=== PATIENT | female | born 1985 | race Caucasian/White ===

== ENCOUNTER 2020-01-19 19:49 | Inpatient (IN) | payer BC ==
[2020-01-19] MEDS ORDERED: Enoxaparin Sodium 80 MG/0.8 ML SYRINGE ONE (20:43)
[2020-01-19] MEDS ORDERED: Nitroglycerin 0.4 MG TAB (25 Tab Bottle) SL PRN (21:15)
[2020-01-19] MEDS ORDERED: Dextrose 5% in Water 1,000 ML IV PRN (21:15)
[2020-01-19] MEDS ORDERED: Dextrose 50% Abboject 50 ML SYRINGE SLOW IVP PRN (21:15)
[2020-01-19] MEDS ORDERED: Calcium Carbonate 500 MG ChewTAB PO PRN (21:20)
[2020-01-19] MEDS ORDERED: HumaLOG 300 UNITS/3 ML VIAL SC PRN ×2 (21:20)
[2020-01-19] MEDS ORDERED: Senokot S 8.6-50 MG TAB PO PRN (21:20)
--- NOTE | 2020-01-19 21:29 | PDOC.FPRHP ---
- History of Present Illness Chief Complaint: SOB, CP History of Present Illness: Pt is a 34 yo F with PMH of Type 1 DM, Hypothyroid, depression who presents with chief complaint of SOB and CP with exertion for the last 2-3 weeks. She had an episode today where she was walking and she got very short of breath with chest pain like an elephant was sitting on the center of her chest. She had associated dizziness, MCCARTY and "clammy feeling". It resolved with rest. These episodes happen almost every time she has exerted herself over the last 2-3 weeks but have been getting worse. She went to her PCP about 2 weeks ago to get evaluated and was given Amoxicillin, whose course was finished today, for a diagnosis of bronchit is even though she never had a cough. She also has noticed swelling in her b/l LE that started today and over the last week or so she has had to sleep sitting up in bed. She denies any recent illnesses or changes in medications. Denies fever,chills, abdominal pain, paroxysmal nocturnal dyspnea. She does not see a defensive fire control systems operator or any other specialists. Has no past history of cardiac issues. ED Course: Lasix 40mg, ASA - Allergies/Adverse Reactions Allergies Allergy/AdvReac Type Severity Reaction Status Date / Time clarithromycin [From Biaxin] Allergy Verified 01/19/20 23:52 iodine Allergy Verified 01/19/20 23:52 meperidine [From Demerol] Allergy Verified 01/19/20 23:52 - Home Medications Medication Instructions Recorded Confirmed Type Insulin Glargine,Hum.Rec.Anlog 100 units SQ DAILY 01/20/20 01/20/20 History [Lantus] Insulin Lispro [Humalog Kwikpen 100 unit SC DAILY 01/20/20 01/20/20 History U-100] Propranolol HCl [Inderal Xl] 80 mg PO HS 01/20/20 01/20/20 History Thyroid,Pork [[place] Thyroid] 120 mg PO DAILY 01/20/20 01/20/20 History Venlafaxine HCl [Effexor] 37.5 mg PO DAILY 01/20/20 01/20/20 History - History PMHx: Type 1 DM, Hypothyroid, depression PSHx: c section, hand surgery FHx: mom - stroke dad- [facility] at age 50 s/p stents grandfather-pacemaker, PE at 30 years Social: former smoker, quit 2 years ago. Used to smoke 1/4 ppd, denies alcohol or drugs - Review of Systems General: denies: fever/chills Eyes: denies: vision changes Respiratory: reports: shortness of breath, exercise intolerance. denies: cough Cardiovascular: reports: chest pain, edema. denies: palpitation Gastrointestinal: denies: nausea, vomiting Skin: denies: rashes Neurological: denies: syncope, weakness Psychological: denies: anxiety - Vital signs BP: 114/80 HR: 95 RR: 20 Tmax: 98.6 Pox: 97% on RA Wt: 75kg - Physical Exam Constitutional: NAD, awake, alert and oriented HEENT: normocephalic and atraumatic, conjunctiva clear, no scleral icterus, grossly normal vision, grossly normal hearing Neck: supple Heart: pulses present -Heart: 1-2+ pitting edema in b/l LE S3 appreciated on exam Lungs: CTAB, no respiratory distress, good air movement Abdomen: soft, non-tender Neurological: no focal deficit, CN II-XII intact Skin: no rash/lesions Psychiatric: normal mood and affect, good judgment and insight FMR H&P: Results - Labs Result Diagrams: 01/20/20 02:25 01/20/20 02:25 - EKG Interpretation EKG: normal sinus rhythm right BBB prolonged QTc at 698 FMR H&P: A/P - Plan SOB 2/2 new onset HF -new onset LLE edema, SOB and CP with exertion, orthopnea -s/p 40mg Lasix in ED, will continue with 20mg BID -elevated BNP on admission at 1284 -EKG showed new RBBB -strict I/Os -echo pending -cardiology consult in AM chest pain r/o ACS -s/p ASA and Th Lovenox in ED -indeterminate trop at .179, continue to trend -risk stratification labs pending -will hold Th Lovenox in AM pending cardiology recs and consult in the AM anemia -Hgb 10.3 on admission -iron studies pending prolonged QTc -OTc 698 on admission -avoid use of medications that prolong QT interval -continuos cardiac monitoring Type 1 DM -aware, continue home Lantus 5u qAM and 10u QHS -SSI Hypothyroid -TSH elevated on lab work -according to patient, her medication was just increased less than 4 weeks ago for this reason -outpatient follow up and management elevated liver enzymes -aware, continue to monitor -consider RUQ u/s if does not resolve depression -aware, continue home meds tachycardia -aware, hold home propanolol in case she needs a stress test Dispo: admit to tele DVT ppx: Th Lovenox Fluids: KVO Diet: HH/ NPO@midnight PCP- [facility] call Code: FULL FMR H&P: Upper Level - Plan Date/Time: 01/19/202126 Chris Kohler PGY3, have evaluated this patient and agree with findings/plan as outlined by commissioner of internal revenue resident. Pertinent changes/additions are listed here. 34-year-old female with medical history of type 1 diabetes and hypothyroidism transferred from [place] emergency room for chest pain. Onset of symptoms was a couple of weeks ago, intermittent chest pain worse with exertion and with associated shortness of breath. She was tested Covid negative. Reports today it was worse than it ever has been felt like she might pass out but did not syncopized. In [place] she was given aspirin and has been given therapeutic Lovenox in our emergency department family history notable for father who had VA at age 50. No significant substance use other than former smoker. No history of cardiac problems personally other than tachycardia. Pt states she was diagnosed with tachycardia after being evaluated for migraine. Was placed on propranolol. Has not seen defensive fire control systems operator before On exam her vitals are normal and stable. Her heart has regular rate and rhythm with no murmurs but has an S3. No JVD, +1 pitting edema in bilateral lower extremities. Pain not reproducible. Lungs clear to auscultation bilaterally. Assessment and plan Chest pain secondary to new onset CHF exacerbation with or without ACS A- Pt hemodynamically stable and s/p ASA and 1 dose Th Lovenox given at 2100. EKG conscerning for RBBB, elevated QTc. Trop indetrminate at 1.79. BNP 1284. P- Will admit to [facility] for new onset CHF, anticipate more than 2 midnights -s/p 40meq lasix and pt not requireing O2, continue 20meq lasix daily -trend trops -ECHO -FLP, mg, phos -plan for cardiology consult in the AM -npo at midnight Elevated QTc A- qtc 698 on EKG in ED P- avoid qt prolonging meds -plan for repeat either before DC or outpt Tachycardia A- Pt states she was Dx with tachycardia after being evaluated for migraine. Was placed on propranolol. Has not seen defensive fire control systems operator before P- Will hold home propranolol for probability of stress test tomorrow Microcytic anemia A- hemoglob 10.3, possibly mixed etiology P- folate/b12/iron studies -will monitor dialy CBC with lower threshold for iron infusion considering new c ardiac problems hypothyroid A- meds (throid armour) were recently increased outpt, tsh 9 P- continue home med, f/u outpt for repeat Transaminitis A- slight bump in AST/ALT/Alk Phos. No GI complaints. Considering new onset CHF possibly 2/2 congestive hepatopathy P- f/u outpt, would consider RUQ US if persistent after cardiac improvement DM1 -home insulin, accuchecks, CC diet Depression -home meds CODE: Full dispo: inpt tele PCP: [facility] IVF: KVO DVT Ppx: pt s/p 1 dose Th lovenox @ 2100, meds to follow pending mgmt per cardiology and depending on trops Addendum - Attending - Attending Attestation Date/Time: 01/19/202141 I personally evaluated the patient and discussed the management with Dr. Juarez and Dr. Brewster I agree with the History, Examination, Assessment and Plan documented above with any addition or exceptions noted below. Admit. Evaluate and treat for new onset HF. Monitor for dysrrhymia. Rule out ACS due to reported angina. Treat and adjust insulin. Make sure TSH is between 1 and 3. Joycelyn
[2020-01-19 23:32] VITALS: BMI 33.3
[2020-01-19 23:56] LABS: Hemoglobin A1c 10.9 % (4.0-6.0)
[2020-01-20 00:06] LABS: Phosphorus 3.3 mg/dL (2.3-4.7)
[2020-01-20 00:09] LABS: Iron 21 ug/dL (50-170); Iron Binding Capacity, Total 389 mcg/dL (265-497)
[2020-01-20 00:14] LABS: Troponin I 0.157 ng/mL (< 0.028)
[2020-01-20 02:56] LABS: Band 6 % (5-11); Eosinophils 10 % (0-10); Hemoglobin 9.5 g/dL (12.0-16.0); Lymphocytes 44 % (21-51); MDiff Complete? YES; Mean Corpuscular HGB CONC 30.4 g/dL (32.0-36.0); Mean Corpuscular Hemoglobin 26.3 pg (27.0-31.0); Mean Corpuscular Volume 86.8 fL (78.0-98.0); Mean Platelet Volume 8.1 fL (7.4-10.4); Monocytes 5 % (0-10); Neutrophil 35 % (42-75); Platelet Count 361 thou/uL (130-400); Platelet Morphology Comment Appears Adequate; RBC Distribution Width 13.8 % (11.5-14.5); Red Blood Cell (RBC) Count 3.62 mill/uL (4.20-5.40); White Blood Cell (WBC) Count 10.4 thou/uL (4.8-10.8)
[2020-01-20 02:57] LABS: Troponin I 0.156 ng/mL (< 0.028)
[2020-01-20 03:02] LABS: ALT (SGPT) 47 U/L (8-55); AST (SGOT) 44 U/L (5-34); Albumin 2.9 g/dL (3.5-5.0); Alkaline Phosphatase 102 U/L (40-110); Anion Gap 14 mmol/L (10-20); BUN (Urea Nitrogen) 11 mg/dL (7.0-18.7); Bilirubin, Total 0.4 mg/dL (0.2-1.2); Calc. Creatinine Clearance 122 mL/min (70-130); Calcium 8.7 mg/dL (7.8-10.44); Carbon Dioxide 24 mmol/L (22-29); Cardiac Risk 4.1 (Less than 4.5); Chloride 101 mmol/L (98-107); Cholesterol 146 mg/dl (< 200 Desired); Globulin 2.9 g/dL (2.4-3.5); Glucose 189 mg/dL (70-105); HDL Cholesterol 36 mg/dL (>60 Neg Risk); LDL Cholesterol, Calculated 90 mg/dL; Protein, Total 5.8 g/dL (6.0-8.3); Sodium 135 mmol/L (136-145); Triglycerides 100 mg/dL (Less than 150)
[2020-01-20] MEDS ORDERED: Magnesium 2 GM/50 ML 2 GM in Premix Bag 1 BAG IVPB SCH (05:30)
[2020-01-20] MEDS: Furosemide 20 MG/2 ML VIAL SLOW IVP SCH ×2 (05:49→15:25)
[2020-01-20] MEDS ORDERED: Furosemide 40 MG/4 ML VIAL SLOW IVP SCH (06:00)
--- NOTE | 2020-01-20 06:49 | PDOC.FM ---
- Subjective Subjective: Ms. Vargas was resting comfortably in bed this morning. She slept with the head of her bed slightly raised so she would not feel uncomfortable or SOB. She says she is not SOB lying in bed but has not gotten up to walk around and that's when she normally feels that way. She denies CP this AM. - Objective Vital Signs & Weight: Vital Signs (12 hours) Temp Pulse Resp BP Pulse Ox 01/20/20 04:00 98.0 F 98 16 97/56 L 93 L 01/20/20 01:04 98 01/19/20 22:30 98.2 F 92 16 109/68 98 Weight Weight 82.1 kg Result Diagrams: 01/20/20 02:25 01/20/20 02:25 EKG Reviewed by me: Yes (tele: Richard HOOPER, SR 80-90s) Phys Exam - Physical Examination Constitutional: NAD HEENT: moist MMs, sclera anicteric Neck: full ROM Respiratory: no wheezing, clear to auscultation bilateral Cardiovascular: RRR S3 Gastrointestinal: soft, non-tender Musculoskeletal: pulses present, edema present Neurological: non-focal, moves all 4 limbs Psychiatric: normal affect, A&O x 3 Skin: no rash Dx/Plan - Plan Plan: SOB 2/2 new onset HF -new onset LLE edema, SOB and CP with exertion, orthopnea -s/p 40mg Lasix in ED, Continue with 20mg BID -elevated BNP on admission at 1284 -EKG showed new RBBB -strict I/Os, dialy weights -echo pending -Cardiology consult this AM -UDS pending Chest pain likely 2/2 demand ischemia -s/p ASA and Th Lovenox in ED -trop 0.179, 0.157, 0.156 -risk stratification labs pending -Hold lovenox, cards consult this AM Normocytic anemia -Hgb 10.3 on admission -iron low, % sat low, TIBC normal, ferritin, normal, B12 low, folate normal -likely has poor diet due to DMI prolonged QTc -OTc 698 on admission -avoid use of medications that prolong QT interval -continuos cardiac monitoring Type 1 DM -Continue home Lantus 5u qAM and 10u QHS -SSI Hypothyroid -TSH elevated on lab work -according to patient, her medication was just increased less than 4 weeks ago for this reason -outpatient follow up and management Elevated liver enzymes -aware, continue to monitor -consider RUQ u/s if does not resolve Depression -Continue home meds Tachycardia -aware, hold home propanolol in case she needs a stress test Dispo: admit to tele DVT ppx: Th Lovenox Fluids: KVO Diet: HH/ NPO@midnight [facility]- [facility] call Code: FULL Addendum - Attending - Attending Attestation Date/Time: 01/20/20 1059 I personally evaluated the patient and discussed the management with Dr. Pacheco. I agree with the History, Examination, Assessment and Plan documented above with any addition or exceptions noted below. Patient stable. Here for new onset CHF. Echo, Cardiology consult, UDS, diuresis.
[2020-01-20] MEDS ORDERED: Enoxaparin Sodium 80 MG/0.8 ML SYRINGE SC SCH (09:00)
[2020-01-20] MEDS: Venlafaxine HCl 37.5 MG TAB PO SCH (09:40)
[2020-01-20] MEDS: Thyroid 60 MG TAB PO SCH (09:41)
[2020-01-20] MEDS: Insulin Glargine 5 UNITS in Pre-Filled Syringe 1 EACH SC SCH (10:31)
--- NOTE | 2020-01-20 12:38 | CON ---
DATE OF CONSULTATION: 01/20/2020 HISTORY OF PRESENT ILLNESS: This is a 34-year-old female with a past medical history of type 1 diabetes, hypothyroidism, depression, and ventricular tachycardia that she is being treated for, who presents to the hospital through the ER with a chief complaint of shortness of breath, chest pain, and dizziness. She states that the symptoms began 2 to 3 weeks ago and has been progressively worsening. She states that the symptoms are worse with exertion and resolve with rest. She states that she would have a pain in her chest that felt like pressure whenever she was walking. She saw her primary care physician who treated her for bronchitis with antibiotics. After 3 days of azithromycin and worsening symptoms, the patient presented to the ER. At that time, she experienced a presyncopal episode as well as tunnel vision. She does report associated orthopnea, but denies any paroxysmal nocturnal dyspnea. The patient also reports that she was having swelling in her legs that started one day prior to admission. In regard to her tachycardia, approximately 5 years ago, she was having headaches and some dizziness and was found to have a heart rate in the 230s. At that time, she was started on propranolol 80 mg XR and says that since then she has been improved. PAST MEDICAL HISTORY: Type 1 diabetes, hypothyroidism, depression, potentially SVT? PAST SURGICAL HISTORY: x1, left wrist surgery. SOCIAL HISTORY: Two year pack history of smoking and quit many years ago. Denies drug use. Denies alcohol use. FAMILY HISTORY: Positive family history for coronary artery disease, her father had heart stents in his 50s and her mother had a stroke at age of 62. ALLERGIES: INCLUDE IODINE, MEPERIDINE, CLARITHROMYCIN. MEDICATION LIST: 1. Lantus. 2. Propranolol 80 mg extended release. 3. Brogan Thyroid 120 mcg daily. 4. Venlafaxine 37.5 mg p.o. daily. PHYSICAL EXAMINATION: VITAL SIGNS: Temperature 98.2, pulse 94, respirations 16, O2 saturation 96% on room air, blood pressure 101/57. GENERAL: Obese female, in no acute distress. NECK: No JVD appreciated, no bruits heard. LUNGS: Clear to auscultation bilaterally. HEART: Regular rate and rhythm. No murmurs or extra heart sounds heard. ABDOMEN: Soft, nontender, no hepatic jugular distention seen. EXTREMITIES: Trace edema, 2+ radial and posterior tibial pulses bilaterally. LABORATORY DATA: Hemoglobin 9.5, hematocrit 31.4, platelets 361. Sodium 135, potassium 4.0, chloride 101, bicarb 24, BUN 11, creatinine 0.83, glucose 189, magnesium 1.3. LDL 90, HDL 63, triglycerides 100, TSH 9.06, albumin 2.9. BNP was found to be 1284.5. A1c was 10.9. Initial troponin was 0.17, now 0.15. Chest x-ray shows pulmonary edema with trace pleural effusions. EKG shows right bundle branch block. Some ST depression in V5 and V6 as well as right bundle branch block. IMPRESSION: 1. Acute heart failure. 2. Fluid overload secondary to above. 3. Potentially supraventricular tachycardia. 4. Type 1 diabetes. 5. Hypothyroidism. 6. Depression. 7. QTc prolongation PLAN: Given lack of previous heart history, we will perform heart catheterization on this patient following the echo results. The patient will need to be put on Coreg 3.125 mg b.i.d., valsartan 40 mg p.o. daily with plans to transition to Entresto upon discharge, and Lipitor 80 mg p.o. at bedtime. Continue diuresis as she has had a favorable response until now. Given the patient's iodine allergy, she will likely need to undergo desensitization with Benadryl and steroids before a heart cath possibly on Thursday. Job ID: [id number] MTDD
[2020-01-20 16:22] LABS: Amphetamine Not Detected (NotDetected); Barbiturates Screen Not Detected (NotDetected); Benzodiazepine Screen Not Detected (NotDetected); Cocaine Metabolite Screen Not Detected (NotDetected); Medtox Reader # READER 4; Methadone Not Detected (NotDetected); Methamphetamine Not Detected (NotDetected); Opiate Screen Not Detected (NotDetected); Oxycodone Screen Not Detected (NotDetected); Phencyclidine (PCP) Not Detected (NotDetected); THC/Cannabinoid Screen Not Detected (NotDetected); Tricyclic Screen Not Detected (NotDetected)
[2020-01-20 16:23] LABS: Medtox Control Line Valid? VALID (VALID)
[2020-01-20] MEDS: Carvedilol 3.125 MG TAB PO SCH (17:45)
[2020-01-20] MEDS: Acetaminophen 325 MG TAB PO PRN (20:07)
[2020-01-20] MEDS: Atorvastatin Calcium 40 MG TAB PO SCH (20:07)
[2020-01-20] MEDS: Insulin Glargine 10 UNITS in Pre-Filled Syringe 1 EACH SC SCH (21:11)
[2020-01-21 05:12] LABS: ALT (SGPT) 44 U/L (8-55); AST (SGOT) 34 U/L (5-34); Albumin 3.1 g/dL (3.5-5.0); Alkaline Phosphatase 108 U/L (40-110); Anion Gap 14 mmol/L (10-20); BUN (Urea Nitrogen) 9 mg/dL (7.0-18.7); Bilirubin, Total 0.4 mg/dL (0.2-1.2); Calc. Creatinine Clearance 123 mL/min (70-130); Calcium 8.6 mg/dL (7.8-10.44); Carbon Dioxide 26 mmol/L (22-29); Chloride 95 mmol/L (98-107); Glucose 286 mg/dL (70-105); Potassium 4.3 mmol/L (3.5-5.1); Protein, Total 6.1 g/dL (6.0-8.3); Sodium 131 mmol/L (136-145)
[2020-01-21 05:15] LABS: Band 2 % (5-11); Eosinophils 1 % (0-10); Hemoglobin 10.4 g/dL (12.0-16.0); Hypochromia SLIGHT = 6-15 cells (100X) (0-5/hpf); Lymphocytes 31 % (21-51); MDiff Complete? YES; Mean Corpuscular HGB CONC 29.9 g/dL (32.0-36.0); Mean Corpuscular Volume 86.9 fL (78.0-98.0); Mean Platelet Volume 8.6 fL (7.4-10.4); Monocytes 6 % (0-10); Neutrophil 60 % (42-75); Platelet Count 372 thou/uL (130-400); Platelet Morphology Comment Appears Adequate; RBC Distribution Width 13.8 % (11.5-14.5); Red Blood Cell (RBC) Count 4.01 mill/uL (4.20-5.40); Target Cells SLIGHT = 2-5 cells (100X) (0-1/hpf); White Blood Cell (WBC) Count 7.2 thou/uL (4.8-10.8)
--- NOTE | 2020-01-21 06:24 | PDOC.FM ---
- Subjective Subjective: Patient reports improvement in her breathing today and says she has been urinating quite a bit. Spoke with patient regarding her new diagnosis of HF. She denied alcohol or drug use and said she was last 17 years ago. - Objective Vital Signs & Weight: Vital Signs (12 hours) Temp Pulse Resp BP Pulse Ox 01/21/20 04:00 98.4 F 95 15 90/54 L 95 01/21/20 02:42 97 01/21/20 00:00 97 94/50 L 01/20/20 19:53 99.4 F 100 15 95/52 L 96 Weight Weight 82.1 kg I&O: 01/19/20 01/20/20 01/21/20 06:59 06:59 06:59 Intake Total 550 Output Total 1300 Balance -750 Result Diagrams: 01/21/20 04:18 01/21/20 04:18 Additional Labs: UDS - negative EKG Reviewed by me: Yes (tele: SR, 1st degree AVB, BBB) Radiology Reviewed by me: Yes Radiology: ECHO: EF 35-40% Phys Exam - Physical Examination Constitutional: NAD HEENT: moist MMs, sclera anicteric Neck: no JVD, full ROM Respiratory: no wheezing, clear to auscultation bilateral Cardiovascular: RRR Gastrointestinal: soft, non-tender, no distention Musculoskeletal: pulses present, edema present LE edema improved from previous days Neurological: moves all 4 limbs Psychiatric: normal affect, A&O x 3 Skin: no rash Dx/Plan - Plan Plan: SOB 2/2 new onset HF -new onset LLE edema, SOB and CP with exertion, orthopnea -BNP 1284, 1004 -UDS neg -EKG showed new RBBB -strict I/Os, daily weights: 1300mL urine output on 11/20 -Echo: EF 35-40% -Cardiology consult (): start valsartan, atorvastatin, coreg. Cath on Thursday. Will eventually be on entresto. -Decreased lasix to 20mg PO daily Chest pain likely 2/2 demand ischemia -s/p ASA and Th Lovenox in ED -trop 0.179, 0.157, 0.156 -lipids, phos wnl Normocytic anemia -Hgb 10.3, 10.4 -iron low, % sat low, TIBC normal, ferritin, normal, B12 low, folate normal -likely has poor diet due to DMI Hypomagnesium -Mg 1.3, replaced Prolonged QTc -OTc 698 on admission -avoid use of medications that prolong QT interval -continuos cardiac monitoring Type 1 DM -Continue home Lantus 5u qAM and 10u QHS -Allow patient to administer with meal insulin based on carbs, SSI prn Hypothyroid -TSH elevated, [id number] -according to patient, her medication was just increased less than 4 weeks ago for this reason -outpatient follow up and management Elevated liver enzymes, resolved -AST/ALT: 52/58, 34/44 Depression -Continue home meds Tachycardia, resolved -Hold propanolol -Continue coreg prescribed by cards Dispo: Discharge pending completion of workup for new onset HFrEF. Dr. Wharton seems to be planning for a cath on Thursday. DVT ppx: Th Lovenox Fluids: KVO Diet: HH PCP- [facility] call Code: FULL Addendum - Attending - Attending Attestation Date/Time: 01/21/20 5201 I personally evaluated the patient and discussed the management with Dr. Pacheco. I agree with the History, Examination, Assessment and Plan documented above with any addition or exceptions noted below. Patient reports feeling improved. She continues on treatment for new onset sCHF. Cardiology on board, suspect heart cath on Thursday. Continue mild diuresis and med augmentation to optimize her cardiac function.
--- NOTE | 2020-01-21 06:41 | CON ---
DATE OF CONSULTATION: ADDENDUM: To the Cardiology consult note done by Dr. Donato Castañeda. INDICATION FOR CONSULTATION: This is a 34-year-old female with new onset congestive heart failure symptoms. I have reviewed this patient. I have evaluated the patient, reviewed the patient with the Dr. Castañeda. We have also examined the patient and we have also evaluated the echocardiogram. We discussed the plan. She is a very pleasant 34-year-old female with a long history of diabetes as well as some tachycardia and hypothyroidism, who had some increasing shortness of breath with chest pain and dizziness. Her symptoms have been ongoing for a couple of weeks and she thought she had COVID, but then apparently she has had a negative test. She was started on some antibiotics, but did not get any better and she presented to the emergency room. She did have a presyncopal episode, but otherwise has been doing relatively well. She did have an echocardiogram performed today, which shows ejection fraction of 35% to 40%, the left ventricle and left atrium both appeared to be dilated as well as the right ventricle appears to be somewhat dilated. Given her long history of symptoms and diabetes with her risk factors, she has not been on previous medications for her cholesterol, which is elevated, I would suggest that she undergo cardiac catheterization as was noted in the chart by Dr. Castañeda. Her EKG does show a right bundle branch block and given the history, would proceed with cardiac catheterization in this female as she does appear to have symptoms of what I would consider to be unstable type angina. She does have a history of iodine allergies, which she says she is uncertain about. She was told about this by her mother when she was a child, but given the fact that she has been relatively stable at this time, she has no chest pain, I would consider cardiac catheterization after she has been premedicated with steroids and Benadryl and the H1 blockers. We are more than happy to continue to follow the patient with you, but I would agree with the assessment and plan as outlined by Dr. Castañeda. Most likely, we will plan for a cardiac catheterization on Thursday unless the patient deteriorates over the weekend. Job ID: [id number] MTDD
[2020-01-21] MEDS: Furosemide 20 MG/2 ML VIAL SLOW IVP SCH (07:46)
[2020-01-21] MEDS: Aspirin 81 mg Enteric Coated Tablet PO SCH (08:36)
[2020-01-21] MEDS: Venlafaxine HCl 37.5 MG TAB PO SCH (08:36)
[2020-01-21] MEDS: Valsartan 80 MG TAB PO SCH (08:37)
[2020-01-21] MEDS: Thyroid 60 MG TAB PO SCH (08:39)
[2020-01-21] MEDS: Carvedilol 3.125 MG TAB PO SCH ×2 (08:39→16:43)
[2020-01-21] MEDS: Insulin Glargine 5 UNITS in Pre-Filled Syringe 1 EACH SC SCH (08:40)
[2020-01-21] MEDS: Acetaminophen 325 MG TAB PO PRN ×2 (08:41→16:43)
--- NOTE | 2020-01-21 12:12 | PDOC.CPN ---
- Subjective Date: 01/21/20 Time: 09:35 Interval history: No overnight events, she denies any chest pain or shortness of breath. She has already been up and walking in the hallway today with no cardiac complaints. - Review of Systems General: denies: fever/chills, weight/appetite/sleep changes, night sweats, fatigue Respiratory: denies: cough, congestion, shortness of breath, exercise intolerance Cardiovascular: denies: chest pain, palpitation, edema, paroxysmal nocturnal dyspnea, orthopnea Gastrointestinal: denies: nausea, vomiting, diarrhea, constipation, abd pain, GI bleeding Musculoskeletal: denies: pain, tenderness, stiffness, swelling, arthr itis/arthralgias Neurological: denies: numbness, syncope, seizure, weakness - Objective Allergies/Adverse Reactions: Allergies Allergy/AdvReac Type Severity Reaction Status Date / Time clarithromycin [From Biaxin] Allergy Verified 01/19/20 23:52 iodine Allergy Verified 01/19/20 23:52 meperidine [From Demerol] Allergy Verified 01/19/20 23:52 Visit Medications: Current Medications Acetaminophen (Acetaminophen 325 Mg Tab) 650 mg PO Q4H PRN PRN Reason: Headache/Fever/Mild Pain (1-3) Last Admin: 01/21/20 08:41 Dose: 650 mg Documented by: Aspirin (Aspirin 81 Mg Enteric Coated Tablet) 81 mg PO DAILY [facility] Last Admin: 01/21/20 08:36 Dose: 81 mg Documented by: Atorvastatin Calcium (Atorvastatin Calcium 40 Mg Tab) 80 mg PO [facility] Last Admin: 01/20/20 20:07 Dose: 80 mg Documented by: Calcium Carbonate (Calcium Carbonate 500 Mg Chewtab) 1,000 mg PO Q4H PRN PRN Reason: Heartburn or Indigestion Carvedilol (Carvedilol 3.125 Mg Tab) 3.125 mg PO BID-[facility] Last Admin: 01/21/20 08:39 Dose: 3.125 mg Documented by: Dextrose/Water (Dextrose 50% Abboject 50 Ml Syringe) 25 gm SLOW IVP PRN PRN PRN Reason: Hypoglycemia Furosemide (Furosemide 20 Mg Tab) 20 mg PO DAILY [facility] Glucagon (Glucagon 1 Mg/Ml Vial) 1 mg IM PRN PRN PRN Reason: Hypoglycemia Dextrose/Water (D5w) 1,000 mls @ 0 mls/hr IV .Q0M PRN PRN Reason: Hypoglycemia Insulin Glargine 5 units/ (Miscellaneous Medication) 0.05 mls @ 0 mls/hr SC QAM [facility] Last Admin: 01/21/20 08:40 Dose: 0.05 mls Documented by: Insulin Glargine 10 units/ (Miscellaneous Medication) 0.1 mls @ 0 mls/hr SC HS [facility] Last Admin: 01/20/20 21:11 Dose: 0.1 mls Documented by: Insulin Human Lispro (Humalog 300 Units/3 Ml Vial) 0 units SC .BEDTIME SLIDING SC PRN PRN Reason: Bedtime Correctional Scale Insulin Human Lispro (Humalog 300 Units/3 Ml Vial) 0 units SC .MODERATE SLIDING SC PRN PRN Reason: Moderate Correctional Scale Nitroglycerin (Nitroglycerin 0.4 Mg Tab (25 Tab Bottle)) 0.4 mg SL Q5MIN PRN PRN Reason: Chest Pain Senna/Docusate Sodium (Senokot S 8.6-50 Mg Tab) 2 tab PO BID PRN PRN Reason: Constipation Sodium Chloride (Flush - Normal Saline 10 Ml Syringe) 10 ml IVF PRN PRN PRN Reason: Saline Flush Thyroid (Thyroid 60 Mg Tab) 120 mg PO DAILY [facility] Last Admin: 01/21/20 08:39 Dose: 120 mg Documented by: Valsartan (Valsartan 80 Mg Tab) 40 mg PO DAILY [facility] Last Admin: 01/21/20 08:37 Dose: 40 mg Documented by: Venlafaxine HCl (Venlafaxine Hcl 37.5 Mg Tab) 37.5 mg PO DAILY [facility] Last Admin: 01/21/20 08:36 Dose: 37.5 mg Documented by: Vital Signs & Weight: Vital Signs Temp Pulse Resp BP Pulse Ox 01/21/20 08:20 98.6 F 106 H 16 106/64 96 01/21/20 04:00 98.4 F 95 15 90/54 L 95 01/21/20 02:42 97 Weight 183 lb 1.6 oz - Quality Measures Condition: Heart Failure CV meds: Beta Josue: Yes, MERCEDEZ/ARB: Yes, Statin: Yes, ASA: Yes - Physical Exam General: alert & oriented x3, appears well, no apparent distress HEENT: mucus membranes moist, normocephaly Neck: supple neck, midline trachea, no JVD/HJR, no masses, no bruit Cardiac: regular rate and rhythm, no murmur, S1/S2 Lungs: clear to auscultation, normal breath sounds, no wheeze, rales, rhonchi Neuro: grossly intact, motor function intact, sensory function intact Abdomen: active bowel sounds, soft, non-tender Extremities: 1+ LE edema Skin: clear Musculoskeletal: normal range of motion, no pain - Labs Result Diagrams: 01/21/20 04:18 01/21/20 04:18 Troponin/CKMB Troponin I 0.156 ng/mL (< 0.028) H 01/20/20 02:25 - EKG Interpretation EKG: sinus rhythm (SR with BBB heart rate in the 90's-100's) - Assessment/Plan Assessment/Plan: 1. New onset congestive heart failures symptoms. Her echocardiogram showed an EF 35-40%, mild-moderately dilated right atrium, mildly enlarged right atrium, trace mitral regurgitation, mild tricuspid regurgitation and pulmonic regurgitation. She denies any episodes of DOWLING or CP through the night, she st ates she feels good this morning. Because of her risk factors for coronary artery disease, cardiac catheterization is recommended. She had an iodine allergy as a child but she cannot recall details about it. She will need to be diuresed and treated for her iodine allergy with steroids, Benadryl and H1 blockers before having cardiac catheterization. Risks of LHC were discussed with patient and all questions and concerns about procedure were answered to patient liking. 2. diabetes mellitus type 1: to be treated by primary service 3. Hypothyroidism: treated by primary care service 4. Depression: continue current medications, treated by primary care services. I have seen and eval. the pt. I agree with the A/P by the CONCRETE SAW OPERATOR. Plan for Cardiac cath on Thursday to evaluate the coronary status. fifi
[2020-01-21] MEDS: Insulin Glargine 10 UNITS in Pre-Filled Syringe 1 EACH SC SCH (21:41)
[2020-01-21] MEDS: Atorvastatin Calcium 40 MG TAB PO SCH (21:41)
[2020-01-22 04:43] LABS: #Eosinphils 0.5 thou/uL (0.0-0.7); #Lymphocytes 2.2 thou/uL (1.20-3.40); #Monocytes 0.8 thou/uL (0.11-0.59); #Neutrophils 5.1 thou/uL (1.40-6.50); %Basophils 0.5 % (0.0-1.0); %Eosinophils 5.7 % (0.0-10.0); %Lymphocytes 25.7 % (21.0-51.0); %Neutrophils 59.1 % (42.0-75.0); Mean Corpuscular HGB CONC 30.7 g/dL (32.0-36.0); Mean Corpuscular Volume 88.1 fL (78.0-98.0); Mean Platelet Volume 8.4 fL (7.4-10.4); Platelet Count 378 thou/uL (130-400); RBC Distribution Width 13.8 % (11.5-14.5); Red Blood Cell (RBC) Count 4.07 mill/uL (4.20-5.40); White Blood Cell (WBC) Count 8.7 thou/uL (4.8-10.8)
[2020-01-22 04:52] LABS: ALT (SGPT) 37 U/L (8-55); AST (SGOT) 34 U/L (5-34); Albumin 3.1 g/dL (3.5-5.0); Alkaline Phosphatase 100 U/L (40-110); Anion Gap 16 mmol/L (10-20); BUN (Urea Nitrogen) 12 mg/dL (7.0-18.7); Bilirubin, Total 0.3 mg/dL (0.2-1.2); Calc. Creatinine Clearance 122 mL/min (70-130); Calcium 9.2 mg/dL (7.8-10.44); Carbon Dioxide 27 mmol/L (22-29); Chloride 98 mmol/L (98-107); Globulin 3.1 g/dL (2.4-3.5); Glucose 173 mg/dL (70-105); Protein, Total 6.2 g/dL (6.0-8.3); Sodium 136 mmol/L (136-145)
--- NOTE | 2020-01-22 06:30 | PDOC.FM ---
- Subjective Subjective: Ms. Vargas was resting comfortably in bed this morning with no complaints. She reports improvement in her breathing and denies any CP or SOB. - Objective Vital Signs & Weight: Vital Signs (12 hours) Temp Pulse Resp BP Pulse Ox 01/22/20 04:00 98.9 F 108 H 14 96/55 L 94 L 01/22/20 01:01 92 L 01/21/20 20:50 98.5 F 97 20 102/72 97 Weight Weight 81.647 kg I&O: 01/20/20 01/21/20 01/22/20 06:59 06:59 06:59 Intake Total 680 2072 Output Total 2700 4839 Balance -2019 Result Diagrams: 01/22/20 04:04 01/22/20 04:04 EKG Reviewed by me: Yes (tele: SR 100-110s) Phys Exam - Physical Examination Constitutional: NAD HEENT: moist MMs, sclera anicteric Neck: full ROM Respiratory: no wheezing, no rales, no rhonchi, clear to auscultation bilateral Cardiovascular: RRR, no significant murmur Gastrointestinal: soft, non-tender Musculoskeletal: pulses present trace LE edema Neurological: moves all 4 limbs Psychiatric: normal affect, A&O x 3 Skin: no rash Dx/Plan - Plan Plan: SOB 2/2 new onset HF -new onset LLE edema, SOB and CP with exertion, orthopnea -BNP 1284, 1004 -UDS neg -EKG showed new RBBB -strict I/Os, daily weights: 4839mL urine output on 11/21 -Echo: EF 35-40% -Cardiology consult (): start valsartan, atorvastatin, coreg. Cath on Thursday. Will eventually be on entresto. -Lasix 20mg PO daily -steroids, benadryl, H1 blockers for prophylaxis for possible iodine allergy today in preparation for cath tomorrow Chest pain likely 2/2 demand ischemia -s/p ASA and Th Lovenox in ED -trop 0.179, 0.157, 0.156 -lipids, phos wnl Normocytic anemia -Hgb 10.3, 10.4, 11 -iron low, % sat low, TIBC normal, ferritin, normal, B12 low, folate normal -likely has poor diet due to DMI Hypomagnesium, resolved -Mg 1.3, 1.7 Prolonged QTc -OTc 698 on admission -avoid use of medications that prolong QT interval -continuos cardiac monitoring Type 1 DM -Continue home Lantus 5u qAM and 10u QHS -Allow patient to administer with meal insulin based on carbs, SSI prn Hypothyroid -TSH elevated, [id number] -according to patient, her medication was just increased less than 4 weeks ago for this reason -outpatient follow up and management Elevated liver enzymes, resolved -AST/ALT: 52/58, 34/44 Depression -Continue home meds Tachycardia, resolved -Hold propanolol -Continue coreg prescribed by cards Dispo: Discharge pending completion of workup for new onset HFrEF. Cath on Thursday. DVT ppx: SCDs Fluids: KVO Diet: HH PCP- [facility] call Code: FULL Addendum - Attending - Attending Attestation Date/Time: 01/22/20 0169 I personally evaluated the patient and discussed the management with Dr. Pacheco. I agree with the History, Examination, Assessment and Plan documented above with any addition or exceptions noted below. Patient stable, feeling well. Continues to diurese well. Plan from Cardiology is for heart cath tomorrow to evaluate her cause of early onset sCHF. Continue current regimen for now, it appears she will tolerate Entresto whenever it is initiated by Cardiology.
[2020-01-22] MEDS: Valsartan 80 MG TAB PO SCH (09:39)
[2020-01-22] MEDS: Furosemide 20 MG TAB PO SCH (09:39)
[2020-01-22] MEDS: Aspirin 81 mg Enteric Coated Tablet PO SCH (09:39)
[2020-01-22] MEDS: Carvedilol 3.125 MG TAB PO SCH ×2 (09:39→16:42)
[2020-01-22] MEDS: Insulin Glargine 5 UNITS in Pre-Filled Syringe 1 EACH SC SCH (09:44)
[2020-01-22] MEDS: Venlafaxine HCl 37.5 MG TAB PO SCH (11:07)
[2020-01-22] MEDS ORDERED: diphenhydrAMINE 50 MG CAP PO SCH (11:15)
[2020-01-22] MEDS ORDERED: Famotidine/PF 20 mg/2ml Vial SLOW IVP SCH (11:15)
[2020-01-22] MEDS ORDERED: Communication Order-Pharmacy FS SCH (11:15)
[2020-01-22] MEDS: Thyroid 60 MG TAB PO SCH (12:04)
--- NOTE | 2020-01-22 15:46 | PDOC.CPN ---
- Subjective Date: 01/22/20 Time: 09:30 Interval history: No overnight events, patient remains in sinus rhythm but has had a few episodes of sinus tachycardia. She denies any chest pain or trouble breathing today, her edema to her BLE is resolved, she has been up and walking in the hallways with no cardiac complaints. - Review of Systems General: denies: fever/chills, weight/appetite/sleep changes, night sweats, fatigue Respiratory: denies: cough, congestion, shortness of breath, exercise intolerance Cardiovascular: denies: chest pain, palpitation, edema, paroxysmal nocturnal dyspnea, orthopnea Gastrointestinal: denies: nausea, vomiting, diarrhea, constipation, abd pain, GI bleeding Musculoskeletal: denies: pain, tenderness, stiffness, swelling, arthritis/arthralgias Neurological: denies: numbness, syncope, seizure, weakness - Objective Allergies/Adverse Reactions: Allergies Allergy/AdvReac Type Severity Reaction Status Date / Time clarithromycin [From Biaxin] Allergy Verified 01/19/20 23:52 iodine Allergy Verified 01/19/20 23:52 meperidine [From Demerol] Allergy Verified 01/19/20 23:52 Visit Medications: Current Medications Acetaminophen (Acetaminophen 325 Mg Tab) 650 mg PO Q4H PRN PRN Reason: Headache/Fever/Mild Pain (1-3) Last Admin: 01/21/20 16:43 Dose: 650 mg Documented by: Aspirin (Aspirin 81 Mg Enteric Coated Tablet) 81 mg PO DAILY [facility] Last Admin: 01/22/20 09:39 Dose: 81 mg Documented by: Atorvastatin Calcium (Atorvastatin Calcium 40 Mg Tab) 80 mg PO [facility] Last Admin: 01/21/20 21:41 Dose: 80 mg Documented by: Calcium Carbonate (Calcium Carbonate 500 Mg Chewtab) 1,000 mg PO Q4H PRN PRN Reason: Heartburn or Indigestion Carvedilol (Carvedilol 3.125 Mg Tab) 3.125 mg PO BID-[facility] Last Admin: 01/22/20 09:39 Dose: 3.125 mg Documented by: Dextrose/Water (Dextrose 50% Abboject 50 Ml Syringe) 25 gm SLOW IVP PRN PRN PRN Reason: Hypoglycemia Diphenhydramine HCl (Diphenhydramine 50 Mg Cap) 50 mg PO [facility] Stop: 01/23/20 23:59 Famotidine (Famotidine/Pf 20 Mg/2ml Vial) 20 mg SLOW IVP [facility] Stop: 01/23/20 23:59 Furosemide (Furosemide 20 Mg Tab) 20 mg PO DAILY [facility] Last Admin: 01/22/20 09:39 Dose: 20 mg Documented by: Glucagon (Glucagon 1 Mg/Ml Vial) 1 mg IM PRN PRN PRN Reason: Hypoglycemia Dextrose/Water (D5w) 1,000 mls @ 0 mls/hr IV .Q0M PRN PRN Reason: Hypoglycemia Insulin Glargine 5 units/ (Miscellaneous Medication) 0.05 mls @ 0 mls/hr SC QAM [facility] Last Admin: 01/22/20 09:44 Dose: 0.05 mls Documented by: Insulin Glargine 10 units/ (Miscellaneous Medication) 0.1 mls @ 0 mls/hr SC HS [facility] Last Admin: 01/21/20 21:41 Dose: 0.1 mls Documented by: Insulin Human Lispro (Humalog 300 Units/3 Ml Vial) 0 units SC .BEDTIME SLIDING SC PRN PRN Reason: Bedtime Correctional Scale Insulin Human Lispro (Humalog 300 Units/3 Ml Vial) 0 units SC .MODERATE SLIDING SC PRN PRN Reason: Moderate Correctional Scale Miscellaneous Information (Communication Order-Pharmacy ) 0 each FS ONE [facility] Stop: 01/23/20 23:59 Nitroglycerin (Nitroglycerin 0.4 Mg Tab (25 Tab Bottle)) 0.4 mg SL Q5MIN PRN PRN Reason: Chest Pain Prednisone (Prednisone 20 Mg Tab) 40 mg PO 2100 [facility] Stop: 01/22/20 23:59 Prednisone (Prednisone 20 Mg Tab) 20 mg PO 0600 [facility] Stop: 01/23/20 09:00 Senna/Docusate Sodium (Senokot S 8.6-50 Mg Tab) 2 tab PO BID PRN PRN Reason: Constipation Sodium Chloride (Flush - Normal Saline 10 Ml Syringe) 10 ml IVF PRN PRN PRN Reason: Saline Flush Last Admin: 01/22/20 09:45 Dose: 10 ml Documented by: Thyroid (Thyroid 60 Mg Tab) 120 mg PO DAILY [facility] Last Admin: 01/22/20 12:04 Dose: 120 mg Documented by: Valsartan (Valsartan 80 Mg Tab) 40 mg PO DAILY [facility] Last Admin: 01/22/20 09:39 Dose: 40 mg Documented by: Venlafaxine HCl (Venlafaxine Hcl 37.5 Mg Tab) 37.5 mg PO DAILY [facility] Last Admin: 01/22/20 11:07 Dose: 37.5 mg Documented by: Vital Signs & Weight: Vital Signs Temp Pulse Resp BP Pulse Ox 01/22/20 12:44 98.1 F 111 H 16 91/50 L 01/22/20 08:00 96.5 F L 104 H 18 112/55 L 104 H 01/22/20 04:00 98.9 F 108 H 14 96/55 L 94 L Weight 180 lb - Quality Measures Condition: Heart Failure CV meds: Beta Josue: Yes, MERCEDEZ/ARB: Yes, Statin: Yes, ASA: Yes - Physical Exam General: alert & oriented x3, appears well, no apparent distress HEENT: mucus membranes moist Neck: supple neck, no masses, no bruit Cardiac: regular rate and rhythm, no murmur, S1/S2 Lungs: clear to auscultation, normal breath sounds, normal exam, no wheeze, rales, rhonchi Neuro: grossly intact, motor function intact, sensory function intact Abdomen: active bowel sounds, soft, non-tender Extremities: no clubbing, no edema, 2+ Posterior Tibial, 2+ Dorsalis Pedus Skin: clear Musculoskeletal: normal range of motion, no pain, no fluid collection - Labs Result Diagrams: 01/22/20 04:04 01/22/20 04:04 Troponin/CKMB Troponin I 0.156 ng/mL (< 0.028) H 01/20/20 02:25 - EKG Interpretation EKG Method: Telemetry EKG: sinus rhythm - Assessment/Plan Assessment/Plan: 1. New onset congestive heart failures symptoms.She denies any chest pain or shortness of breath overnight, her BLE edema has resolved, she did diuresis a large amount yesterday, she states that she does feel better. She will have a heart catheterization tomorrow, she will be pre-medicated for iodine allergy before hand. She did have an episode of sinus tachycardia, we will not increase her betablocker at this time d/t SBP in the low 100's, we will continue to monitor. 2. diabetes mellitus type 1: to be treated by primary service 3. Hypothyroidism: treated by primary care service 4. Depression: continue current medications, treated by primary care services. Pt. seen and eval. by me. I agree with the A/P by the VOLUMETRIC WEIGHER. Discussed cardiac cath again. Questions answered. Plan for cath in AM . fifi
[2020-01-22] MEDS ORDERED: Loratadine 10 MG TAB PO SCH (17:00)
[2020-01-22] MEDS ORDERED: predniSONE 20 MG TAB PO SCH (21:00)
[2020-01-22] MEDS: Atorvastatin Calcium 40 MG TAB PO SCH (21:28)
[2020-01-22] MEDS: Insulin Glargine 10 UNITS in Pre-Filled Syringe 1 EACH SC SCH (21:28)
[2020-01-23 05:10] LABS: #Basophils 0.1 thou/uL (0.0-0.2); #Lymphocytes 1.5 thou/uL (1.20-3.40); #Monocytes 0.2 thou/uL (0.11-0.59); #Neutrophils 6.8 thou/uL (1.40-6.50); %Basophils 0.7 % (0.0-1.0); %Eosinophils 0.1 % (0.0-10.0); %Monocytes 2.2 % (0.0-10.0); Hemoglobin 11.2 g/dL (12.0-16.0); Mean Corpuscular HGB CONC 29.9 g/dL (32.0-36.0); Mean Corpuscular Hemoglobin 25.8 pg (27.0-31.0); Mean Corpuscular Volume 86.2 fL (78.0-98.0); Mean Platelet Volume 8.8 fL (7.4-10.4); Platelet Count 422 thou/uL (130-400); Red Blood Cell (RBC) Count 4.33 mill/uL (4.20-5.40); White Blood Cell (WBC) Count 8.5 thou/uL (4.8-10.8)
[2020-01-23 05:19] LABS: ALT (SGPT) 43 U/L (8-55); AST (SGOT) 54 U/L (5-34); Albumin 3.5 g/dL (3.5-5.0); Alkaline Phosphatase 107 U/L (40-110); Anion Gap 23 mmol/L (10-20); BUN (Urea Nitrogen) 17 mg/dL (7.0-18.7); Bilirubin, Total 0.4 mg/dL (0.2-1.2); Calc. Creatinine Clearance 104 mL/min (70-130); Calcium 8.9 mg/dL (7.8-10.44); Carbon Dioxide 19 mmol/L (22-29); Chloride 95 mmol/L (98-107); Globulin 3.4 g/dL (2.4-3.5); Glucose 371 mg/dL (70-105); Potassium 5.6 mmol/L (3.5-5.1); Protein, Total 6.9 g/dL (6.0-8.3); Sodium 131 mmol/L (136-145)
[2020-01-23] MEDS: Carvedilol 3.125 MG TAB PO SCH ×2 (05:52→17:23)
[2020-01-23] MEDS: Insulin Glargine 5 UNITS in Pre-Filled Syringe 1 EACH SC SCH ×2 (05:53→06:31)
[2020-01-23] MEDS: Thyroid 60 MG TAB PO SCH (05:53)
[2020-01-23] MEDS: Furosemide 20 MG TAB PO SCH ×2 (05:53→09:54)
[2020-01-23] MEDS: Aspirin 81 mg Enteric Coated Tablet PO SCH (05:53)
[2020-01-23] MEDS: Valsartan 80 MG TAB PO SCH (05:54)
[2020-01-23] MEDS: Venlafaxine HCl 37.5 MG TAB PO SCH (05:54)
[2020-01-23] MEDS ORDERED: predniSONE 20 MG TAB PO SCH (06:00)
--- NOTE | 2020-01-23 06:10 | PDOC.FM ---
- Subjective Subjective: Macie is feeling well this morning. She had just come back from her cath and stated Dr. Wharton was going to consult with her team before deciding which course of action to take next. 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 She is also aware her DM is a risk factor for heart disease, in addition to a strong family hx of heart disease and [place]. She does not have an windscreen fitter but would like to see one and get a pump. - Objective Vital Signs & Weight: Vital Signs (12 hours) Temp Pulse Resp BP Pulse Ox 01/23/20 04:00 98.0 F 108 H 18 102/61 95 01/23/20 00:00 111 H 103/58 L 01/22/20 20:00 97.3 F L 70 16 101/61 97 Weight Weight 81.647 kg I&O: 01/21/20 01/22/20 01/23/20 06:59 06:59 06:59 Intake Total 680 6472 970 Output Total 4834 9990 1999 Balance -8917 -1030 Result Diagrams: 01/23/20 04:27 01/23/20 04:27 Phys Exam - Physical Examination Constitutional: NAD Neck: supple, full ROM Neurological: non-focal, moves all 4 limbs Psychiatric: normal affect, A&O x 3 Skin: no rash Dx/Plan - Plan Plan: This is a 34yo F who presented for SOB on exertion, orthopnea, b/l LE edema, and central CP, found to have new-onset CHF. SOB 2/2 new onset HF -BNP 1284, 1004 -EKG showed new RBBB -Echo: EF 35-40% with global hypokinesia -strict I/Os, daily weights: -Cardiology consult (Akiko): start valsartan, atorvastatin, coreg * Plan is to ultimately be on entresto * Cath today. Premedication with steroids, benadryl, H1 blockers for prophylaxis for possible iodine allergy -Lasix 20mg PO daily Chest pain likely 2/2 demand ischemia -s/p ASA and Th Lovenox in ED -trop 0.179, 0.157, 0.156 -lipids, phos wnl Normocytic anemia -Hgb 10.3, 10.4, 11 -iron low, % sat low, TIBC normal, ferritin normal, B12 low, folate normal - concerning for Fe def anemia -likely has poor diet due to DMI -recommend outpt Fe supplementation and workup for cause Prolonged QTc -QTc 698 on admission -avoid use of medications that prolong QT interval -continuous cardiac monitoring Type 1 DM -Continue home Lantus 5u qAM and 10u QHS -A1c 10.9 -Allow patient to administer with meal insulin based on carbs, SSI prn -Recommend f/u with windscreen fitter -BGs elevated currently, suspected to be 2/2 prednisone pre-medication prior to heart cath. * Mod SSI and bedtime SSI ordered. * Monitor BGs after d/c of steroid. If continue to be elevated, will increase insulin regimen Hypothyroid -TSH elevated, 9.9 -according to patient, her medication was just increased less than 4 weeks ago for this reason -outpatient follow up and management Depression -Continue home meds Tachycardia, resolved -Hold propanolol -Continue coreg prescribed by cards Elevated liver enzymes, resolved Hypomagnesemia, resolved Dispo: Discharge pending cardiology recommendations following cath results. DVT ppx: SCDs Fluids: KVO Diet: HH PCP- [facility] call Code: FULL
[2020-01-23] MEDS ORDERED: Heparin 10,000 UNITS/ 10 ML VIAL ONE (07:14)
[2020-01-23] MEDS ORDERED: Nitroglycerin 100MG/250ML BOT 250 ML ONE (07:14)
[2020-01-23] MEDS ORDERED: Verapamil 5 MG/2 ML VIAL ONE (07:14)
[2020-01-23] MEDS ORDERED: Midazolam HCl 2 mg/2 ml Vial ONE (07:17)
[2020-01-23] MEDS ORDERED: Fentanyl 100 MCG/2 ML VIAL ONE (07:17)
[2020-01-23] MEDS ORDERED: Spironolactone 25 MG TAB PO SCH (08:45)
[2020-01-23] MEDS ORDERED: Nitroglycerin 0.4 MG TAB (25 Tab Bottle) SL PRN (09:00)
[2020-01-23] MEDS ORDERED: Sodium Chloride 0.9% 200 ML IV PRN (09:00)
[2020-01-23] MEDS ORDERED: Acetaminophen/Codeine 30-300mg Tablet PO PRN ×2 (09:00)
[2020-01-23] MEDS ORDERED: Loratadine 10 MG TAB PO SCH (09:00)
[2020-01-23] MEDS ORDERED: Iopamidol 370 76% 100 ML VIAL ONE (09:21)
[2020-01-23] MEDS ORDERED: Iopamidol 370 76% 50 ML VIAL FS ONE (09:21)
--- NOTE | 2020-01-23 14:04 | PRG ---
DATE OF SERVICE: 01/23/2020 Ms. Vargas is a pleasant 34-year-old lady, who has had type 1 diabetes since the age of 11, which was 23 years ago. She presented with new-onset heart failure. She had cardiac catheterization today, which showed an 80% occlusion of a major artery, but she does not know which one, and her report is not back yet. Cardiology will decide upon medical management versus bypass, but as stated, we do not have their cath report back yet. We also emphasized to Ms. Vargas the importance of better control of her type 1 diabetes as she does have an A1c in excess of 10. We have advised her to see an clothing room supervisor after hospitalization to consider a pump. She states that this was in the works before she became ill enough to be hospitalized and she will definitely follow up on this upon discharge. Job ID: [id number]
--- NOTE | 2020-01-23 17:10 | PDOC.CPN ---
- Subjective Date: 01/23/20 Time: 07:00 Interval history: no new issues. Feels good. No chest pain or dyspnea. - Review of Systems General: denies: fever/chills, weight/appetite/sleep changes, night sweats, fatigue Respiratory: denies: cough, congestion, shortness of breath, exercise intolerance Cardiovascular: denies: chest pain, palpitation, edema, paroxysmal nocturnal dyspnea, orthopnea Gastrointestinal: denies: nausea, vomiting, diarrhea, constipation, abd pain, GI bleeding Musculoskeletal: denies: pain, tenderness, stiffness, swelling, arthritis/ arthralgias Neurological: denies: numbness, syncope, seizure, weakness - Objective Allergies/Adverse Reactions: Allergies Allergy/AdvReac Type Severity Reaction Status Date / Time clarithromycin [From Biaxin] Allergy Verified 01/19/20 23:52 iodine Allergy Verified 01/19/20 23:52 meperidine [From Demerol] Allergy Verified 01/19/20 23:52 Visit Medications: Current Medications Acetaminophen (Acetaminophen 325 Mg Tab) 650 mg PO Q4H PRN PRN Reason: Headache/Fever/Mild Pain (1-3) Last Admin: 01/21/20 16:43 Dose: 650 mg Documented by: Acetaminophen/Codeine Phosphate (Acetaminophen/Codeine 30-300mg Tablet) 1 tab PO Q4H PRN PRN Reason: Mild Pain (1-3) Acetaminophen/Codeine Phosphate (Acetaminophen/Codeine 30-300mg Tablet) 2 tab PO Q4H PRN PRN Reason: Moderate Pain (4-6) Aspirin (Aspirin 81 Mg Enteric Coated Tablet) 81 mg PO DAILY COUNTS INCLUDE 234 BEDS AT THE [facility] Last Admin: 01/23/20 05:53 Dose: 81 mg Documented by: Atorvastatin Calcium (Atorvastatin Calcium 40 Mg Tab) 80 mg PO [facility] Last Admin: 01/22/20 21:28 Dose: 80 mg Documented by: Calcium Carbonate (Calcium Carbonate 500 Mg Chewtab) 1,000 mg PO Q4H PRN PRN Reason: Heartburn or Indigestion Carvedilol (Carvedilol 3.125 Mg Tab) 3.125 mg PO BID-[facility] Last Admin: 01/23/20 05:52 Dose: 3.125 mg Documented by: Dextrose/Water (Dextrose 50% Abboject 50 Ml Syringe) 25 gm SLOW IVP PRN PRN PRN Reason: Hypoglycemia Diphenhydramine HCl (Diphenhydramine 50 Mg Cap) 50 mg PO [place]CALL COUNTS INCLUDE 234 BEDS AT THE [facility] Stop: 01/23/20 23:59 Famotidine (Famotidine/Pf 20 Mg/2ml Vial) 20 mg SLOW IVP [place] COUNTS INCLUDE 234 BEDS AT THE [facility] Stop: 01/23/20 23:59 Ferrous Sulfate (Ferrous Sulfate 325 Mg Tab) 325 mg PO Q2DAYS COUNTS INCLUDE 234 BEDS AT THE [facility] Furosemide (Furosemide 20 Mg Tab) 20 mg PO DAILY COUNTS INCLUDE 234 BEDS AT THE [facility] Last Admin: 01/23/20 09:54 Dose: 20 mg Documented by: Glucagon (Glucagon 1 Mg/Ml Vial) 1 mg IM PRN PRN PRN Reason: Hypoglycemia Dextrose/Water (D5w) 1,000 mls @ 0 mls/hr IV .Q0M PRN PRN Reason: Hypoglycemia Insulin Glargine 5 units/ (Miscellaneous Medication) 0.05 mls @ 0 mls/hr SC QAM COUNTS INCLUDE 234 BEDS AT THE [facility] Last Admin: 01/23/20 06:31 Dose: 0.05 mls Documented by: Insulin Glargine 10 units/ (Miscellaneous Medication) 0.1 mls @ 0 mls/hr SC HS COUNTS INCLUDE 234 BEDS AT THE [facility] Last Admin: 01/22/20 21:28 Dose: 0.1 mls Documented by: Sodium Chloride (Normal Saline 0.9%) 200 mls @ 0 mls/hr IV ONE PRN PRN Reason: SBP < 90 Stop: 01/23/20 21:00 Insulin Human Lispro (Humalog 300 Units/3 Ml Vial) 0 units SC .BEDTIME SLIDING SC PRN PRN Reason: Bedtime Correctional Scale Insulin Human Lispro (Humalog 300 Units/3 Ml Vial) 0 units SC .MODERATE SLIDING SC PRN PRN Reason: Moderate Correctional Scale Miscellaneous Information (Communication Order-Pharmacy ) 0 each FS ONE COUNTS INCLUDE 234 BEDS AT THE [facility] Stop: 01/23/20 23:59 Nitroglycerin (Nitroglycerin 0.4 Mg Tab (25 Tab Bottle)) 0.4 mg SL Q5MIN PRN PRN Reason: Chest Pain Nitroglycerin (Nitroglycerin 0.4 Mg Tab (25 Tab Bottle)) 0.4 mg SL Q5MIN PRN PRN Reason: Chest Pain Senna/Docusate Sodium (Senokot S 8.6-50 Mg Tab) 2 tab PO BID PRN PRN Reason: Constipation Sodium Chloride (Flush - Normal Saline 10 Ml Syringe) 10 ml IVF PRN PRN PRN Reason: Saline Flush Last Admin: 01/22/20 09:45 Dose: 10 ml Documented by: Thyroid (Thyroid 60 Mg Tab) 120 mg PO DAILY COUNTS INCLUDE 234 BEDS AT THE [facility] Last Admin: 01/23/20 05:53 Dose: 120 mg Documented by: Valsartan (Valsartan 80 Mg Tab) 40 mg PO DAILY COUNTS INCLUDE 234 BEDS AT THE [facility] Last Admin: 01/23/20 05:54 Dose: 40 mg Documented by: Venlafaxine HCl (Venlafaxine Hcl 37.5 Mg Tab) 37.5 mg PO DAILY COUNTS INCLUDE 234 BEDS AT THE [facility] Last Admin: 01/23/20 05:54 Dose: 37.5 mg Documented by: Vital Signs & Weight: Vital Signs Temp Pulse Resp BP BP BP BP 01/23/20 12:35 106/55 L 101/50 L 01/23/20 12:00 97.5 F L 107 H 18 108/55 L 01/23/20 11:20 98.2 F 108 H 17 108/55 L 01/23/20 09:00 97.5 F L 104 H 18 102/63 01/23/20 08:50 97.5 F L 104 H 18 102/63 BP Pulse Ox 01/23/20 12:35 109/59 L 01/23/20 12:00 97 01/23/20 11:20 97 01/23/20 09:00 102/63 97 01/23/20 08:50 97 Weight 174 lb - Quality Measures Condition: Heart Failure CV meds: Beta Josue: Yes, MERCEDEZ/ARB: Yes, Statin: Yes, ASA: Yes - Physical Exam HEENT: mucus membranes moist Neck: supple neck, no bruit, no lymphadenopathy Cardiac: regular rate and rhythm Lungs: clear to auscultation Neuro: grossly intact Abdomen: unremarkable Extremities: no edema Musculoskeletal: normal range of motion - Labs Result Diagrams: 01/23/20 04:27 01/23/20 04:27 Troponin/CKMB Troponin I 0.156 ng/mL (< 0.028) H 01/20/20 02:25 - Assessment/Plan Assessment/Plan: 1. New onset congestive heart failures symptoms.She denies any chest pain or shortness of breath overnight, her BLE edema has resolved, she did diuresis a large amount yesterday, she states that she does feel better. She will have a heart catheterization tomorrow, she will be pre-medicated for iodine allergy before hand. She did have an episode of sinus tachycardia, we will not increase her betablocker at this time d/t SBP in the low 100's, we will continue to monitor. 2. diabetes mellitus type 1: to be treated by primary service 3. Hypothyroidism: treated by primary care service 4. Depression: continue current medications, treated by primary care services. Addendum: cath today indicates 3 vessel disease involving the mid LAD with 80-90%. Small vessels. will discuss with CV surgery for possible MEJIA to LAD. Continue aggressive medical management.
[2020-01-23] MEDS: Ferrous Sulfate 325 MG TAB PO SCH (17:23)
--- NOTE | 2020-01-23 18:33 | CON ---
DATE OF CONSULTATION: HISTORY OF PRESENT ILLNESS: This is 34-year-old female with about a 2-to 3-week history of symptoms consistent with congestive heart failure with dyspnea, PND, and lower extremity edema associated with some pressure on her chest. She had a cardiac echo showing an EF of 35% to 40% with dilated left ventricle. She had a BMP of greater than 1000 on admission. She has been borderline hypotensive and tachycardic over 100 while in the hospital. Her pertinent laboratory values include a hemoglobin A1c of 10.9, which is higher than her usual. She also had a cholesterol of 146 and triglyceride of 100. Normal creatinine and she was COVID tested negative in the [place] [facility]. Cardiac catheterization was done today by Dr. Wharton, showing triple-vessel coronary artery disease with decrease in left ventricular systolic function. In general, she had small coronary arteries consistent with her body habitus. Her right coronary artery had about a 50% to 60% stenosis in its proximal 3rd. The LAD had about 70% stenosis extending for about a centimeter or two just after a normal first diagonal. On some views, this area of narrowing almost look like a myocardial bridge, but on others, it was more suggestive of stenosis. She also had a significant distal stenosis after the last diagonal branch. LAD was small distally. Circumflex consisted of three branches. The first of which had about a 60% to 70% stenosis and then the second branch was divided into the 2nd and 3rd vessels at about a 60% to 70% narrowing. PAST MEDICAL HISTORY: Includes hypothyroidism and type 1 diabetes mellitus, for which she has had for about 20 years. SOCIAL HISTORY: She is nonsmoker. She works at the [employer] and [employer]. ALLERGIES: TO BIAXIN, IODINE, AND DEMEROL. HOME MEDICATIONS: Include 15 units long-acting insulin daily and then p.r.n. sliding-scale insulin. She is on 120 mg a day of [place] Thyroid and takes Effexor 37.5 mg for depression. She was taking Inderal in the past for tachycardia, but that was stopped. PAST SURGICAL HISTORY: Includes and hand surgery. SOCIAL HISTORY: As noted. She used to smoke small amount of cigarettes daily, but none in 2 years. REVIEW OF SYSTEMS: The patient states that she does have lower extremity edema and then extending as high as up into her abdomen in the past 2 to 3 days. She has had no history of TIA symptoms. PHYSICAL EXAMINATION: GENERAL: On examination, she is a pale female, in no distress with a recorded height of 5 feet and 2 inches, recorded weight of 174. VITAL SIGNS: Her blood pressure is about 100 systolic and her heart rate is about 110. NECK: No carotid bruits. LUNGS: Clear to auscultation anteriorly. CARDIAC: Tachycardia with no murmurs. ABDOMEN: Soft and nontender. EXTREMITIES: She has no edema with palpable femoral and dorsalis pedis pulses. DIAGNOSTIC DATA: Evaluation otherwise includes chest x-ray showing cardiomegaly and some increased interstitial markings. ASSESSMENT AND PLAN: 1. Congestive heart failure with cardiomegaly and decreased cardiac systolic function, previously untreated or at least treated inappropriately with antibiotics for bronchitis. 2. Three-vessel coronary artery disease, moderate to severe with small distal targets and probably distal disease at least documented in the left anterior descending on current angiography. 3. Type 1 diabetes mellitus, presently with elevated A1c. The patient does have small targets and probably a first option would be medical management at least controlling her congestive heart failure and resting tachycardia. I would not exclude her down the road for possible coronary artery bypass grafting depending on her course, but at this time would lean toward medical management given her small targets at young age and diffuse disease and ongoing failure symptoms. Job ID: [id number]
[2020-01-23] MEDS: Atorvastatin Calcium 40 MG TAB PO SCH (20:54)
[2020-01-23] MEDS: Insulin Glargine 10 UNITS in Pre-Filled Syringe 1 EACH SC SCH (20:55)
[2020-01-24 05:13] LABS: ALT (SGPT) 40 U/L (8-55); AST (SGOT) 38 U/L (5-34); Albumin 3.2 g/dL (3.5-5.0); Alkaline Phosphatase 95 U/L (40-110); Anion Gap 15 mmol/L (10-20); BUN (Urea Nitrogen) 25 mg/dL (7.0-18.7); Bilirubin, Total 0.4 mg/dL (0.2-1.2); Calc. Creatinine Clearance 109 mL/min (70-130); Calcium 8.8 mg/dL (7.8-10.44); Carbon Dioxide 25 mmol/L (22-29); Chloride 96 mmol/L (98-107); Globulin 3.2 g/dL (2.4-3.5); Glucose 264 mg/dL (70-105); Potassium 4.4 mmol/L (3.5-5.1); Protein, Total 6.4 g/dL (6.0-8.3); Sodium 132 mmol/L (136-145)
--- NOTE | 2020-01-24 05:32 | PDOC.FM ---
- Subjective Subjective: Ms. Vargas is doing well this morning. Dr. Hallman had already met with her and described the plan which she understood and was agreeable to. She has been administering mealtime insulin 3x daily based on carb counting. She states she typically uses 10-12u per meal but recognizes her BGs are not adequate. She denies CP, SOB this am. She had an episode of low BP last night with SBP in the upper 80s which she states she felt "weird" during. There was no change in her tele strip around that time. - Objective Vital Signs & Weight: Vital Signs (12 hours) Temp Pulse Resp BP BP Pulse Ox 01/24/20 04:54 98.5 F 110 H 14 96/54 L 94 L 01/24/20 03:34 100 01/23/20 23:16 97.9 F 114 H 14 88/54 L 100 Weight Weight 78.925 kg I&O: 01/22/20 01/23/20 01/24/20 06:59 06:59 06:59 Intake Total 3667 970 1975 Output Total [address] [facility] -6966 -8684 -2485 Result Diagrams: 01/24/20 04:08 01/24/20 04:08 Phys Exam - Physical Examination Constitutional: NAD Neck: supple, full ROM Respiratory: clear to auscultation bilateral Cardiovascular: RRR, no significant murmur Neurological: non-focal, moves all 4 limbs Psychiatric: normal affect, A&O x 3 Skin: no rash Dx/Plan - Plan Plan: This is a 34yo F who presented for SOB on exertion, orthopnea, b/l LE edema, and central CP, found to have new-onset CHF. SOB 2/2 new onset HF -BNP 1284, 1004 -EKG showed new RBBB -Echo: EF 35-40% with global hypokinesia -strict I/Os, daily weights -Lasix 20mg PO daily -Cardiology consult (): start valsartan, atorvastatin, coreg * Plan is to ultimately be on entresto * Cath today results: 3 vessel disease involving the mid LAD with 80-90%. Small vessels. -CV surgery (Lexx) consulted 01/22: aggressive medical management with possible CABG in the future Chest pain likely 2/2 demand ischemia -s/p ASA and Th Lovenox in ED -trop 0.179, 0.157, 0.156 -lipids, phos wnl Type 1 DM -A1c 10.9 -BGs elevated since admission. PT self-administers 10-12u per meal based on carb counting. -Increase am Lantus to 20u. Will continue to adjust insulin regimen as needed -Allow patient to administer with meal insulin based on carbs, SSI prn -Recommend f/u with manager business Normocytic anemia -Hgb 10.3, 10.4, 11 -iron low, % sat low, TIBC normal, ferritin normal, B12 low, folate normal - concerning for Fe def anemia -Started Fe supplementation. Recommend outpt workup for underlying cause Prolonged QTc -QTc 698 on admission -avoid use of medications that prolong QT interval -continuous cardiac monitoring Hypothyroid -TSH elevated, 9.9 -according to patient, her medication was just increased less than 4 weeks ago for this reason -outpatient follow up and management Depression -Continue home meds Tachycardia, resolved -Hold propanolol -Continue coreg prescribed by cards Elevated liver enzymes, resolved Hypomagnesemia, resolved Dispo: Discharge pending cardiology recommendations. DVT ppx: SCDs Fluids: KVO Diet: HH PCP- [facility] call Code: FULL
[2020-01-24 05:40] LABS: Band 19 % (5-11); Eosinophils 1 % (0-10); Hemoglobin 10.6 g/dL (12.0-16.0); Lymphocytes 24 % (21-51); MDiff Complete? YES; Mean Corpuscular HGB CONC 30.6 g/dL (32.0-36.0); Mean Corpuscular Hemoglobin 26.1 pg (27.0-31.0); Mean Corpuscular Volume 85.4 fL (78.0-98.0); Mean Platelet Volume 8.7 fL (7.4-10.4); Monocytes 6 % (0-10); Neutrophil 50 % (42-75); Platelet Count 377 thou/uL (130-400); Platelet Morphology Comment Appears Adequate; RBC Distribution Width 13.8 % (11.5-14.5); Red Blood Cell (RBC) Count 4.05 mill/uL (4.20-5.40); White Blood Cell (WBC) Count 12.2 thou/uL (4.8-10.8)
[2020-01-24] MEDS: HumaLOG 300 UNITS/3 ML VIAL SC PRN ×2 (06:11→21:18)
[2020-01-24] MEDS ORDERED: Insulin Glargine 20 UNITS in Pre-Filled Syringe 1 EACH SC SCH (09:00)
[2020-01-24] MEDS: Carvedilol 3.125 MG TAB PO SCH ×2 (09:23→16:23)
[2020-01-24] MEDS: Aspirin 81 mg Enteric Coated Tablet PO SCH (09:23)
[2020-01-24] MEDS: Thyroid 60 MG TAB PO SCH (09:24)
[2020-01-24] MEDS: Furosemide 20 MG TAB PO SCH (09:24)
[2020-01-24] MEDS: Venlafaxine HCl 37.5 MG TAB PO SCH (09:25)
[2020-01-24] MEDS: Valsartan 80 MG TAB PO SCH (09:25)
--- NOTE | 2020-01-24 13:45 | PRG ---
DATE OF SERVICE: 01/24/2020 I have discussed the case with Dr. Mayen, and agree with her assessment and plan. Ms. Vargas was found yesterday during cardiac catheterization to have triple-vessel disease with very small arteries. The cardiovascular surgeon feels that a trial of medical therapy is indicated. We are awaiting final input from the Cardiology Service, but is likely she will be attempted first on medical therapy before consideration possibly given a CABG. In the event, she is having no chest pain. She has lost 10 pounds in the last several days and is breathing much easier. We are maximizing her medical therapy to include beta blockers and MERCEDEZ/ARBs as well as aspirin and atorvastatin. Job ID: [id number]
--- NOTE | 2020-01-24 15:21 | PDOC.CPN ---
- Subjective Date: 01/24/20 Time: 12:15 Interval history: No over night events, she is doing well after her cardiac catheterization yesterday. Her BP remians low, she states she is feeling a little fatigued. She denies chest pain or shortness of breath or edema today. Her heart rate remains elevated 100's-120's. - Review of Systems General: reports: fatigue Respiratory: denies: cough, congestion, shortness of breath, exercise i ntolerance Cardiovascular: denies: chest pain, palpitation, edema, paroxysmal nocturnal dyspnea, orthopnea Gastrointestinal: denies: nausea, vomiting, diarrhea, constipation, abd pain, GI bleeding Musculoskeletal: denies: pain, tenderness, stiffness, swelling, arthritis/arthralgias Neurological: denies: numbness, syncope, seizure, weakness - Objective Allergies/Adverse Reactions: Allergies Allergy/AdvReac Type Severity Reaction Status Date / Time clarithromycin [From Biaxin] Allergy Verified 01/19/20 23:52 iodine Allergy Verified 01/19/20 23:52 meperidine [From Demerol] Allergy Verified 01/19/20 23:52 Visit Medications: Current Medications Acetaminophen (Acetaminophen 325 Mg Tab) 650 mg PO Q4H PRN PRN Reason: Headache/Fever/Mild Pain (1-3) Last Admin: 01/21/20 16:43 Dose: 650 mg Documented by: Acetaminophen/Codeine Phosphate (Acetaminophen/Codeine 30-300mg Tablet) 1 tab PO Q4H PRN PRN Reason: Mild Pain (1-3) Acetaminophen/Codeine Phosphate (Acetaminophen/Codeine 30-300mg Tablet) 2 tab PO Q4H PRN PRN Reason: Moderate Pain (4-6) Aspirin (Aspirin 81 Mg Enteric Coated Tablet) 81 mg PO DAILY [facility] Last Admin: 01/24/20 09:23 Dose: 81 mg Documented by: Atorvastatin Calcium (Atorvastatin Calcium 40 Mg Tab) 80 mg PO HS [facility] Last Admin: 01/23/20 20:54 Dose: 80 mg Documented by: Calcium Carbonate (Calcium Carbonate 500 Mg Chewtab) 1,000 mg PO Q4H PRN PRN Reason: Heartburn or Indigestion Carvedilol (Carvedilol 3.125 Mg Tab) 3.125 mg PO BID-[facility] Last Admin: 01/24/20 09:23 Dose: 3.125 mg Documented by: Dextrose/Water (Dextrose 50% Abboject 50 Ml Syringe) 25 gm SLOW IVP PRN PRN PRN Reason: Hypoglycemia Ferrous Sulfate (Ferrous Sulfate 325 Mg Tab) 325 mg PO Q2DAYS [facility] Last Admin: 01/23/20 17:23 Dose: 325 mg Documented by: Furosemide (Furosemide 20 Mg Tab) 20 mg PO DAILY [facility] Last Admin: 01/24/20 09:24 Dose: 20 mg Documented by: Glucagon (Glucagon 1 Mg/Ml Vial) 1 mg IM PRN PRN PRN Reason: Hypoglycemia Dextrose/Water (D5w) 1,000 mls @ 0 mls/hr IV .Q0M PRN PRN Reason: Hypoglycemia Insulin Glargine 20 units/ (Miscellaneous Medication) 0.2 mls @ 0 mls/hr SC QAM [facility] Last Admin: 01/24/20 09:24 Dose: 0.2 mls Documented by: Insulin Human Lispro (Humalog 300 Units/3 Ml Vial) 0 units SC .MODERATE SLIDING SC PRN PRN Reason: Moderate Correctional Scale Last Admin: 01/24/20 06:11 Dose: 10 unit Documented by: Ivabradine (Ivabradine 5 Mg Tab) 2.5 mg PO BID [facility] Nitroglycerin (Nitroglycerin 0.4 Mg Tab (25 Tab Bottle)) 0.4 mg SL Q5MIN PRN PRN Reason: Chest Pain Senna/Docusate Sodium (Senokot S 8.6-50 Mg Tab) 2 tab PO BID PRN PRN Reason: Constipation Sodium Chloride (Flush - Normal Saline 10 Ml Syringe) 10 ml IVF PRN PRN PRN Reason: Saline Flush Last Admin: 01/22/20 09:45 Dose: 10 ml Documented by: Thyroid (Thyroid 60 Mg Tab) 120 mg PO DAILY [facility] Last Admin: 01/24/20 09:24 Dose: 120 mg Documented by: Valsartan (Valsartan 80 Mg Tab) 40 mg PO DAILY [facility] Last Admin: 01/24/20 09:25 Dose: 40 mg Documented by: Venlafaxine HCl (Venlafaxine Hcl 37.5 Mg Tab) 37.5 mg PO DAILY [facility] Last Admin: 01/24/20 09:25 Dose: 37.5 mg Documented by: Vital Signs & Weight: Vital Signs Temp Pulse Resp BP BP Pulse Ox 01/24/20 11:11 98.2 F 117 H 18 96/66 98 01/24/20 07:45 98.6 F 112 H 18 92/64 98 01/24/20 04:54 98.5 F 110 H 14 96/54 L 94 L 01/24/20 03:34 100 Weight 178 lb - Quality Measures Condition: Heart Failure CV meds: Beta Josue: Yes, MERCEDEZ/ARB: Yes, Statin: Yes, ASA: Yes - Medication Contraindications No Anticoagulant reason: Treatment not indicated - Physical Exam General: alert & oriented x3, appears well, no apparent distress HEENT: mucus membranes moist Neck: supple neck, no JVD/HJR, no masses, no bruit Cardiac: no murmur, regular rate, tachycardia Lungs: clear to auscultation, normal breath sounds, normal exam, no wheeze, rales, rhonchi Neuro: grossly intact, motor function intact, sensory function intact Abdomen: active bowel sounds, soft, non-tender Extremities: no cyanosis, no clubbing, no edema, 2+ Posterior Tibial, 2+ Dorsalis Pedus Skin: clear Musculoskeletal: normal range of motion, no pain, no fluid collection - Labs Result Diagrams: 01/24/20 04:08 01/24/20 04:08 Troponin/CKMB Troponin I 0.156 ng/mL (< 0.028) H 01/20/20 02:25 - EKG Interpretation EKG Method: Telemetry EKG: sinus rhythm EKG shows: tachycardia - Assessment/Plan Assessment/Plan: 1. New onset congestive heart failure: She denies any chest pain or shortness of breath overnight, her BLE edema has resolved, she continues to diuresis large amounts of fluid. Her heart rate remains elevated in the 100's-120's per telemetry records. Will add low-dose Corlanor to try and decrease heart rate. 2. Coronary artery disease: [facility] yesterday indicated 3 vessel disease involving the mid LAD with 80-90% stenosis and small vessels. Dr. Hallman was consulted to see if further intervention was indicated. It was decided that will continue with aggressive medical management at this time, a CABG may be recommended in the future. Patient on Aspirin, Lipitor, Coreg, and Valsartan. Will add low-dose Spironolactone when BP more controlled. Discussed this plan in detail with patient. 3. Diabetes mellitus type 1: to be treated by primary service 4. Hypothyroidism: treated by primary care service 5. Depression: continue current medications, treated by primary care services. pt. seen and eval. by me. I agree with the a/P by the [employer]. Will stop valsartan and start Entresto. Add plavix. fifi
[2020-01-24] MEDS: Acetaminophen 325 MG TAB PO PRN (16:23)
[2020-01-24] MEDS: Ivabradine 5 MG TAB PO SCH (21:17)
[2020-01-24] MEDS: Atorvastatin Calcium 40 MG TAB PO SCH (21:17)
[2020-01-25 04:45] LABS: ALT (SGPT) 34 U/L (8-55); AST (SGOT) 27 U/L (5-34); Albumin 3.2 g/dL (3.5-5.0); Alkaline Phosphatase 93 U/L (40-110); Anion Gap 14 mmol/L (10-20); BUN (Urea Nitrogen) 20 mg/dL (7.0-18.7); Bilirubin, Total 0.3 mg/dL (0.2-1.2); Calc. Creatinine Clearance 102 mL/min (70-130); Calcium 8.6 mg/dL (7.8-10.44); Carbon Dioxide 25 mmol/L (22-29); Chloride 96 mmol/L (98-107); Globulin 3.2 g/dL (2.4-3.5); Glucose 355 mg/dL (70-105); Potassium 4.7 mmol/L (3.5-5.1); Protein, Total 6.4 g/dL (6.0-8.3); Sodium 130 mmol/L (136-145)
[2020-01-25 05:17] LABS: Eosinophils 3 % (0-10); Hypochromia SLIGHT = 6-15 cells (100X) (0-5/hpf); Lymphocytes 28 % (21-51); MDiff Complete? YES; Mean Corpuscular HGB CONC 31.4 g/dL (32.0-36.0); Mean Corpuscular Hemoglobin 26.9 pg (27.0-31.0); Mean Corpuscular Volume 85.7 fL (78.0-98.0); Mean Platelet Volume 8.5 fL (7.4-10.4); Monocytes 5 % (0-10); Neutrophil 64 % (42-75); Platelet Count 381 thou/uL (130-400); Platelet Morphology Comment Appears Adequate; RBC Distribution Width 13.8 % (11.5-14.5); Red Blood Cell (RBC) Count 4.07 mill/uL (4.20-5.40); White Blood Cell (WBC) Count 6.5 thou/uL (4.8-10.8)
--- NOTE | 2020-01-25 05:55 | PDOC.FM ---
- Subjective Subjective: Ms. Vargas is doing well today and has a good understanding of what Dr. Wharton' plan is. She is agreeable to changing her thyroid medication to Synthroid although she says she has been on it before but that it caused her blisters. It is possible this was a reaction to some component in the pill but not the hormone itself. She is willing to try again. She is agreeable to Fe supplementation with outpt f/u to find the underlying cause. She is agreeable to the gradual increase in insulin, to f/u with her PCP for this manner, and to f/u with an solid state tester. She has no complaints currently and is eager to go home. - Objective Vital Signs & Weight: Vital Signs (12 hours) Temp Pulse Resp BP Pulse Ox 01/25/20 03:33 98.4 F 99 16 97/53 L 93 L 01/24/20 20:00 98.6 F 114 H 16 92/62 99 Weight Weight 80.739 kg I&O: 01/23/20 01/24/20 01/25/20 06:59 06:59 06:59 Intake Total 970 1975 1040 Output Total 1999 9550 1950 Balance -1030 -2475 -910 Result Diagrams: 01/25/20 04:11 01/25/20 04:11 Phys Exam - Physical Examination Constitutional: NAD Neck: supple, full ROM Neurological: non-focal, moves all 4 limbs Psychiatric: normal affect, A&O x 3 Skin: no rash Dx/Plan - Plan Plan: This is a 34yo F who presented for SOB on exertion, orthopnea, b/l LE edema, and central CP, found to have new-onset CHF. SOB 2/2 new onset HF -EKG showed new RBBB -Echo: EF 35-40% with global hypokinesia -strict I/Os, daily weights -Lasix 20mg PO daily -Cath results: 3 vessel disease involving the mid LAD with 80-90%. Small vessels. -CV surgery (Lexx) consulted 01/22: aggressive medical management with possible CABG in the future -Cardiology consult (Akiko): atorvastatin, coreg, nitro prn, ivabradine, entresto, plavix; stop valsartan Chest pain likely 2/2 demand ischemia -s/p ASA and Th Lovenox in ED -trop 0.179, 0.157, 0.156 -lipids, phos wnl -nitro prn per cardiology Type 1 DM -A1c 10.9 -BGs elevated since admission. PT self-administers 10-12u per meal based on carb counting. -Increase am Lantus to 23u. Will continue to adjust insulin regimen as needed -Recommend f/u with solid state tester Tachycardia -Home propanolol initially held when tachycardia resolved. -Following cards recs for management: Continue coreg + start Ivabradine -Continue to monitor Normocytic anemia -Hgb 10.3, 10.4, 11 -iron low, % sat low, TIBC normal, ferritin normal, B12 low, folate normal - concerning for Fe def anemia -Started Fe supplementation. Recommend outpt workup for underlying cause Prolonged QTc -QTc 698 on admission -avoid use of medications that prolong QT interval -continuous cardiac monitoring Hypothyroid -TSH elevated, 9.9 -according to patient, her medication was just increased less than 4 weeks ago for this reason * switching from [place] Thyroid to Synthroid for better control -outpatient follow up and management Depression -Continue home meds Elevated liver enzymes, resolved Hypomagnesemia, resolved Dispo: Continue to work on stabilizing HR and BGs. Discharge pending cardiology recommendations. DVT ppx: SCDs Fluids: KVO Diet: HH PCP- [facility] call Code: FULL
[2020-01-25] MEDS ORDERED: Levothyroxine 175 MCG TAB PO SCH (06:00)
[2020-01-25] MEDS: HumaLOG 300 UNITS/3 ML VIAL SC PRN (06:21)
[2020-01-25] MEDS ORDERED: Clopidogrel Bisulfate 75 MG TAB PO SCH (09:00)
[2020-01-25] MEDS ORDERED: Insulin Glargine 23 UNITS in Pre-Filled Syringe 1 EACH SC SCH (09:00)
[2020-01-25] MEDS: Aspirin 81 mg Enteric Coated Tablet PO SCH (09:50)
[2020-01-25] MEDS: Venlafaxine HCl 37.5 MG TAB PO SCH (09:51)
[2020-01-25] MEDS: Furosemide 20 MG TAB PO SCH (09:51)
[2020-01-25] MEDS: Carvedilol 3.125 MG TAB PO SCH ×2 (09:51→18:25)
[2020-01-25] MEDS: Ivabradine 5 MG TAB PO SCH ×2 (09:52→18:26)
[2020-01-25 11:22] VITALS: TEMP 98
--- NOTE | 2020-01-25 12:41 | PDOC.CPN ---
- Subjective Date: 01/25/20 Time: 12:10 Interval history: No overnight events, HR did decrease into the 90's, but still in the low 100's this morning since starting Corlanor yesterday. She states she had a great night, she denies chest pain, dizziness, weakness, fatigue, or shortness of breath. - Review of Systems General: denies: fever/chills, weight/appetite/sleep changes, night sweats, fatigue Respiratory: denies: cough, congestion, shortness of breath, exercise intolerance Cardiovascular: denies: chest pain, palpitation, edema, paroxysmal nocturnal dyspnea, orthopnea Gastrointestinal: denies: nausea, vomiting, diarrhea, constipation, abd pain, GI bleeding Musculoskeletal: denies: pain, tenderness, stiffness, swelling, arthritis/arthralgias Neurological: denies: numbness, syncope, seizure, weakness - Objective Allergies/Adverse Reactions: Allergies Allergy/AdvReac Type Severity Reaction Status Date / Time clarithromycin [From Biaxin] Allergy Verified 01/19/20 23:52 iodine Allergy Verified 01/19/20 23:52 meperidine [From Demerol] Allergy Verified 01/19/20 23:52 Visit Medications: Current Medications Acetaminophen (Acetaminophen 325 Mg Tab) 650 mg PO Q4H PRN PRN Reason: Headache/Fever/Mild Pain (1-3) Last Admin: 01/24/20 16:23 Dose: 650 mg Documented by: Acetaminophen/Codeine Phosphate (Acetaminophen/Codeine 30-300mg Tablet) 1 tab PO Q4H PRN PRN Reason: Mild Pain (1-3) Acetaminophen/Codeine Phosphate (Acetaminophen/Codeine 30-300mg Tablet) 2 tab PO Q4H PRN PRN Reason: Moderate Pain (4-6) Aspirin (Aspirin 81 Mg Enteric Coated Tablet) 81 mg PO DAILY [facility] Last Admin: 01/25/20 09:50 Dose: 81 mg Documented by: Atorvastatin Calcium (Atorvastatin Calcium 40 Mg Tab) 80 mg PO [facility] Last Admin: 01/24/20 21:17 Dose: 80 mg Documented by: Calcium Carbonate (Calcium Carbonate 500 Mg Chewtab) 1,000 mg PO Q4H PRN PRN Reason: Heartburn or Indigestion Carvedilol (Carvedilol 3.125 Mg Tab) 3.125 mg PO BID-[facility] Last Admin: 01/25/20 09:51 Dose: 3.125 mg Documented by: Clopidogrel Bisulfate (Clopidogrel Bisulfate 75 Mg Tab) 75 mg PO DAILY [facility] Last Admin: 01/25/20 09:51 Dose: 75 mg Documented by: Dextrose/Water (Dextrose 50% Abboject 50 Ml Syringe) 25 gm SLOW IVP PRN PRN PRN Reason: Hypoglycemia Ferrous Sulfate (Ferrous Sulfate 325 Mg Tab) 325 mg PO Q2DAYS [facility] Last Admin: 01/23/20 17:23 Dose: 325 mg Documented by: Furosemide (Furosemide 20 Mg Tab) 20 mg PO DAILY [facility] Last Admin: 01/25/20 09:51 Dose: 20 mg Documented by: Glucagon (Glucagon 1 Mg/Ml Vial) 1 mg IM PRN PRN PRN Reason: Hypoglycemia Dextrose/Water (D5w) 1,000 mls @ 0 mls/hr IV .Q0M PRN PRN Reason: Hypoglycemia Insulin Glargine 23 units/ (Miscellaneous Medication) 0.23 mls @ 0 mls/hr SC QAM [facility] Last Admin: 01/25/20 09:51 Dose: 0.23 mls Documented by: Insulin Human Lispro (Humalog 300 Units/3 Ml Vial) 0 units SC .MODERATE SLIDING SC PRN PRN Reason: Moderate Correctional Scale Last Admin: 01/25/20 06:21 Dose: 10 unit Documented by: Ivabradine (Ivabradine 5 Mg Tab) 2.5 mg PO BID [facility] Last Admin: 01/25/20 09:52 Dose: 2.5 mg Documented by: Levothyroxine Sodium (Levothyroxine Sodium 75 Mcg Tab) 75 mcg PO 0600 [facility] Nitroglycerin (Nitroglycerin 0.4 Mg Tab (25 Tab Bottle)) 0.4 mg SL Q5MIN PRN PRN Reason: Chest Pain Sacubitril/Valsartan (Sacubitril 24mg/Valsartan 26mg Tab) 1 tab PO BID [facility] Last Admin: 01/25/20 09:51 Dose: 1 tab Documented by: Senna/Docusate Sodium (Senokot S 8.6-50 Mg Tab) 2 tab PO BID PRN PRN Reason: Constipation Sodium Chloride (Flush - Normal Saline 10 Ml Syringe) 10 ml IVF PRN PRN PRN Reason: Saline Flush Last Admin: 01/22/20 09:45 Dose: 10 ml Documented by: Venlafaxine HCl (Venlafaxine Hcl 37.5 Mg Tab) 37.5 mg PO DAILY [facility] Last Admin: 01/25/20 09:51 Dose: 37.5 mg Documented by: Vital Signs & Weight: Vital Signs Temp Pulse Resp BP BP BP Pulse Ox 01/25/20 11:21 98.0 F 102 H 16 102/68 97 01/25/20 09:49 102/64 01/25/20 07:33 97.9 F 109 H 18 96/58 L 97 01/25/20 03:33 98.4 F 99 16 97/53 L 93 L Weight 176 lb 3.2 oz - Quality Measures Condition: Heart Failure CV meds: Beta Josue: Yes, MERCEDEZ/ARB: Yes, Statin: Yes, ASA: Yes, Ant vix/Effient/Brilinta: Yes - Medication Contraindications No Anticoagulant reason: Treatment not indicated - Physical Exam General: alert & oriented x3, appears well, no apparent distress HEENT: mucus membranes moist Neck: supple neck, no JVD/HJR, no masses, no bruit Cardiac: no murmur, regular rate, tachycardia Lungs: clear to auscultation, normal breath sounds, normal exam, no wheeze, rales, rhonchi Neuro: grossly intact, motor function intact, sensory function intact Abdomen: soft, non-tender, no masses Extremities: no cyanosis, no clubbing, no edema, 2+ Posterior Tibial, 2+ Dorsalis Pedus Skin: clear, other (tegaderm with gauze to right groin from [facility] incision site, healing well, no erythema, edema, oozing, hematoma noted. No tenderness to palpation) Musculoskeletal: normal range of motion, no pain, no fluid collection - Labs Result Diagrams: 01/25/20 04:11 01/25/20 04:11 Troponin/CKMB Troponin I 0.156 ng/mL (< 0.028) H 01/20/20 02:25 - EKG Interpretation EKG Method: Telemetry EKG: sinus rhythm EKG shows: tachycardia - Assessment/Plan Assessment/Plan: 1. New onset congestive heart failure: She denies any chest pain or shortness of breath overnight, her BLE edema has resolved, she continues to diurese large amounts of fluid. Her heart rate remains elevated in the 90-100's per telemetry records. Added low-dose Corlanor to try and decrease heart rate, we can increase this as an outpatient if HR remains elevated. 2. Coronary artery disease: [facility] indicated 3 vessel disease involving the mid LAD with 80-90% stenosis and small vessels. Dr. Hallman was consulted to see if further intervention was indicated. It was decided that will continue with aggressive medical management at this time, a CABG may be recommended in the future. Patient on Aspirin, Lipitor, Coreg, Entresto & Plavix. Will continue to hold off on starting Spironolactone d/t elevated potassium, blood glucose and hypotension. Will re-evaluate this at her hospital follow-up appointment in office with cardiology. Discussed this plan in detail with patient. Will need repeat ECHO in three months as outpatient to evaluate ejection fraction. 3. Diabetes mellitus type 1: to be treated by primary service 4. Hypothyroidism: treated by primary care service 5. Depression: continue current medications, treated by primary care services. Patient stable for discharge from Cardiology standpoint. Follow-up with Dr. Lindy lowe in 2 weeks in office. Pt. seen and eval.by me.I agree with the A/P by the PADDED PRODUCTS INSPECTOR TRIMMER. Chest clear. RRR.No edema.Home today.F/U in 2weeks. fifi
--- NOTE | 2020-01-25 13:24 | PRG ---
DATE OF SERVICE: 01/25/2020 Ms. Vargas is awake, alert, in no distress. She is nearing time for discharge. Our cardiology has added ivabradine for rate control. They have also recently transitioned her to Entresto. These medications will be continued to be titrated as an outpatient as well as her Synthroid. She was given careful instructions this morning regarding followup for medication dosage adjustments. This also included new instructions for her use of insulin including Lantus and Humalog, along with our recommendation that she see an fertilizing machine operator to have a consideration for a pump. Job ID: [id number]
[2020-01-25 16:14] VITALS: BP 102/56
[2020-01-25] MEDS: Ferrous Sulfate 325 MG TAB PO SCH (18:25)
[2020-01-25] MEDS: Atorvastatin Calcium 40 MG TAB PO SCH (18:26)
[2020-01-26] MEDS ORDERED: Levothyroxine Sodium 75 MCG TAB PO SCH (06:00)
--- NOTE | 2020-01-27 13:47 | PQF ---
CLINICAL DOCUMENTATION CLARIFICATION FORM: Dear : Ricardo Arias MD Date / Time: 01/27/2020 Please exercise your independent, professional judgment in responding to the clarification form. Clinical indicators are provided on the bottom of this form for your review Please check appropriate box(es): HEART FAILURE: A. ACUITY [ ] Acute [ ] Acute on Chronic [ ] Chronic B. TYPE: [ ] Systolic / HFrEF [ ] Diastolic / HFpEF [ ] Combined Systolic / Diastolic [ ] Hypertensive Heart and Kidney disease [ ] Hypertensive Heart Disease [ ] Hypertensive Kidney Disease [ ] Other diagnosis (Please specify if any) [ ] Unable to determine In addition, please specify: Present on Admission (POA): [ ] Yes [ ] No [ ] Unable to determine Physician Signature: Date/Time: For continuity of documentation, please document condition throughout progress notes and discharge summary. Thank You. To be completed by CDI/Coding staff for physician review: Present Clinical Indicators - Signs / Symptoms / Labs Results and Location in Medical Record [ x ] Ejection Fraction = 35*40 % Cardiology PN on 01/20 [ x ] Decreased cardiac systolic function Consult on 01/22 [ x ] Peripheral edema H&P on 01/18 [ x ] Elevated BNP 1004.9 Laboratory on 01/19 [ ] JVD [ x ] SOB 2/2 new onset HF H&P on 01/18 [ ] Pleural effusion / pulmonary edema [ ] CXR results [ x ] Episode of sinus tachycardia Cardiology PN on 01/22 Present Risk Factors Results and Location in Medical Record [ x ] History of CAD/ischemic heart disease Cardiology PN on 01/23 [ ] CKD Hypertension [ ] History of PR Present Treatments Results and Location in Medical Record [ ] Administration of MERCEDEZ / ARB / BB [ ] Cardiac monitoring / telemetry/ECHO [ x ] Lasix 40mg IV Medication on 01/19 [ x ] Lasix 20mg IV Medication on 01/19,01/30 [ ] AICD [ ] Cardiology Consult CDS/External Relations Director Signature: AAS Phone #: Date/Time: 01/27/2020 This is a permanent part of the Medical Record [facility]
--- NOTE | 2020-01-27 14:03 | PQF ---
CLINICAL DOCUMENTATION CLARIFICATION FORM: Dear : Ricardo Arias MD Date / Time: 01/27/2020 Please exercise your independent, professional judgment in responding to the clarification form. Clinical indicators are provided on the bottom of this form for your review Please check appropriate box(es): AMI TYPE: [ ] Type 1 NE (STEMI) (please also specify site and artery see below) SITE: [ ] Anterior [ ] Apical [ ] Lateral [ ] Inferior [ ] Posterior [ ] Q Wave [ ] Septal [ ] Unable to Determine SPECIFIC ARTERY (Based on site) [ ] Left Main Coronary [ ] Diagonal [ ] Left Anterior Descending [ ] Oblique Marginal [ ] Right Coronary Artery [ ] Left Circumflex [ ] Unable to Determine [ ] Type 1 NE (NSTEMI) [ ] Type 2 NE (T2MI) secondary to: [ ] hypertension [ ] arrhythmia [ ] Infection [ ] severe anemia [ ] ischemic stroke [ ] renal failure [ ] heart failure [ ] other [ ] Type 3 NE (sudden without cardiac biomarker and/or with evidence of NE by autopsy) [ ] Type 4-5 NE (NE with PCI/PCI stent thrombosis, PCI re-stenosis or CABG related NE) [ ] Myocardial Infarction with no obstructive coronary atherosclerosis (MINOCA) (MINOCA is a classification independent from the UDMI and includes patients with Type I & Type 2 NE) [ ] Other: [ ] Takotsubo syndrome [ ] Other diagnosis (Please specify if any) [ ] Unable to determine In addition, please specify: Present on Admission (POA): [ ] Yes [ ] No [ ] Unable to determine Physician Signature: Date/Time: For continuity of documentation, please document condition throughout progress notes and discharge summary. Thank You To be completed by CDI/Coding staff for physician review: Present Clinical Indicators - Signs / Symptoms / Labs Results and Location in Medical Record [x] Elevated biomarkers (CK-MB, Troponin T or I) Troponin 0.159 Laboratory on 01/18 [x] EKG changes (ST Elevation, Non ST Elevation, Q waves, new LBB) New RBBB, prolonged QTC H&P on 01/18 [x] Abnormal Echocardiogram Echo on 01/19 [x] Diagnosis: primary - NSTEMI ED provider report on 01/18 [ x ] Chest pain liikely 2/2 demand ischemia Family medicine PN on 01/19 Present Risk Factors Results and Location in Medical Record [ ] Hypertension [x] Coronary Artery Disease Cardiology PN on 01/23 [ ] High Cholesterol/Lipids [x] History of Diabetes H&P on 01/18 [ ] History of NE Present Treatments Results and Location in Medical Record [ x] Heart cath laborer cheesemaking on 01/18 [ x] Heparin 1,000 units Medication on 01/22 [ x] Nitroglycerin 100mg/250 ml Medication on 01/22 [ ] Oxygen [ ] Vasodilators [ ] Continuous cardiac monitoring [ x] Cardiac consult Consult on 01/22 CDS/Fitness Management Director Signature: AAS Phone #: Date/Time: 01/27/2020 This is a permanent part of the Medical Record [facility]
--- NOTE | 2020-01-28 04:13 | DIS ---
DATE OF ADMISSION: 01/19/2020 DATE OF DISCHARGE: 01/25/2020 RESIDENT: Deborah Mayen MD ADMITTING ATTENDING: Dr. Macie Flynn. DISCHARGE ATTENDING: Ricardo Soler MD CONSULTS: 1. Cardiology, Dr. Wharton, 01/19. 2. Cardiovascular Surgery, Dr. Hallman, 01/22. 3. Cardiac Rehab, 01/22. PROCEDURES: 1. Echocardiogram (01/19). 2. Heart catheterization (01/22). PRIMARY DIAGNOSES: New onset heart failure, coronary artery disease. SECONDARY DIAGNOSES: Elevated liver enzymes, anemia, prolonged QTc, hypomagnesemia, type 1 diabetes, hypothyroidism, tachycardia, and depression. DISCHARGE MEDICATIONS: 1. Ferrous sulfate 325 mg p.o. every other day. 2. Atorvastatin 80 mg p.o. daily. 3. Carvedilol 3.125 mg p.o. b.i.d. 4. Aspirin 81 mg p.o. daily. 5. Lasix 20 mg p.o. daily. 6. Ivabradine 2.5 mg p.o. b.i.d. 7. Entresto 24-26, one tab p.o. b.i.d. 8. Lantus SoloStar 23 units subcu q.a.m. 9. Plavix 75 mg p.o. daily. 10. Synthroid 75 mcg p.o. q.a.m. 11. Effexor 37.5 mg p.o. daily. DISCONTINUED MEDICATIONS: 1. Propranolol 80 mg p.o. at bedtime. 2. [place] Thyroid 120 mg p.o. daily. HISTORY OF PRESENT ILLNESS/HOSPITAL COURSE: This is a 34-year-old female, who presented with shortness of breath and chest pain on exertion for the past 2-3 weeks. She describes the pain as an elephant sitting on the center of her chest and had associated dizziness, headache, a clammy feeling. This episode resolved with rest and were happening nearly every time she had exerted herself over the past 2-3 weeks, but were getting worse. She also developed bilateral lower extremity edema and orthopnea. On admission, she was found to have a BNP of 1284, as well as an EKG showing a new right bundle branch block. She was also found to have a hemoglobin of 10.3 with iron studies suggestive of iron deficiency anemia, so she was started on iron supplementation. Her TSH was elevated despite a recent increase in her thyroid medication, so she was switched from [place] Thyroid for Synthroid in order to get better thyroid level control. An echocardiogram obtained the next morning showed an EF of 35% to 40%, a mild to moderately dilated right atrium, a mildly enlarged right atrium, trace mitral regurg, mild tricuspid and pulmonic regurg. Cardiology was consulted and elected to perform a heart catheterization. It showed triple- vessel CAD with a decrease in left ventricular systolic function. The right coronary artery had a 50% to 60% stenosis, the LAD had a 70% stenosis, and circumflex artery had stenosis of all three branches ranging from 60% to 70%. The vessels were small, she has diffuse disease, she is young, and she has ongoing heart failure symptoms, so Dr. Hallman and Dr. Wharton agreed medical management would be appropriate with possibility for a CABG in the future. DISPOSITION: Stable. DISCHARGE INSTRUCTIONS: Location: Home. Diet: Diabetic diet. Activity: As tolerated. Followup: The patient is encouraged to follow up with her PCP in [place] in 7-10 days for continued management of her insulin regimen and thyroid level. TSH should be rechecked in 4 to 6 weeks after discharge given initiation of Synthroid. The patient is encouraged to follow up with Dr. Wharton within 14 days of discharge for followup of her heart failure symptoms and treatment. Job ID: [id number] MTDD
== END 2020-01-25 18:55 | disposition home or self-care (01) | DRG 287 ==
LOC: ERS 19:49 → 2NO 20:50
PROVIDERS: ADMIT Student in an Organized Health Care Education/Training Program; ATTEND Student in an Organized Health Care Education/Training Program
PROC: B2111ZZ Fluoroscopy of Multiple Coronary Arteries using Low Osmolar Contrast (ICD-10-PCS; principal; 2020-01-23)
PROC: B2151ZZ Fluoroscopy of Left Heart using Low Osmolar Contrast (ICD-10-PCS; 2020-01-23)
PROC: 4A023N7 Measurement of Cardiac Sampling and Pressure, Left Heart, Percutaneous Approach (ICD-10-PCS; 2020-01-23)
DX: I50.9 Heart failure, unspecified (principal); I47.1 Supraventricular tachycardia; I24.8 Other forms of acute ischemic heart disease; E03.9 Hypothyroidism, unspecified; F32.9 Major depressive disorder, single episode, unspecified; E10.9 Type 1 diabetes mellitus without complications; D64.9 Anemia, unspecified; R94.31 Abnormal electrocardiogram [ECG] [EKG]; E83.42 Hypomagnesemia; R79.89 Other specified abnormal findings of blood chemistry; I25.10 Atherosclerotic heart disease of native coronary artery without angina pectoris; Z20.828 Contact with and (suspected) exposure to other viral communicable diseases; Z88.1 Allergy status to other antibiotic agents; Z88.8 Allergy status to other drugs, medicaments and biological substances; Z79.899 Other long term (current) drug therapy; Z79.4 Long term (current) use of insulin; Z79.890 Hormone replacement therapy; Z87.891 Personal history of nicotine dependence
CPT/HCPCS: 36415; 36416; 80053; 80061; 80306; 82607; 82728; 82746; 83036; 83540; 83550; 83735; 83880; 84100; 84484; 85025; 93005; 93306; 93458; 94760; 96372; 97139; 99152; 99153; J1644; J1650; J1815; J1940; J2250; J3010; J3475; J7512; Q9967

== ENCOUNTER 2020-03-10 23:54 | Inpatient (IN) | payer BC ==
--- NOTE | 2020-03-11 01:01 | PDOC.HHP ---
Hospitalist bryan LOZA History of Present Illness: This is a 35-year-old female patient with a history of diabetes mellitus, victor m leonard diagnosed ischemic cardiomyopathy with multivessel disease who presents with worsening bilateral swelling of her feet and shortness of breath for the past couple of weeks. Of note she was diagnosed with new onset heart failure a little over a month ago with Echocardiogram showed an EF of 35 to 40% with global hypokinesis on 01/20/2020. Cardiac catheterization on 01/19/2020 noting three-vessel disease. Initial plan was to start with medical management for consideration of CABG sometime in the future. The EF at the time was 35 to 40% with global hypokinesia. After discharge she did follow-up with her care management coordinator Dr. Wharton who is [place] increased her Lasix however for the past couple of weeks she has been having worsening increased weight, shortness of breath, orthopnea and easy fatigabili ty. She also notes no chest pain however has been having intermittent cough which is mostly dry. She presented to medicine for she was noted on presentation to have BP of 111/64, respiratory rate 20, tachycardic at 111, temperature 98.0 and saturating 99% on room air. Labs showed anemia of 8.1 from a baseline of 11.0 a little of a month ago. WBC was 8.1 and platelets 346. Chemistry showed sodium of 129, potassium 5.4, bicarb 19 creatinine 1.14, A1c 10.9, BNP 8418 from thousand and 444 weeks ago. Troponin was elevated at 0.15 around baseline. Urine toxicology was negative and urinalysis showed no suggestion of UTI. Chest x-ray showed increased interstitial lung markings with stable cardiomegaly. She received doxycycline and Rocephin to cover for possible sepsis on account of elevated lactate. Also received 20 mg IV push Lasix and 3 to 4 mg aspirin prior to transfer to here for further placement. On presentation no further intervention was done. Hospitalist team was consulted for admission. Allergies/Adverse Reactions: Allergy/AdvReac Type Severity Reaction Status Date / Time clarithromycin [From Biaxin] Allergy Verified 03/11/20 02:31 iodine Allergy Verified 03/11/20 02:31 meperidine [From Demerol] Allergy Verified 03/11/20 02:31 Home Medications: Medication Instructions Recorded Confirmed Type Venlafaxine HCl [Effexor] 37.5 mg PO DAILY 01/20/20 03/11/20 History Aspirin [Ecotrin Low Strength] 81 mg PO DAILY #30 tab 01/24/20 03/11/20 Rx Atorvastatin Calcium 80 mg PO DAILY #30 tablet 01/24/20 03/11/20 Rx Carvedilol [Coreg] 3.125 mg PO BID-WM #60 tab 01/24/20 03/11/20 Rx Ferrous Sulfate [Feosol] 325 mg PO Q2DAYS #15 tab 01/24/20 03/11/20 Rx Clopidogrel Bisulfate [Plavix] 75 mg PO DAILY #30 tab 01/25/20 03/11/20 Rx Insulin Glargine,Hum.Rec.Anlog 23 unit SC QAM #5 pen 01/25/20 03/11/20 Rx [Lantus Solostar] Ivabradine [Corlanor] 2.5 mg PO BID #30 tab 01/25/20 03/11/20 Rx Levothyroxine Sodium [Synthroid] 75 mcg PO 0600 #45 tab 01/25/20 03/11/20 Rx Sacubitril/Valsartan [Entresto 24 1 tab PO BID #60 tab 01/25/20 03/11/20 Rx mg-26 mg Tablet] Furosemide [Lasix] 20 mg PO BID 03/11/20 03/11/20 History Past History: PMHx: PSHx: FHx: Social: Hospitalist HPI ROS Constitutional: reports: weakness. denies: fever, chills, sweats Respiratory: reports: cough, dry, shortness of breath, SOB with excertion. denies: hemoptysis Cardiovascular: denies: chest pain, palpitations, orthopnea, paroxysmal noc. dyspnea Gastrointestinal: denies: nausea, vomiting, abdominal pain Musculoskeletal: denies: neck pain, shoulder pain, arm pain Neurological: denies: weakness, incoordination All other systems reviewed; all pertinent +/- noted in HPI/Subj Hospitalist Exam General Appearance: awake alert ENT: normocephalic atraumatic Neck: supple, symmetric, no JVD Heart: RRR, no murmur, no gallops, no rubs Respiratory: no wheezes, no rales Gastrointestinal: soft, non-tender, non-distended, normal bowel sounds Extremities: no cyanosis, no clubbing, 1+ LE edema Neurological: cranial nerve grossly intact, normal sensation to touch Musculoskeletal: normal tone, normal strength Psychiatric: normal affect, normal behavior, A&O x 3 Hospitalist H&P A/P Plan: 35-year-old female recently diagnosed if ischemic cardiomyopathy presenting with acute CHF exacerbation. CHF exacerbation She was diuresed gently milligrams IV Lasix prior to transfer We will continue diuresis on 40 mg Lasix twice daily given she takes 20 mg Lasix twice daily at home. Continue heart failure medications Cardiology consult in a.m. Hyperkalemia This is mild Likely to resolve with Lasix Repeat BMP in a.m. Anemia Mild worsening from previous value from 10-8.6. Possibly due to volume overload as well We will repeat BMP in a.m. Elevated troponin This appears to be at baseline We will monitor VT prophylaxisLovenox
[2020-03-11 01:31] LABS: Troponin I 0.151 ng/mL (< 0.028)
[2020-03-11 05:51] LABS: SARS-CoV-2 PCR by NAA Not Detected (NotDetected)
[2020-03-11] MEDS: Furosemide 40 MG/4 ML VIAL SLOW IVP SCH ×2 (05:56→13:59)
[2020-03-11 06:13] LABS: Hemoglobin 8.9 g/dL (12.0-16.0); Mean Corpuscular HGB CONC 30.6 g/dL (32.0-36.0); Mean Corpuscular Volume 81.6 fL (78.0-98.0); Mean Platelet Volume 9.1 fL (7.4-10.4); Platelet Count 347 thou/uL (130-400); Red Blood Cell (RBC) Count 3.55 mill/uL (4.20-5.40); White Blood Cell (WBC) Count 7.7 thou/uL (4.8-10.8)
[2020-03-11 06:19] LABS: Anion Gap 12 mmol/L (10-20); BUN (Urea Nitrogen) 20 mg/dL (7.0-18.7); Calc. Creatinine Clearance 105 mL/min (70-130); Calcium 8.4 mg/dL (7.8-10.44); Carbon Dioxide 24 mmol/L (22-29); Chloride 100 mmol/L (98-107); Glucose 263 mg/dL (70-105); Potassium 4.6 mmol/L (3.5-5.1); Sodium 131 mmol/L (136-145)
[2020-03-11 06:24] LABS: Troponin I 0.145 ng/mL (< 0.028)
[2020-03-11 06:48] LABS: Band 4 % (5-11); Elliptocytes SLIGHT = 2-5 cells (100X) (0-1/hpf); Eosinophils 12 % (0-10); Hypochromia SLIGHT = 6-15 cells (100X) (0-5/hpf); Lymphocytes 25 % (21-51); MDiff Complete? YES; Monocytes 10 % (0-10); Neutrophil 49 % (42-75)
[2020-03-11] MEDS ORDERED: FLU VACC QS2020-21(6MOS UP)/PF 60 MCG/0.5 ML SYRINGE IM ONE (09:00)
[2020-03-11] MEDS: Aspirin 81 mg Enteric Coated Tablet PO SCH (09:18)
[2020-03-11] MEDS: Clopidogrel Bisulfate 75 MG TAB PO SCH (09:18)
[2020-03-11] MEDS: Enoxaparin Sodium 40 MG/0.4 ML SYRINGE SC SCH (09:18)
[2020-03-11] MEDS: Atorvastatin Calcium 40 MG TAB PO SCH (09:18)
[2020-03-11] MEDS: Carvedilol 3.125 MG TAB PO SCH ×2 (09:18→17:31)
[2020-03-11] MEDS ORDERED: Heparin 1,000 UNITS/ML VIAL ONE (10:02)
--- NOTE | 2020-03-11 12:03 | CON ---
DATE OF CONSULTATION: 03/11/2020 REASON FOR CONSULTATION: Heart failure. PRIMARY GLOBAL CMO: Dr. Mervat Wharton. HISTORY OF PRESENT ILLNESS: Ms. Vargas is a very pleasant 35-year-old white female, who comes to the hospital for worsening shortness of breath. She was diagnosed with an ischemic cardiomyopathy about a month ago. She came to the hospital, had a heart catheterization, was found to have multivessel disease and decision was made to treat medically for now and possibly do bypass in the future. At that time, her EF was about 35% to 40%. She saw Dr. Wharton just about a week or two ago and she had her Lasix increased to 40 twice a day and she states that she has been diuresing a little bit better, but slowly reaccumulated fluid and felt more short of breath and had to come in. She already feels better. She was given IV Lasix yesterday and some this morning. She is already diuresing much better and feeling better. PAST MEDICAL HISTORY: 1. Ischemic cardiomyopathy, last EF a month ago at 35% to 40%. 2. Type 1 diabetes. 3. Hypothyroidism. 4. Depression. PAST SURGICAL HISTORY: 1. x1. 2. Left wrist surgery. 3. Heart catheterization as above. SOCIAL HISTORY: Former smoker of two packs a year, but quit many years back. No drugs. No alcohol. FAMILY HISTORY: Positive for coronary artery disease in father in his 50s and mother with stroke in her 60s. OUTPATIENT MEDICATIONS: 1. Lantus insulin 23 units subcu daily. 2. Lasix 20 mg b.i.d. 3. Ferrous sulfate 325 mg every other day. 4. Effexor. 5. Synthroid 75 mcg a day. 6. Corlanor 2.5 mg b.i.d. 7. Entresto 24/26 b.i.d. 8. Plavix 75 mg a day. 9. Coreg 3.125 b.i.d. 10. Atorvastatin 80 mg a day. 11. Aspirin 81 a day. ALLERGIES: 1. IODINE. 2. MEPERIDINE. 3. CLARITHROMYCIN. REVIEW OF SYSTEMS: A 12-point review of systems was done and was found to be negative other than stated in the history of present illness. PHYSICAL EXAMINATION: VITAL SIGNS: Temperature 98.6, pulse 100, respiratory rate 18, sat 95% on room air, blood pressure 101/57. GENERAL: Awake, alert, oriented x3. No distress. HEENT: Normocephalic, atraumatic. NECK: Supple. LUNGS: Have crackles at the bases. CARDIOVASCULAR: S1 and S2. No S3 or S4. There is a grade 2/6 systolic murmur at the right upper sternal border. ABDOMEN: Soft. Positive bowel sounds. EXTREMITIES: 1+ edema. SKIN: Warm and dry. LABORATORY DATA: Laboratory work was reviewed. White count of 7; hemoglobin of 8.9, her baseline is 11; hematocrit of 28; platelet count of 247. Chemistries were reviewed. BUN of 20, creatinine 1.02, GFR of 61. Troponin is indeterminate range of 0.15 and 0.14. COVID-19 PCR was not detected. Sodium is low at 131. ASSESSMENT/PLAN: 1. Acute on chronic systolic heart failure. 2. Ischemic cardiomyopathy, last EF at 35% to 40%. 3. Multivessel coronary artery disease. 4. Type 1 diabetes. 5. Anemia most likely of chronic disease, however, worsened since a month ago. Baseline at 11 and currently at 8.9. PLAN: 1. Continue IV diuresis. 2. Her worsening anemia may be related to either dilutional state and would get better with diuresis versus some microscopic bleeding now that she is on Plavix. Would continue diuresis first and see if this changes in any way. She is still slightly volume overload. Thank you for letting us participate in the care of your patient. Dr. Wharton, her primary creosoting engineer will follow up in the morning. Job ID: [id number]
--- NOTE | 2020-03-11 13:32 | PDOC.HOSPP ---
- Subjective Encounter Date: 03/11/20 Encounter Time: 11:00 Subjective: Feeling better, shortness of breath improved, anxious to remove n.p.o. status - Objective Vital Signs & Weight: Vital Signs (12 hours) Temp Pulse Pulse Pulse Resp BP BP 03/11/20 13:13 98.7 F 97 16 03/11/20 09:16 103 H 107 H 101/57 L 108/61 03/11/20 08:05 99.4 F 113 H 15 03/11/20 03:39 98.6 F 100 18 03/11/20 01:50 98.4 F 99 18 BP Pulse Ox Pulse Ox Pulse Ox 03/11/20 13:13 92/51 L 95 03/11/20 09:16 95 96 03/11/20 08:05 102/60 95 03/11/20 03:39 93/53 L 95 03/11/20 01:50 93/53 L 97 Weight Weight 194 lb 3.2 oz I&O: 03/10/20 03/11/20 03/12/20 06:59 06:59 06:59 Intake Total 240 Output Total 600 Balance -360 Result Diagrams: 03/11/20 05:51 03/11/20 05:51 Hospitalist ROS - Review of Systems Constitutional: denies: fever, chills, sweats, weakness, malaise, other Eyes: denies: pain, vision change, conjunctivae inflammation, eyelid inflammation, redness, other ENT: denies: ear pain, ear discharge, nose pain, nose discharge, nose congestion, mouth pain, mouth swelling, throat pain, throat swelling, other Respiratory: denies: cough, dry, shortness of breath, hemoptysis, SOB with excertion, pleuritic pain, sputum, wheezing, other Cardiovascular: denies: chest pain, palpitations, orthopnea, paroxysmal noc. dyspnea, edema, light headedness, other Gastrointestinal: denies: nausea, vomiting, abdominal pain, diarrhea, constipation, melena, hematochezia, other Musculoskeletal: denies: neck pain, shoulder pain, arm pain, back pain, hand pain, leg pain, foot pain, other Skin: denies: rash, lesions, daxa, bruising, other Neurological: denies: weakness, numbness, incoordination, change in speech, confusion, seizures, other - Medication Medications: Active Medications Generic Name Dose Route Start Last Admin Trade Name Lui PRN Reason Stop Dose Admin Aspirin 81 mg 03/11/20 09:00 03/11/20 09:18 Aspirin 81 Mg Enteric Coated Tablet PO 81 mg DAILY EDMOND Administration Atorvastatin Calcium 80 mg 03/11/20 09:00 03/11/20 09:18 Atorvastatin Calcium 40 Mg Tab PO 80 mg DAILY EDMOND Administration Carvedilol 3.125 mg 03/11/20 08:00 03/11/20 09:18 Carvedilol 3.125 Mg Tab PO 3.125 mg BID- EDMOND Administration Clopidogrel Bisulfate 75 mg 03/11/20 09:00 03/11/20 09:18 Clopidogrel Bisulfate 75 Mg Tab PO 75 mg DAILY EDMOND Administration Enoxaparin Sodium 40 mg 03/11/20 09:00 03/11/20 09:18 Enoxaparin Sodium 40 Mg/0.4 Ml Syringe SC 40 mg 0900 EDMOND Administration Furosemide 40 mg 03/11/20 06:00 03/11/20 05:56 Furosemide 40 Mg/4 Ml Vial SLOW IVP 40 mg 0600,1400 EDMOND Administration Sacubitril/Valsartan 1 tab 03/11/20 09:00 03/11/20 09:18 Sacubitril 24mg/Valsartan 26mg Tab PO 1 tab BID EDMOND Administration Hospitalist Exam Vitals: Vital Signs (12 hours) Temp Pulse Pulse Pulse Resp BP BP 03/11/20 13:13 98.7 F 97 16 03/11/20 09:16 103 H 107 H 101/57 L 108/61 03/11/20 08:05 99.4 F 113 H 15 03/11/20 03:39 98.6 F 100 18 03/11/20 01:50 98.4 F 99 18 BP Pulse Ox Pulse Ox Pulse Ox 03/11/20 13:13 92/51 L 95 03/11/20 09:16 95 96 03/11/20 08:05 102/60 95 03/11/20 03:39 93/53 L 95 03/11/20 01:50 93/53 L 97 Weight Weight 194 lb 3.2 oz General Appearance: NAD, awake alert Eye: PERRL, anicteric sclera ENT: normocephalic atraumatic, no oropharyngeal lesions Neck: supple, symmetric, no JVD Heart: RRR Respiratory: CTAB Gastrointestinal: soft, non-tender Extremities: no cyanosis, no clubbing, 2+ LE edema Neurological: no focal deficits Musculoskeletal: normal tone, normal strength Psychiatric: normal affect, normal behavior, A&O x 3 Hosp A/P - Plan 1. Acute systolic CHF exacerbation -Most recent 2D echo showed an LVEF of 40% -On IV Lasix -Continue Coreg and Entresto at home dose 2. History of three-vessel ischemic heart disease -Seen on recent cardiac catheterization. - Being managed medically -Continue Coreg, aspirin Plavix and statin 3. History of hypothyroidism -Continue levothyroxine at home dose -Check TSH 4. DVT prophylaxis -Subcu Lovenox
[2020-03-11 15:31] LABS: Anisocytosis SLIGHT = 6-15 cells (100X) (0-5/hpf); Band 21 % (5-11); Elliptocytes SLIGHT = 2-5 cells (100X) (0-1/hpf); Eosinophils 13 % (0-10); Helmet Cells SLIGHT = 2-5 cells (100X) (0-1/hpf); Hemoglobin 9.3 g/dL (12.0-16.0); Hypochromia SLIGHT = 6-15 cells (100X) (0-5/hpf); Lymphocytes 23 % (21-51); MDiff Complete? YES; Mean Corpuscular HGB CONC 32.1 g/dL (32.0-36.0); Mean Corpuscular Hemoglobin 26.6 pg (27.0-31.0); Mean Corpuscular Volume 82.8 fL (78.0-98.0); Mean Platelet Volume 9.3 fL (7.4-10.4); Monocytes 8 % (0-10); Neutrophil 30 % (42-75); Ovalocytes SLIGHT = 2-5 cells (100X) (0-1/hpf); Platelet Count 320 thou/uL (130-400); Platelet Morphology Comment Appears Adequate; RBC Distribution Width 16.2 % (11.5-14.5); Reactive Lymphocytes 5 % (0-10); Schistocytes SLIGHT = 2-5 cells (100X) (0-1/hpf); Target Cells SLIGHT = 2-5 cells (100X) (0-1/hpf); Tear Drops SLIGHT = 2-5 cells (100X) (0-1/hpf); White Blood Cell (WBC) Count 8.4 thou/uL (4.8-10.8)
[2020-03-11] MEDS: Calcium Carbonate 500 MG ChewTAB PO PRN (21:27)
[2020-03-11] MEDS: Ivabradine 5 MG TAB PO SCH (21:54)
[2020-03-12 05:29] LABS: Anion Gap 14 mmol/L (10-20); BUN (Urea Nitrogen) 20 mg/dL (7.0-18.7); Calc. Creatinine Clearance 101 mL/min (70-130); Carbon Dioxide 27 mmol/L (22-29); Chloride 96 mmol/L (98-107); Glucose 204 mg/dL (70-105); Potassium 5.3 mmol/L (3.5-5.1); Sodium 132 mmol/L (136-145)
[2020-03-12] MEDS: Furosemide 40 MG/4 ML VIAL SLOW IVP SCH ×2 (05:54→14:45)
[2020-03-12] MEDS ORDERED: Levothyroxine Sodium 75 MCG TAB PO SCH (06:00)
[2020-03-12] MEDS: Calcium Carbonate 500 MG ChewTAB PO PRN (08:10)
[2020-03-12 08:28] LABS: Free T4 (Free Thyroxine) 0.77 ng/dL (0.70-1.48)
[2020-03-12] MEDS: Atorvastatin Calcium 40 MG TAB PO SCH (09:21)
[2020-03-12] MEDS: Enoxaparin Sodium 40 MG/0.4 ML SYRINGE SC SCH (09:22)
[2020-03-12] MEDS: Clopidogrel Bisulfate 75 MG TAB PO SCH (09:23)
[2020-03-12] MEDS: Aspirin 81 mg Enteric Coated Tablet PO SCH (09:24)
[2020-03-12] MEDS: Carvedilol 3.125 MG TAB PO SCH (09:24)
[2020-03-12] MEDS: Venlafaxine HCl 37.5 MG TAB PO SCH (09:25)
[2020-03-12] MEDS: Ivabradine 5 MG TAB PO SCH ×2 (09:25→22:39)
[2020-03-12] MEDS ORDERED: Cosyntropin 250 MCG VIAL SLOW IVP SCH (13:00)
[2020-03-12] MEDS ORDERED: Dextrose 50% Abboject 50 ML SYRINGE SLOW IVP PRN (13:41)
[2020-03-12] MEDS ORDERED: Dextrose 5% in Water 1,000 ML IV PRN (13:41)
[2020-03-12] MEDS ORDERED: Sucralfate 1 GM/10 ML UDCUP PO PRN (13:42)
[2020-03-12 13:46] LABS: ALT (SGPT) 61 U/L (8-55); AST (SGOT) 73 U/L (5-34); Albumin 3.2 g/dL (3.5-5.0); Alkaline Phosphatase 105 U/L (40-110); Anion Gap 19 mmol/L (10-20); BUN (Urea Nitrogen) 23 mg/dL (7.0-18.7); Bilirubin, Total 0.5 mg/dL (0.2-1.2); Calc. Creatinine Clearance 95 mL/min (70-130); Calcium 9.2 mg/dL (7.8-10.44); Carbon Dioxide 22 mmol/L (22-29); Chloride 94 mmol/L (98-107); Globulin 3.2 g/dL (2.4-3.5); Glucose 235 mg/dL (70-105); Iron 23 ug/dL (50-170); Iron Binding Capacity, Total 373 mcg/dL (265-497); Magnesium 1.3 mg/dL (1.6-2.6); Potassium 4.7 mmol/L (3.5-5.1); Protein, Total 6.4 g/dL (6.0-8.3); Sodium 130 mmol/L (136-145)
[2020-03-12 13:57] LABS: Anisocytosis SLIGHT = 6-15 cells (100X) (0-5/hpf); Band 17 % (5-11); Elliptocytes SLIGHT = 2-5 cells (100X) (0-1/hpf); Eosinophils 8 % (0-10); Helmet Cells SLIGHT = 2-5 cells (100X) (0-1/hpf); Hemoglobin 8.7 g/dL (12.0-16.0); Hypochromia SLIGHT = 6-15 cells (100X) (0-5/hpf); Lymphocytes 17 % (21-51); MDiff Complete? YES; Mean Corpuscular HGB CONC 30.2 g/dL (32.0-36.0); Mean Corpuscular Hemoglobin 24.7 pg (27.0-31.0); Mean Corpuscular Volume 81.6 fL (78.0-98.0); Mean Platelet Volume 9.8 fL (7.4-10.4); Monocytes 7 % (0-10); Neutrophil 45 % (42-75); Platelet Count 331 thou/uL (130-400); Platelet Morphology Comment Appears Adequate; Polychromasia SLIGHT = 2-3 cells (100X) (0-2/hpf); RBC Distribution Width 16.2 % (11.5-14.5); Reactive Lymphocytes 6 % (0-10); Red Blood Cell (RBC) Count 3.52 mill/uL (4.20-5.40); Schistocytes MODERATE= 6-15 cells (100X) (0-1/hpf); Target Cells SLIGHT = 2-5 cells (100X) (0-1/hpf); Tear Drops SLIGHT = 2-5 cells (100X) (0-1/hpf); White Blood Cell (WBC) Count 8.4 thou/uL (4.8-10.8)
[2020-03-12] MEDS ORDERED: Magnesium 2 GM/50 ML 2 GM in Premix Bag 1 BAG IVPB SCH (14:45)
--- NOTE | 2020-03-12 15:43 | PDOC.HOSPP ---
- Subjective Encounter Date: 03/12/20 Encounter Time: 15:37 Subjective: Ms. Vargas was seen today in follow-up of CHF exacerbation. She says she feels better. She is breathing better, and denies any chest pain. - Objective Vital Signs & Weight: Vital Signs (12 hours) Temp Pulse Pulse Pulse Resp BP BP 03/12/20 12:54 99 F 105 H 16 03/12/20 11:39 107 H 103 H 84/56 L 97/56 L 03/12/20 07:50 99.5 F 108 H 14 03/12/20 04:10 105 H 14 BP Pulse Ox 03/12/20 12:54 97/56 L 95 03/12/20 11:39 03/12/20 07:50 94/52 L 98 03/12/20 04:10 98/60 92 L Weight Weight 187 lb 9.6 oz I&O: 03/11/20 03/12/20 03/13/20 06:59 06:59 06:59 Intake Total 720 240 Output Total 1800 Balance -1080 240 Result Diagrams: 03/12/20 13:02 03/12/20 13:02 Hospitalist ROS - Medication Medications: Active Medications Generic Name Dose Route Start Last Admin Trade Name Freq PRN Reason Stop Dose Admin Aspirin 81 mg 03/11/20 09:00 03/12/20 09:24 Aspirin 81 Mg Enteric Coated Tablet PO 81 mg DAILY EDMOND Administration Atorvastatin Calcium 80 mg 03/11/20 09:00 03/12/20 09:21 Atorvastatin Calcium 40 Mg Tab PO 80 mg DAILY EDMOND Administration Calcium Carbonate 1,000 mg 03/11/20 19:36 03/12/20 08:10 Calcium Carbonate 500 Mg Chewtab PO 1,000 mg Q4H PRN Administration Heartburn or Indigestion Clopidogrel Bisulfate 75 mg 03/11/20 09:00 03/12/20 09:23 Clopidogrel Bisulfate 75 Mg Tab PO 75 mg DAILY EDMOND Administration Cosyntropin 250 mcg 03/12/20 13:00 03/12/20 13:16 Cosyntropin 250 Mcg Vial SLOW IVP 250 mcg WILLCALL EDMOND Administration Enoxaparin Sodium 40 mg 03/11/20 09:00 03/12/20 09:22 Enoxaparin Sodium 40 Mg/0.4 Ml Syringe SC 40 mg 09 EDMOND Administration Furosemide 40 mg 03/11/20 06:00 03/12/20 14:45 Furosemide 40 Mg/4 Ml Vial SLOW IVP 40 mg 0600,1400 EDMOND Administration Magnesium Sulfate 2 gm/ Device 50 mls @ 50 mls/hr 03/12/20 14:45 03/12/20 15:34 IVPB 03/12/20 16:45 50 mls NOW EDMOND Administration Ivabradine 2.5 mg 03/11/20 21:00 03/12/20 09:25 Ivabradine 5 Mg Tab PO Not Given BID EDMOND Sucralfate 1 gm 03/12/20 13:42 03/12/20 14:44 Sucralfate 1 Gm/10 Ml Udcup PO 1 gm Q6H PRN Administration Dyspepsia Venlafaxine HCl 37.5 mg 03/12/20 09:00 03/12/20 09:25 Venlafaxine Hcl 37.5 Mg Tab PO Not Given DAILY [facility] Hospitalist Exam Vitals: Vital Signs (12 hours) Temp Pulse Pulse Pulse Resp BP BP 03/12/20 12:54 99 F 105 H 16 03/12/20 11:39 107 H 103 H 84/56 L 97/56 L 03/12/20 07:50 99.5 F 108 H 14 03/12/20 04:10 105 H 14 BP Pulse Ox 03/12/20 12:54 97/56 L 95 03/12/20 11:39 03/12/20 07:50 94/52 L 98 03/12/20 04:10 98/60 92 L Weight Weight 187 lb 9.6 oz General Appearance: NAD, awake alert Heart: RRR, murmur present, II/IV (+ S3 and S4 gallop) Respiratory: CTAB, no wheezes, no rales, no ronchi, normal chest expansion, no tachypnea, normal percussion Gastrointestinal: soft, non-tender, non-distended, normal bowel sounds, no palpable masses, no hepatomegaly Extremities: no cyanosis, 1+ LE edema Hosp A/P (1) Acute on chronic combined systolic (congestive) and diastolic (congestive) heart failure Code(s): I50.43 - ACUTE ON CHRONIC COMBINED SYSTOLIC AND DIASTOLIC HRT FAIL Status: Acute (2) CAD (coronary artery disease) Code(s): I25.10 - ATHSCL HEART DISEASE OF [place] CORONARY ARTERY W/O ANG PCTRS Status: Acute (3) Diabetes mellitus type 1 Status: Acute (4) Hypothyroidism Code(s): E03.9 - HYPOTHYROIDISM, UNSPECIFIED Status: Chronic (5) Hyponatremia Code(s): E87.1 - HYPO-OSMOLALITY AND HYPONATREMIA Status: Acute (6) Hypomagnesemia Code(s): E83.42 - HYPOMAGNESEMIA Status: Acute - Plan * Acute on chronic systolic and diastolic heart failure- discussed with Dr. Painting. This this may notbe entirely due Ischemic heart disease * DM- will re-start her home insulin, and give a low dose of Lantus now * Hypothyroidism- she does not appear to be adequately replaced. Her TSH should be mildly supressed with treatment, and her free T3 is low. Agree with increase in Synthroid dose, and will add Cytomel * Hyponatremia- this may be due to Adrenal Insufficiency- Cotrosyn Stem test is pending * Hypotension- possible due to low cortisol level- work-up in progress * CAD- as above- she may need evaluation for re-vascularization * Due to her young age and uncertainty of whether revascularization will improve her symptoms-Transfer to [facility] has been recommended
[2020-03-12] MEDS ORDERED: Fludrocortisone Acetate 0.1 MG TAB PO SCH (17:15)
[2020-03-12] MEDS: HumaLOG 300 UNITS/3 ML VIAL SC PRN ×3 (17:46→23:05)
--- NOTE | 2020-03-12 17:57 | EKG ---
Test Reason : Blood Pressure : / mmHG Vent. Rate : 098 BPM Atrial Rate : 098 BPM P-R Int : 192 ms QRS Dur : 148 ms QT Int : 408 ms P-R-T Axes : 047 129 062 degrees QTc Int : 520 ms Normal sinus rhythm Right bundle branch block Left axis deviation Lateral infarct , age undetermined Abnormal ECG Lateral infarct is now Present QT has shortened Confirmed by DR. Travon CASANOVA ([id number]) on 03/12/2020 5:56:59 PM Referred By: MARGARET Confirmed By:DR. Travon CASANOVA
[2020-03-12] MEDS ORDERED: Insulin Glargine 10 UNITS in Pre-Filled Syringe 1 EACH SC SCH (18:30)
[2020-03-12] MEDS ORDERED: Milrinone Lactate/D5W 20 MG in Premix Bag 1 BAG IVPB SCH (21:00)
[2020-03-12] MEDS: Hydrocortisone 10 mg Tablet PO SCH (22:38)
[2020-03-13] MEDS: Levothyroxine Sodium 100 MCG TAB PO SCH (05:24)
[2020-03-13] MEDS: HumaLOG 300 UNITS/3 ML VIAL SC PRN ×2 (05:30→12:04)
--- NOTE | 2020-03-13 07:11 | CON ---
DATE OF CONSULTATION: 03/12/2020 REASON FOR CONSULT: Management of acute on chronic heart failure. HISTORY OF PRESENT ILLNESS: Ms. Macie Vargas, 35-year-old lady with a known heart failure with reduced ejection fraction, was admitted for heart failure exacerbation. Ms. Vargas had tachycardia for several years. She said that one time her heart rate went up as high as 200s and it was giving her headache. She was treated with propranolol. She did well for a while. Then about January last year, she became very short of breath. She also became very fatigued. At one point, she can barely walk from her car to her office at work. At that point, she came in for help. She was found to have a low ejection fraction around 35% and also triple-vessel coronary artery disease. At that time, due to her young age, diffuse nature of coronary artery disease and small targets, it was decided that to treat this medically. She was discharged on good oral regimen of carvedilol, Entresto, and furosemide. She also received aspirin, Plavix, and atorvastatin. Ms. Vargas said that she did not improve upon returning home. She felt chronically fatigue. In fact, the fatigue worsened. The shortness of breath did not [place]. Shortness of breath worsened. Now she only can walk about 100 feet. She no longer can sleep in bed. She sleeps in a recliner with head elevated about 45 degrees. She cannot lay down. She also noticed that she has increasing edema about her abdomen and her legs. She was taking furosemide 20 mg twice a day. Furosemide was increased to 40 mg twice a day. Even at increased dose of furosemide 40 mg twice a day, she was not getting enough relief. She became more and more short of breath and feeling more and more edematous. She says that she weighs herself at home. Since discharge, she has gained 20 pounds in water weight. Thus, she came in for help. She was first seen at [facility]. She was transferred to [facility]. PAST MEDICAL HISTORY: 1. Heart failure with reduced ejection fraction with a right ventricular dysfunction, EF at about 35% as of January 2020. 2. Coronary artery disease with catheterization done in January 2020. This consisted about 80% stenosis at left anterior descending, however, there is a 2nd stenosis and the distal vessel is small. She also has about 60% stenosis in proximal left circumflex. She also has a long stenosis in the proximal right coronary roughly about 60%. 3. Hypothyroidism since age 11. 4. Type 1 diabetes since age 11. 5. Likely hyperlipidemia. 6. She said that she had been diagnosed with duodenal ulcer. She had nausea, abdominal pain, and then this was treated with sucralfate. She did not ever receive antibiotics for duodenal ulcer. SOCIAL HISTORY: 1. She only smoked for 5 years on a social basis. She stopped smoking altogether in 2018. 2. She does not use alcohol. 3. She denies any illicit drug use. 4. She currently lives at her house. Her mother who had a stroke with weakness on the left side lives with her. She also has a 17-year-old daughter at home. However, she says she has very supportive family members. If needed, somebody can stay with her every day for 6 weeks. She also said that she can move in with her father in [place]. FAMILY HISTORY: 1. Her father is still alive at age 64. He had myocardial infarction in late 50s with received stents twice. 2. Her mother is still alive, she is the one with a stroke at age 63. Her siblings are healthy. REVIEW OF SYSTEMS: GENERAL: There is no fever, chills, or productive cough. However, she has chronic fatigue that is progressive. HEENT: There is no change in vision, hearing, or swallowing. PULMONARY: Please see HPI. CARDIAC: Please see HPI. However, she denies chest pains or syncope. GI: She claimed to have been diagnosed with duodenal ulcer. She does have abdominal pain and nausea, which is relieved by sucralfate. : She can urinate at home without any problem. MUSCULOSKELETAL: There are no complaints of muscle joint pains. INTEGUMENT: There is no new skin breakdown. NEUROLOGIC: There are no new focal deficits or weaknesses. PSYCHIATRIC: She is not depressed but is concerned about her status. ALLERGIES: CLARITHROMYCIN, IODINE, AND ALSO MEPERIDINE. CURRENT MEDICATIONS: 1. Aspirin 81 mg daily. 2. Atorvastatin 80 mg at bedtime. 3. Clopidogrel 75 mg daily. 4. Enoxaparin 40 mg at nighttime. 5. Furosemide 40 mg IV twice a day. 6. Ivabradine 2.5 mg b.i.d. 7. Carvedilol 3.125 mg b.i.d. 8. Entresto 24/26 combination twice a day. 9. Venlafaxine/Effexor 37.5 mg daily. PHYSICAL EXAMINATION: VITAL SIGNS: Heart rate 105, blood pressure 97/56. This is her better one. She has systolic blood pressure ranging from 90-97. Her O2 saturation is about 95%. GENERAL: She is alert and conversational, pleasant. However, she is mildly short of breath. HEENT: Show EOMI. Oropharynx is benign with moist mucosa. NECK: Her JVP is elevated about 13 cm with positive hepatojugular reflux. PULMONARY: There is good air movement bilaterally. There are no crackles bilaterally. CARDIAC: Tachycardic, normal S1, S2. However, there is an S3 gallop present. There is also 2/6 holosystolic murmur at the left upper sternal border corresponding to tricuspid regurgitation. ABDOMEN: Soft, nontender, mildly distended. She said that she feels bloated. EXTREMITIES: She has about 0.5 cm pitting edema from her feet to 2/[address] way toward her knee. LABORATORY VALUES: Sodium 132, potassium 5.3, chloride 96, BUN 20, bicarb 27, creatinine 1.02, and glucose of 204. Her TSH is elevated at 12.0867. PROCEDURE: Echocardiogram was done at bedside, I reviewed at bedside. 1. Her left ventricular inner diameter is 5.7 cm. Says she has dilated cardiomyopathy. 2. Her LVEF IS 20%. 3. There is septal bounce motion to suggest dyssynchrony 4. There is mild mitral regurgitation. 5. She also has grade 3 diastolic dysfunction with restrictive filling pattern. Her e' prime is 0.07 m/sec. Her E to e' prime ratio well over 20. Thus she has severe diastolic dysfunction. 5. Her right ventricle is moderately dilated with reduced function. There is also D shaped septum. 6. She has externally dilated right atrium. It appears to be larger chamber in her heart. he has moderate tricuspid regurgitation with tricuspid pressure gradient about 38, that is from an echocardiogram, 7. She also has dilated left atrium. 8, Thus, she has dilated cardiomyopathy with biventricular dysfunction. ASSESSMENT: 35-year-old lady has worsening heart failure with reduced ejection fraction. Her ejection fraction decreased from 35% down to 20% despite correct heart failure medications. She also has a right ventricular dysfunction, likely was RV failure given the large size of right atrium. Thus she has biventricular failure. She does have significant coronary artery disease. However, this amount of cardiomyopathy is out of proportion to her coronary artery disease. She has hypothyroidism that is insufficiently treated. This can contribute to her cardiomyopathy. Her low sodium, high potassium, low blood pressure would suggest that she have adrenal insufficiency. This also needs to be examined. Her complaints of abdominal pain and nausea with a low hemoglobin between 8.9 and 9.3; this suggests that she may have active duodenal ulcer; this also needs to be checked. Please see the following for my recommendations. RECOMMENDATIONS: 1. Please do Cortrosyn stimulation test with measurement of cortisol at baseline and then follow with Cortrosyn 250 mcg followed by measurements of cortisol at 30 minutes and 60 minutes later. 2. Increase Synthroid to 100 mcg daily. 3. Discontinue carvedilol. 4. Start Toprol-XL 12.5 mg p.o. q.12 hours. This is to control her heart rate but yet with less blood pressure effect. 5. Discontinue Entresto for now. This may be too much of vasodilation for her given her low blood pressure. 6. Please do ECG now. She might have a left bundle branch block with wide QRS that would qualify her for biventricular pacing. 7. Please do CBC, iron studies, TIBC and ferritin to check for iron-deficiency anemia as a sign of duodenal ulcer bleed. 8. Please transfuse to keep her hemoglobin above 9 because that would help her heart condition and her blood pressure. 9. Please provide a proton pump inhibitor. 10. Please consider transfer her to [facility]. She will need a center that can fully evaluate her to decide between the high risk coronary artery bypass versus heart transplant. With amount of her cardiac dysfunction, a bypass at this point, may not reverse her heart condition. Rather bypass, at this point in time, may worsen her overall being and make her unavailable for more advanced therapy. Thus a center that is capable of both will need to evaluate her for bypass versus heart transplant. Left ventricular assistive device is also possible option that would give her a longer span of life. However, she does have a right ventricular dysfunction already. So this will be also high-risk. Thus, it is best to transfer to a center that can evaluate for all of these possibilities. It has been a pleasure taking care of Ms. Vargas. If any questions, please give me a call. Total visitation time is 90 minutes. Job ID: [id number] [id number]
[2020-03-13] MEDS: Furosemide 40 MG/4 ML VIAL SLOW IVP SCH ×2 (07:19→15:14)
--- NOTE | 2020-03-13 08:15 | PDOC.HOSPP ---
- Subjective Encounter Date: 03/13/20 Encounter Time: 08:15 Subjective: Ms. Vargas is being followed for CHF exacerbation. She said that her main complaint at this point was nauseau and bubbly regurgitation after eating this morning. She said that she ate in concurrance with her insulin that was given at 6am. She stated that her heart was racing last night and this morning and that she had difficulty breathing. She attributed the difficulty of breathing to her Lasics being stopped. She stated that she also had difficulty sleeping. - Objective Vital Signs & Weight: Vital Signs (12 hours) Temp Pulse Resp BP Pulse Ox 03/13/20 03:40 98.2 F 96 14 90/74 94 L Weight Weight 84.8 kg Her BP was checked twice: 88/53 and 90/53. HR 101. I&O: 03/12/20 03/13/20 03/14/20 06:59 06:59 06:59 Intake Total 720 1800 Output Total 1800 1050 Balance -1080 750 Result Diagrams: 03/12/20 13:02 03/12/20 13:02 Additional Labs: Accuchecks 03/13/20 03/12/20 03/12/20 05:27 21:03 17:09 POC Glucose 378 H 452 H 358 H Hospitalist ROS - Review of Systems Respiratory: reports: shortness of breath Cardiovascular: reports: palpitations Gastrointestinal: reports: nausea, abdominal pain. denies: vomiting Other: Difficulty sleeping. All other systems reviewed; all pertinent +/- noted in HPI/Subj - Medication Medications: Active Medications Generic Name Dose Route Start Last Admin Trade Name Freq PRN Reason Stop Dose Admin Aspirin 81 mg 03/11/20 09:00 03/12/20 09:24 Aspirin 81 Mg Enteric Coated Tablet PO 81 mg DAILY EDMOND Administration Atorvastatin Calcium 80 mg 03/11/20 09:00 03/12/20 09:21 Atorvastatin Calcium 40 Mg Tab PO 80 mg DAILY EDMOND Administration Calcium Carbonate 1,000 mg 03/11/20 19:36 03/12/20 08:10 Calcium Carbonate 500 Mg Chewtab PO 1,000 mg Q4H PRN Administration Heartburn or Indigestion Clopidogrel Bisulfate 75 mg 03/11/20 09:00 03/12/20 09:23 Clopidogrel Bisulfate 75 Mg Tab PO 75 mg DAILY EDMOND Administration Cosyntropin 250 mcg 03/12/20 13:00 03/12/20 13:16 Cosyntropin 250 Mcg Vial SLOW IVP 250 mcg WILLCALL EDMOND Administration Enoxaparin Sodium 40 mg 03/11/20 09:00 03/12/20 09:22 Enoxaparin Sodium 40 Mg/0.4 Ml Syringe SC 40 mg 0900 EDMOND Administration Furosemide 40 mg 03/11/20 06:00 03/13/20 07:19 Furosemide 40 Mg/4 Ml Vial SLOW IVP Not Given 0600,1400 [facility] Hydrocortisone 5 mg 03/12/20 21:00 03/12/20 22:38 Hydrocortisone 10 Mg Tablet PO 5 mg QPM EDMOND Administration Milrinone Lactate/Dextrose 20 100 mls @ 3.191 mls/hr 03/12/20 21:00 03/12/20 22:42 mg/ Device IVPB 100 mls INF EDMOND Administration 0.125 MCG/KG/MIN Insulin Human Lispro 0 units 03/12/20 13:41 03/13/20 05:30 Humalog 300 Units/3 Ml Vial SC 10 unit .MODERATE SLIDING SC PRN Administration Moderate Correctional Scale Insulin Human Lispro 0 units 03/12/20 13:41 03/12/20 23:05 Humalog 300 Units/3 Ml Vial SC 5 unit .BEDTIME SLIDING SC PRN Administration Bedtime Correctional Scale Ivabradine 2.5 mg 03/11/20 21:00 03/12/20 22:39 Ivabradine 5 Mg Tab PO Not Given BID EDMOND Levothyroxine Sodium 100 mcg 03/13/20 06:00 03/13/20 05:24 Levothyroxine Sodium 100 Mcg Tab PO 100 mcg 0600 EDMOND Administration Metoprolol Succinate 12.5 mg 03/12/20 21:00 03/12/20 22:40 Metoprolol Succinate Xl 25 Mg Tab PO 12.5 mg Q12HR EDMOND Administration Sodium Chloride 10 ml 03/12/20 21:00 03/12/20 22:41 Flush - Normal Saline 10 Ml Syringe IVF 10 ml Q12HR EDMOND Administration Sucralfate 1 gm 03/12/20 13:42 03/12/20 14:44 Sucralfate 1 Gm/10 Ml Udcup PO 1 gm Q6H PRN Administration Dyspepsia Venlafaxine HCl 37.5 mg 03/12/20 09:00 03/12/20 09:25 Venlafaxine Hcl 37.5 Mg Tab PO Not Given DAILY EDMOND Hospitalist Exam Vitals: Vital Signs (12 hours) Temp Pulse Resp BP Pulse Ox 03/13/20 03:40 98.2 F 96 14 90/74 94 L Weight Weight 84.8 kg Hosp A/P (1) Acute on chronic combined systolic (congestive) and diastolic (congestive) heart failure Code(s): I50.43 - ACUTE ON CHRONIC COMBINED SYSTOLIC AND DIASTOLIC HRT FAIL Status: Acute (2) Hyponatremia Code(s): E87.1 - HYPO-OSMOLALITY AND HYPONATREMIA Status: Acute A/P - Problem (1) Acute on chronic combined systolic (congestive) and diastolic (congestive) heart failure Current Visit: Yes Code(s): I50.43 - ACUTE ON CHRONIC COMBINED SYSTOLIC AND DIASTOLIC HRT FAIL Status: Acute (2) Hyponatremia Current Visit: Yes Code(s): E87.1 - HYPO-OSMOLALITY AND HYPONATREMIA Status: Acute - Plan Plan: Heart Failure: Her Entresto was switched to Milrinone. This was lowering her BP too much. Dr. Painting is now switing her to Dobutamine. She will need to be monitored for increased HR on dobutamine. Dr. Painting discussed potential of PICC line placement with Alicia. Hyponatremia: Stop hydrocortisone and change to flucortisone. FMR OB H&P: Physical Exam - Physical Exam HEENT: normocephalic and atraumatic, grossly normal vision Neck: supple, other ( Dr. Painting stated that JVP was 13 cm (seen near the angle of the mandible)) Heart: other (S3 gallop was hepatojugular reflex was noted. 0.5 cm pitting edema was noted from ankle to knee.)
[2020-03-13] MEDS ORDERED: Insulin Glargine 23 UNITS in Pre-Filled Syringe 1 EACH SC SCH (09:00)
[2020-03-13] MEDS ORDERED: Non-Formulary Item 1 EACH (Insulin Glargine,Hum.Rec.Anlog [Lantus Solostar] 100 UNIT/ML P SC SCH (09:00)
[2020-03-13] MEDS: Aspirin 81 mg Enteric Coated Tablet PO SCH (09:11)
[2020-03-13] MEDS: Hydrocortisone 10 mg Tablet PO SCH ×2 (09:11→21:31)
[2020-03-13] MEDS: Atorvastatin Calcium 40 MG TAB PO SCH (09:11)
[2020-03-13] MEDS: Liothyronine Sodium 5 MCG TAB PO SCH (09:11)
[2020-03-13] MEDS: Clopidogrel Bisulfate 75 MG TAB PO SCH (09:11)
[2020-03-13] MEDS: Fludrocortisone Acetate 0.1 MG TAB PO SCH (09:11)
[2020-03-13] MEDS: Enoxaparin Sodium 40 MG/0.4 ML SYRINGE SC SCH (09:11)
[2020-03-13] MEDS: Ivabradine 5 MG TAB PO SCH ×2 (09:11→21:30)
[2020-03-13] MEDS: Venlafaxine HCl 37.5 MG TAB PO SCH (09:12)
[2020-03-13] MEDS ORDERED: DOBUTamine 500 mg/250 ml 250 ML IVPB SCH (09:15)
[2020-03-13 09:32] LABS: Anion Gap 14 mmol/L (10-20); BUN (Urea Nitrogen) 25 mg/dL (7.0-18.7); Calc. Creatinine Clearance 95 mL/min (70-130); Calcium 9.1 mg/dL (7.8-10.44); Carbon Dioxide 29 mmol/L (22-29); Chloride 91 mmol/L (98-107); Glucose 341 mg/dL (70-105); Hemoglobin 8.5 g/dL (12.0-16.0); Magnesium 1.7 mg/dL (1.6-2.6); Mean Corpuscular HGB CONC 30.6 g/dL (32.0-36.0); Mean Corpuscular Hemoglobin 24.8 pg (27.0-31.0); Mean Corpuscular Volume 80.8 fL (78.0-98.0); Mean Platelet Volume 9.6 fL (7.4-10.4); Platelet Count 328 thou/uL (130-400); Potassium 4.1 mmol/L (3.5-5.1); RBC Distribution Width 16.2 % (11.5-14.5); Red Blood Cell (RBC) Count 3.43 mill/uL (4.20-5.40); Sodium 130 mmol/L (136-145); White Blood Cell (WBC) Count 10.2 thou/uL (4.8-10.8)
[2020-03-13 11:05] LABS: Band 12 % (5-11); Eosinophils 6 % (0-10); Lymphocytes 26 % (21-51); MDiff Complete? YES; Monocytes 6 % (0-10); Neutrophil 50 % (42-75); Nucleated RBC 1 % (0); Platelet Morphology Comment Appears Adequate; Polychromasia SLIGHT = 2-3 cells (100X) (0-2/hpf); Schistocytes SLIGHT = 2-5 cells (100X) (0-1/hpf)
[2020-03-13] MEDS ORDERED: Insulin Glargine 15 UNITS in Pre-Filled Syringe 1 EACH SC SCH (11:36)
--- NOTE | 2020-03-13 12:00 | PDOC.HOSPP ---
- Subjective Encounter Date: 03/13/20 Encounter Time: 11:58 Subjective: Ms. Vargas was seen today in follow-up of CHF exacerbation. She says she still get a bit tired with her breathing when she talks. She also notes some continued abdominal pain and cramping off and on. - Objective Vital Signs & Weight: Vital Signs (12 hours) Temp Pulse Pulse Pulse Resp BP BP 03/13/20 08:41 102 H 103 H 110/56 L 95/57 L 03/13/20 08:00 03/13/20 07:00 98.2 F 112 H 16 03/13/20 03:40 98.2 F 96 14 BP Pulse Ox Pulse Ox Pulse Ox 03/13/20 08:41 100 100 03/13/20 08:00 96 03/13/20 07:00 93/59 L 96 03/13/20 03:40 90/74 94 L Weight Weight 186 lb 15.232 oz I&O: 03/12/20 03/13/20 03/14/20 06:59 06:59 06:59 Intake Total 720 1800 Output Total 1800 1050 Balance -1080 750 Result Diagrams: 03/13/20 08:43 03/13/20 08:43 Additional Labs: Accuchecks 03/13/20 03/13/20 03/12/20 10:50 05:27 21:03 POC Glucose 369 H 378 H 452 H 03/12/20 17:09 POC Glucose 358 H Hospitalist ROS - Medication Medications: Active Medications Generic Name Dose Route Start Last Admin Trade Name Freq PRN Reason Stop Dose Admin Aspirin 81 mg 03/11/20 09:00 03/13/20 09:11 Aspirin 81 Mg Enteric Coated Tablet PO 81 mg DAILY EDMOND Administration Atorvastatin Calcium 80 mg 03/11/20 09:00 03/13/20 09:11 Atorvastatin Calcium 40 Mg Tab PO 80 mg DAILY EDMOND Administration Calcium Carbonate 1,000 mg 03/11/20 19:36 03/12/20 08:10 Calcium Carbonate 500 Mg Chewtab PO 1,000 mg Q4H PRN Administration Heartburn or Indigestion Clopidogrel Bisulfate 75 mg 03/11/20 09:00 03/13/20 09:11 Clopidogrel Bisulfate 75 Mg Tab PO 75 mg DAILY EDMOND Administration Cosyntropin 250 mcg 03/12/20 13:00 03/12/20 13:16 Cosyntropin 250 Mcg Vial SLOW IVP 250 mcg WILLCALL EDMOND Administration Enoxaparin Sodium 40 mg 03/11/20 09:00 03/13/20 09:11 Enoxaparin Sodium 40 Mg/0.4 Ml Syringe SC 40 mg 0900 EDMOND Administration Fludrocortisone Acetate 0.1 mg 03/13/20 09:00 03/13/20 09:11 Fludrocortisone Acetate 0.1 Mg Tab PO 0.1 mg DAILY EDMOND Administration Furosemide 40 mg 03/11/20 06:00 03/13/20 07:19 Furosemide 40 Mg/4 Ml Vial SLOW IVP Not Given 0600,1400 [facility] Hydrocortisone 10 mg 03/13/20 09:00 03/13/20 09:11 Hydrocortisone 10 Mg Tablet PO 10 mg QAM EDMOND Administration Hydrocortisone 5 mg 03/12/20 21:00 03/12/20 22:38 Hydrocortisone 10 Mg Tablet PO 5 mg QPM EDMOND Administration Dobutamine HCl/Dextrose 250 mls @ 12.72 mls/hr 03/13/20 09:15 03/13/20 10:56 Dobutamine 500 Mg/250 Ml IVPB 250 mls INF EDMOND Administration 5 MCG/KG/MIN Insulin Human Lispro 0 units 03/12/20 13:41 03/13/20 05:30 Humalog 300 Units/3 Ml Vial SC 10 unit .MODERATE SLIDING SC PRN Administration Moderate Correctional Scale Insulin Human Lispro 0 units 03/12/20 13:41 03/12/20 23:05 Humalog 300 Units/3 Ml Vial SC 5 unit .BEDTIME SLIDING SC PRN Administration Bedtime Correctional Scale Ivabradine 2.5 mg 03/11/20 21:00 03/13/20 09:11 Ivabradine 5 Mg Tab PO Not Given BID [facility] Levothyroxine Sodium 100 mcg 03/13/20 06:00 03/13/20 05:24 Levothyroxine Sodium 100 Mcg Tab PO 100 mcg 0600 EDMOND Administration Liothyronine Sodium 5 mcg 03/13/20 09:00 03/13/20 09:11 Liothyronine Sodium 5 Mcg Tab PO 5 mcg DAILY EDMOND Administration Metoprolol Succinate 12.5 mg 03/12/20 21:00 03/13/20 09:32 Metoprolol Succinate Xl 25 Mg Tab PO Not Given Q12HR [facility] Pantoprazole Sodium 40 mg 03/13/20 09:00 03/13/20 09:12 Pantoprazole 40 Mg Tab PO 40 mg DAILY EDMOND Administration Sodium Chloride 10 ml 03/12/20 21:00 03/13/20 09:12 Flush - Normal Saline 10 Ml Syringe IVF 10 ml Q12HR EDMOND Administration Sucralfate 1 gm 03/12/20 13:42 03/12/20 14:44 Sucralfate 1 Gm/10 Ml Udcup PO 1 gm Q6H PRN Administration Dyspepsia Venlafaxine HCl 37.5 mg 03/12/20 09:00 03/13/20 09:12 Venlafaxine Hcl 37.5 Mg Tab PO 37.5 mg DAILY EDMOND Administration Hospitalist Exam Vitals: Vital Signs (12 hours) Temp Pulse Pulse Pulse Resp BP BP 03/13/20 08:41 102 H 103 H 110/56 L 95/57 L 03/13/20 08:00 03/13/20 07:00 98.2 F 112 H 16 03/13/20 03:40 98.2 F 96 14 BP Pulse Ox Pulse Ox Pulse Ox 03/13/20 08:41 100 100 03/13/20 08:00 96 03/13/20 07:00 93/59 L 96 03/13/20 03:40 90/74 94 L Weight Weight 186 lb 15.232 oz General Appearance: NAD, awake alert Eye: PERRL, anicteric sclera Heart: RRR Respiratory: no wheezes, no ronchi, rales (at the bases) Gastrointestinal: soft, non-tender, non-distended, normal bowel sounds, no palpable masses, no hepatomegaly Extremities: no cyanosis, 1+ LE edema Hosp A/P (1) Acute on chronic combined systolic (congestive) and diastolic (congestive) heart failure Code(s): I50.43 - ACUTE ON CHRONIC COMBINED SYSTOLIC AND DIASTOLIC HRT FAIL Status: Acute (2) CAD (coronary artery disease) Code(s): I25.10 - ATHSCL HEART DISEASE OF [place] CORONARY ARTERY W/O ANG PCTRS Status: Acute (3) Diabetes mellitus type 1 Status: Acute (4) Hypothyroidism Code(s): E03.9 - HYPOTHYROIDISM, UNSPECIFIED Status: Chronic (5) Hyponatremia Code(s): E87.1 - HYPO-OSMOLALITY AND HYPONATREMIA Status: Acute (6) Hypomagnesemia Code(s): E83.42 - HYPOMAGNESEMIA Status: Acute - Plan * Acute on chronic systolic and diastolic heart failure- discussed with Dr. Painting. - She is currently on Milrinone, and may be transitioned to Dobutamine due to her blood pressure * DM- blood glucose has been elevated. Will adjust her insulin, and continue the SSI * Hypothyroidism-Continue Levothyroxine and Cytomel * Hyponatremia- continue to current hypothyroidism, and she has been placed on Florinef * Hypotension- continue Florinef * CAD- as above- she may need evaluation for re-vascularization * Abdominal pain and anemia- Discussed with Dr. Lambert- GI has been consulted
--- NOTE | 2020-03-13 12:50 | PRG ---
DATE OF SERVICE: 03/13/2020 HISTORY OF PRESENT ILLNESS: Ms. Vargas had a variable day today. She was found to be adrenally insufficient. Her cortisol stim test did not cause sufficient increase in cortisol level, so hydrocortisone and fludrocortisone were started last night. She also received T3 supplementation along with increased Synthroid for her hypothyroidism, that was insufficiently treated. It was hoped that these combination would help to raise her blood pressure by restoring vascular tone. However, the blood pressure remained low last night by automated cuff in the high 80s, by manual between 90 and 93. The Milrinone was started at 0.125 mcg/kg/minute to increase contractility without causing too much of vasodilation at 0.125 mcg/kg/minute. This is a low dose at this point. However, it only decreased her blood pressure. In addition, she had nausea and epigastric pain. She blames it on her ongoing ulcer and so this will need to be looked after. REVIEW OF SYSTEMS: GENERAL: There is no fever, chills, productive cough. HEENT: There is no change in vision, hearing, or swallowing. PULMONARY: She is breathing easy, but she thinks a little bit more labored this morning, it is most likely she did not get her diuretic due to the low blood pressure, so that probably increased her congestion. CARDIAC: She has her baseline palpitation heart rate about 100. GI: Please see HPI. : She is able to urinate on her own. MUSCULOSKELETAL: There is no complaint of joint pains or muscular pains. INTEGUMENT: There is no skin breakdown. NEUROLOGIC: There are no focal deficits or weaknesses. CURRENT MEDICATIONS: Include; 1. Aspirin 81 mg daily. 2. Atorvastatin 80 mg daily. 3. Plavix 75 mg daily. 4. Enoxaparin 40 mg subcutaneous once per day. 5. Fludrocortisone 0.1 mg daily. 6. Furosemide 40 mg IV b.i.d., but was not given. 7. Hydrocortisone at 10 mg in the morning and 5 mg in the afternoon. She has not received the morning dose yet. 8. She has a sliding scale insulin. 9. Her ivabradine, Corlanor was not given last night or this morning. That would also explain the slight tachycardia. 10. Synthroid 100 mcg and liothyronine 5 mcg, so this would have been equivalent of 125 mcg of Synthroid. 11. Metoprolol succinate/Toprol-XL 12.5 mg q.12 hours that was given. 12. Milrinone at 0.125 mcg/kg/minute. 13. Sucralfate 1 g p.o. q.6 hours p.r.n. 14. Effexor 37.5 mg p.o. daily. PHYSICAL EXAMINATION: Telemetry was reviewed. She is in sinus rhythm, sinus tachycardia. Average rate close to about 100. Her systolic blood pressure between 90 and 102. When we see her in her room, systolic blood pressure was 88, 2nd measurement systolic pressure of 90. Her diastolic pressure between 52 and 74. GENERAL: She is alert, conversational, reclining comfortably in bed. She does seem a little bit anxious. HEENT: Show EOMI. Oropharynx is benign with moist mucosa. NECK: Her JVP is more elevated at 13 cm today. PULMONARY: There is good air movement bilaterally. There are no crackles bilaterally. CARDIAC: Tachycardia. There is S1, S2, there is also S3 and S4. Thus, she has summation gallop that is best heard at left upper sternal border. She also has a 2/6 holosystolic murmur at the left upper sternal border, so this corresponded to tricuspid regurgitation. ABDOMEN: Soft, nontender. Positive bowel sounds. EXTREMITIES: Lower extremity has about 0.5 cm pitting edema from feet to just below the knee. LABORATORY STUDIES: There is no new labs this morning. The labs have been ordered. ASSESSMENT: 35-year-old lady has multitude of problems. She likely reside in [place] Heart Association stage D, [place] Heart Association class 3B or 4 heart failure with reduced ejection fraction. Her ejection fraction is only 20%. She also has a right ventricular failure. It is a combination of systolic and severe diastolic dysfunction. This is a cardiomyopathy that is out of proportion with the coronary artery disease. She does have three-vessel coronary artery disease. She also has insufficiently treated hypothyroidism and also adrenal insufficiency. All of these are being addressed. Right now she also has GI pains. This need to be looked at. She also has low iron, this suggests that she has likely a slow bleeding ulcer also, so this also needs to be examined. Due to her situation, a center will need to make assessment between high risk revascularization versus advanced heart failure therapy. Please see the following for my recommendations. RECOMMENDATIONS: 1. Stop Milrinone. 2. Start dobutamine at 2.5 mcg/kg/minute. 3. Place PICC. 4. Please consider to consult GI for her possible duodenal ulcer. 5. Start Protonix 40 mg p.o. daily. 6. Supplement electrolytes to make sure magnesium is above 2 and potassium is above 4. It has been a pleasure taking care of Ms. Macie Vargas. If any questions, please give me a call. The total visitation time today is 40 minutes. Job ID: [id number] MTDD
--- NOTE | 2020-03-13 15:13 | SPC ---
Exam: Leftupper extremity ultrasound guided PICC line HISTORY: TPN, IV antibiotics Exposure:1.2 minutes, 9019 mGy per centimeter square FINDINGS: Lumen: Duallumen Trim length: 46 cm Distal tip:Right atrium Catheter flushes and aspirates without difficulty TECHNIQUE: Consent obtained to perform a left upper extremity PICC line with ultrasound guidance. Le ftarm was prepped and draped in a sterile fashion. 1% lidocaine, buffered with sodium bicarbonate was used for local anesthesia. Under ultrasound guidance, micropuncture needle was used to cannulate thebasilicvein. A 0.018 guidewire was advanced through the needle to level of the superior vena cava. Under fluoroscopy, the wire was further advanced into the inferior vena cava to document venous access. Wire was subsequently pulled back to theright atrium. Dual lumen flushes and aspirates without difficulty. Patient tolerated the procedure well. No immediate or postprocedure complications IMPRESSION: Successfulleftupper surgery PICC line placement with ultrasound guidance
[2020-03-13] MEDS ORDERED: HumaLOG 300 UNITS/3 ML VIAL SC SCH (17:00)
[2020-03-13] MEDS ORDERED: HUMULIN R 100 UNITS in Sodium Chloride 0.9% 100 ML IVPB SCH (17:15)
--- NOTE | 2020-03-13 19:10 | CON ---
DATE OF CONSULTATION: 03/13/2020 CHIEF COMPLAINT: Abdominal pain. HISTORY OF PRESENT ILLNESS: Ms. Vargas is a 35-year-old woman who was admitted with decompensated congestive heart failure. She has a history of ischemic cardiomyopathy with multivessel disease. She reports a sharp epigastric pain that radiates around to her bilateral upper quadrants and also a burning epigastric pain that radiates up into her chest over the last couple months. The pain worsens after eating and she feels a liquid burning come all the way up to her throat sometimes. This gives her persistent nausea and decrease in her appetite. She saw her primary care physician regarding these symptoms and was started on sucralfate and reportedly had a serology checked for Helicobacter pylori. She has not been on a proton pump inhibitor. She has felt like the sucralfate helped more than proton pump inhibitor. Here in the hospital, she has been receiving times as needed and with that she has developed some constipation. She came in the hospital due to a 20-pound weight gain with fluid retention related to her cardiomyopathy. In light of the pain over the last couple of weeks, GI was consulted to assess this further. PAST MEDICAL HISTORY: 1. Hypothyroidism. 2. Diabetes mellitus, type 1. 3. Ischemic cardiomyopathy. PAST SURGICAL HISTORY: . FAMILY HISTORY: Negative for GI malignancy. SOCIAL HISTORY: She quit smoking 3 years ago. She has smoked a pack and half per week prior to that. She has had rare alcohol use. No drug use. ALLERGIES: DEMEROL, IV CONTRAST, AND BIAXIN. MEDICATIONS: 1. Aspirin. 2. Atorvastatin. 3. Clopidogrel. 4. Enoxaparin. 5. Furosemide. 6. Carvedilol. 7. Entresto. 8. Venlafaxine. 9. Ivabradine. REVIEW OF SYSTEMS: Negative x10 systems reviewed except as stated in history of present illness. PHYSICAL EXAMINATION: VITAL SIGNS: Temperature 98.2, pulse 96, blood pressure 102/55. GENERAL: She is in no acute distress. She is pale, alert, oriented x3. HEENT: Eyes have no scleral icterus. Oropharynx is clear without lesions. No cervical or supraclavicular lymphadenopathy. LUNGS: Clear to auscultation bilaterally. HEART: Regular rate and rhythm without murmur. ABDOMEN: Soft, tender in the upper most epigastric region without guarding. Bowel sounds are present. EXTREMITIES: Trace lower extremity edema. LABORATORY DATA: White blood cell count 10.2, hemoglobin 8.5, and platelets 328. Creatinine 1.08. Iron 23, TIBC 373, and ferritin 56. Bilirubin 0.5, AST 73, ALT 61, and alkaline phosphatase 105. IMPRESSION: 1. Epigastric burning pain that radiates up into her chest, very typical of peptic type symptoms. She could have a peptic ulcer. She is not having signs of overt bleeding at this point. She denies having been on a proton pump inhibitor prior to admission, but was just taking sucralfate. She felt like the sucralfate was working better. 2. Severe ischemic cardiomyopathy with 3-vessel disease. 3. Diabetes mellitus, type 1. RECOMMENDATIONS: 1. We will give her chance for the proton pump inhibitor to work. I would give this twice daily. If her symptoms resolve with the proton pump inhibitor, then endoscopy should not be necessary. 2. Stool H pylori antigen. 3. Monitor for signs of overt bleeding. Job ID: [id number]
[2020-03-13] MEDS ORDERED: Amiodarone 450 MG, Admixture Fee 1 EACH in Dextrose 5% in Water 250 ML IVPB SCH (19:30)
[2020-03-13] MEDS ORDERED: Amiodarone 150 MG, Admixture Fee 1 EACH in Dextrose 5% in Water 100 ML IVPB SCH (19:30)
[2020-03-13 21:11] LABS: Anion Gap 16 mmol/L (10-20); BUN (Urea Nitrogen) 24 mg/dL (7.0-18.7); Calc. Creatinine Clearance 83 mL/min (70-130); Calcium 8.8 mg/dL (7.8-10.44); Carbon Dioxide 26 mmol/L (22-29); Chloride 91 mmol/L (98-107); Glucose 389 mg/dL (70-105); Potassium 3.9 mmol/L (3.5-5.1); Sodium 129 mmol/L (136-145)
[2020-03-13] MEDS ORDERED: Sodium Chloride 0.9% 250 ML IVPB SCH (22:30)
[2020-03-13] MEDS ORDERED: Acetaminophen 325 MG TAB PO PRN (23:29)
[2020-03-13] MEDS: Calcium Carbonate 500 MG ChewTAB PO PRN (23:58)
[2020-03-14 07:21] LABS: Anion Gap 17 mmol/L (10-20); BUN (Urea Nitrogen) 24 mg/dL (7.0-18.7); Calc. Creatinine Clearance 92 mL/min (70-130); Calcium 8.5 mg/dL (7.8-10.44); Carbon Dioxide 23 mmol/L (22-29); Chloride 90 mmol/L (98-107); Glucose 324 mg/dL (70-105); Potassium 3.5 mmol/L (3.5-5.1); Sodium 126 mmol/L (136-145)
[2020-03-14 07:22] LABS: Anion Gap 16 mmol/L (10-20); BUN (Urea Nitrogen) 25 mg/dL (7.0-18.7); Calc. Creatinine Clearance 98 mL/min (70-130); Calcium 8.8 mg/dL (7.8-10.44); Carbon Dioxide 25 mmol/L (22-29); Chloride 94 mmol/L (98-107); Glucose 104 mg/dL (70-105); Potassium 3.7 mmol/L (3.5-5.1); Sodium 131 mmol/L (136-145)
[2020-03-14] MEDS ORDERED: HumaLOG 300 UNITS/3 ML VIAL SC PRN (07:28)
[2020-03-14] MEDS ORDERED: Dextrose 5% in Water 1,000 ML IV PRN (07:28)
[2020-03-14] MEDS ORDERED: Dextrose 50% Abboject 50 ML SYRINGE SLOW IVP PRN (07:28)
[2020-03-14 07:34] LABS: Mean Corpuscular HGB CONC 30.8 g/dL (32.0-36.0); Mean Corpuscular Hemoglobin 24.8 pg (27.0-31.0); Mean Corpuscular Volume 80.7 fL (78.0-98.0); Mean Platelet Volume 9.8 fL (7.4-10.4); Platelet Count 303 thou/uL (130-400); RBC Distribution Width 16.5 % (11.5-14.5); Red Blood Cell (RBC) Count 3.21 mill/uL (4.20-5.40); White Blood Cell (WBC) Count 9.8 thou/uL (4.8-10.8)
[2020-03-14] MEDS: Furosemide 40 MG/4 ML VIAL SLOW IVP SCH ×3 (08:00→14:05)
[2020-03-14] MEDS: Atorvastatin Calcium 40 MG TAB PO SCH (08:33)
[2020-03-14] MEDS: Liothyronine Sodium 5 MCG TAB PO SCH (08:33)
[2020-03-14] MEDS: Aspirin 81 mg Enteric Coated Tablet PO SCH (08:33)
[2020-03-14] MEDS: Clopidogrel Bisulfate 75 MG TAB PO SCH (08:33)
[2020-03-14] MEDS: Levothyroxine Sodium 100 MCG TAB PO SCH (08:34)
[2020-03-14] MEDS: Ivabradine 5 MG TAB PO SCH ×2 (08:40→21:35)
[2020-03-14] MEDS: Venlafaxine HCl 37.5 MG TAB PO SCH (08:40)
[2020-03-14] MEDS: Fludrocortisone Acetate 0.1 MG TAB PO SCH (08:41)
[2020-03-14] MEDS: Hydrocortisone 10 mg Tablet PO SCH ×2 (08:41→20:35)
[2020-03-14] MEDS: Enoxaparin Sodium 40 MG/0.4 ML SYRINGE SC SCH (08:45)
[2020-03-14] MEDS ORDERED: Potassium Chloride 20 MEQ TAB PO SCH (09:00)
[2020-03-14] MEDS ORDERED: Magnesium Sulfate 2 GM in Sodium Chloride 0.9% 100 ML IVPB SCH (09:00)
[2020-03-14] MEDS ORDERED: Insulin Glargine 30 UNITS in Pre-Filled Syringe 1 EACH SC SCH (09:00)
[2020-03-14] MEDS ORDERED: Magnesium 2 GM/50 ML 2 GM in Premix Bag 1 BAG IVPB SCH (09:15)
[2020-03-14] MEDS ORDERED: Furosemide 40 MG/4 ML VIAL SLOW IVP SCH (09:15)
--- NOTE | 2020-03-14 09:17 | PDOC.HOSPP ---
- Subjective Encounter Date: 03/14/20 Encounter Time: 09:15 Subjective: Ms. Vargas was seen today in follow-up of CHF exacerbation. She says she now notes a pain on her left side which radiates to her back. She describes it as sharp, and worse with movement. She also notes some increase in dyspnea. - Objective Vital Signs & Weight: Vital Signs (12 hours) Temp Pulse Ox 03/14/20 08:03 91 L 03/14/20 07:53 95 03/13/20 22:20 88 L 03/13/20 22:15 99.4 F Weight Admit Weight 187 lb 9.814 oz Weight 186 lb 15.232 oz Most Recent Monitor Data Heart Rate from ECG 83 NIBP 102/60 NIBP BP-Mean 74 Respiration from ECG 22 SpO2 98 I&O: 03/13/20 03/14/20 03/15/20 06:59 06:59 06:59 Intake Total 1800 100 0 Output Total 1050 0 0 Balance 750 100 0 Result Diagrams: 03/14/20 03:30 03/14/20 16:33 Additional Labs: Accuchecks 03/14/20 03/14/20 03/14/20 08:23 01:54 00:45 POC Glucose 133 H 122 H 171 H 03/13/20 03/13/20 03/13/20 23:55 23:01 22:12 POC Glucose 238 H 327 H 365 H 03/13/20 03/13/20 03/13/20 21:37 19:55 16:31 POC Glucose 363 H 356 H 422 H 03/13/20 10:50 POC Glucose 369 H Hospitalist ROS - Medication Medications: Active Medications Generic Name Dose Route Start Last Admin Trade Name Freq PRN Reason Stop Dose Admin Acetaminophen 650 mg 03/13/20 23:29 03/13/20 23:58 Acetaminophen 325 Mg Tab PO 650 mg Q6H PRN Administration Headache/Fever or Pain Aspirin 81 mg 03/11/20 09:00 03/14/20 08:33 Aspirin 81 Mg Enteric Coated Tablet PO 81 mg DAILY EDMOND Administration Atorvastatin Calcium 80 mg 03/11/20 09:00 03/14/20 08:33 Atorvastatin Calcium 40 Mg Tab PO 80 mg DAILY EDMOND Administration Calcium Carbonate 1,000 mg 03/11/20 19:36 03/13/20 23:58 Calcium Carbonate 500 Mg Chewtab PO 1,000 mg Q4H PRN Administration Heartburn or Indigestion Clopidogrel Bisulfate 75 mg 03/11/20 09:00 03/14/20 08:33 Clopidogrel Bisulfate 75 Mg Tab PO 75 mg DAILY EDMOND Administration Cosyntropin 250 mcg 03/12/20 13:00 03/12/20 13:16 Cosyntropin 250 Mcg Vial SLOW IVP 250 mcg WILLCALL [facility] Administration Enoxaparin Sodium 40 mg 03/11/20 09:00 03/14/20 08:45 Enoxaparin Sodium 40 Mg/0.4 Ml Syringe SC 40 mg 0900 EDMOND Administration Fludrocortisone Acetate 0.1 mg 03/13/20 09:00 03/14/20 08:41 Fludrocortisone Acetate 0.1 Mg Tab PO 0.1 mg DAILY EDMOND Administration Furosemide 40 mg 03/11/20 06:00 03/13/20 15:14 Furosemide 40 Mg/4 Ml Vial SLOW IVP Not Given 0600,1400 ED[facility] Hydrocortisone 10 mg 03/13/20 09:00 03/14/20 08:41 Hydrocortisone 10 Mg Tablet PO 10 mg QAM EDMOND Administration Hydrocortisone 5 mg 03/12/20 21:00 03/13/20 21:31 Hydrocortisone 10 Mg Tablet PO 5 mg QPM EDMOND Administration Dobutamine HCl/Dextrose 250 mls @ 12.72 mls/hr 03/13/20 09:15 03/13/20 10:56 Dobutamine 500 Mg/250 Ml IVPB 250 mls INF EDMOND Administration 5 MCG/KG/MIN Amiodarone HCl 450 mg/ 259 mls @ 0 mls/hr 03/13/20 19:30 03/13/20 21:46 Miscellaneous Medication 1 IVPB 03/14/20 19:31 259 mls each/ Dextrose/Water INF EDMOND Administration Protocol As Directed Magnesium Sulfate 2 gm/ Device 50 mls @ 50 mls/hr 03/14/20 09:15 03/14/20 09:14 IVPB 03/14/20 12:00 50 mls NOW EDMOND Administration Ivabradine 2.5 mg 03/11/20 21:00 03/14/20 08:40 Ivabradine 5 Mg Tab PO 2.5 mg BID EDMOND Administration Levothyroxine Sodium 100 mcg 03/13/20 06:00 03/14/20 08:34 Levothyroxine Sodium 100 Mcg Tab PO 100 mcg 0600 EDMOND Administration Liothyronine Sodium 5 mcg 03/13/20 09:00 03/14/20 08:33 Liothyronine Sodium 5 Mcg Tab PO 5 mcg DAILY EDMOND Administration Metoprolol Succinate 12.5 mg 03/12/20 21:00 03/14/20 08:52 Metoprolol Succinate Xl 25 Mg Tab PO Not Given Q12HR EDMOND Pantoprazole Sodium 40 mg 03/13/20 09:00 03/14/20 08:33 Pantoprazole 40 Mg Tab PO 40 mg DAILY EDMOND Administration Sodium Chloride 10 ml 03/12/20 21:00 03/14/20 08:52 Flush - Normal Saline 10 Ml Syringe IVF 10 ml Q12HR EDMOND Administration Sucralfate 1 gm 03/12/20 13:42 03/12/20 14:44 Sucralfate 1 Gm/10 Ml Udcup PO 1 gm Q6H PRN Administration Dyspepsia Venlafaxine HCl 37.5 mg 03/12/20 09:00 03/14/20 08:40 Venlafaxine Hcl 37.5 Mg Tab PO 37.5 mg DAILY EDMOND Administration Hospitalist Exam Vitals: Vital Signs (12 hours) Temp Pulse Ox 03/14/20 08:03 91 L 03/14/20 07:53 95 03/13/20 22:20 88 L 03/13/20 22:15 99.4 F Weight Admit Weight 187 lb 9.814 oz Weight 186 lb 15.232 oz Most Recent Monitor Data Heart Rate from ECG 83 NIBP 102/60 NIBP BP-Mean 74 Respiration from ECG 22 SpO2 98 General Appearance: NAD, awake alert Eye: PERRL, anicteric sclera Heart: RRR, no murmur, no gallops, no rubs, normal peripheral pulses Respiratory: no wheezes, no ronchi, rales (faint rales at the bases) Gastrointestinal: soft, non-tender, non-distended, normal bowel sounds, no palpable masses, no hepatomegaly Extremities: no cyanosis, 1+ LE edema Hosp A/P (1) Acute on chronic combined systolic (congestive) and diastolic (congestive) heart failure Code(s): I50.43 - ACUTE ON CHRONIC COMBINED SYSTOLIC AND DIASTOLIC HRT FAIL Status: Acute (2) CAD (coronary artery disease) Code(s): I25.10 - ATHSCL HEART DISEASE OF [place] CORONARY ARTERY W/O ANG PCTRS Status: Acute (3) Diabetes mellitus type 1 Status: Acute (4) Hypothyroidism Code(s): E03.9 - HYPOTHYROIDISM, UNSPECIFIED Status: Chronic (5) Hyponatremia Code(s): E87.1 - HYPO-OSMOLALITY AND HYPONATREMIA Status: Acute (6) Hypomagnesemia Code(s): E83.42 - HYPOMAGNESEMIA Status: Acute - Plan * Acute on chronic systolic and diastolic heart failure- She is stable on the Dobuatime drip * Metoprolol has been added, but her blood pressure remains too low to add other heart failure medications * Amiodarone will be changed to p.o. * DM- blood glucose has improved- will discontinue the insulin drip * Hypothyroidism-Continue Levothyroxine and Cytomel * Hyponatremia- improved * Hypotension- continue Florinef * CAD- as above- she may need evaluation for re-vascularization * Chest pain- the description is musculoskeletal, with some reproducibility in the mid back. It may also be a radiculopathy from long-standing diabetes mellitus as well. However she is at risk for PE and will check a D-Dimer- if elevated will obtain a CTA * Abdominal pain and anemia- Discussed with Dr. Lambert, will continue PPI, and check stool for H. Pylori Ag
[2020-03-14] MEDS: HumaLOG 300 UNITS/3 ML VIAL SC SCH ×3 (09:20→17:27)
[2020-03-14] MEDS: Albumin 25% 25 GM/100 ML BOT IVPB SCH ×2 (09:25→20:35)
[2020-03-14 09:42] LABS: Band 21 % (5-11); Burr Cells SLIGHT = 2-5 cells (100X) (0-1/hpf); Eosinophils 5 % (0-10); Hypochromia MODERATE=16-30 cells (100X) (0-5/hpf); Lymphocytes 28 % (21-51); MDiff Complete? YES; Monocytes 13 % (0-10); Neutrophil 31 % (42-75); Platelet Morphology Comment Appears Adequate; Polychromasia SLIGHT = 2-3 cells (100X) (0-2/hpf); Reactive Lymphocytes 1 % (0-10); Schistocytes SLIGHT = 2-5 cells (100X) (0-1/hpf)
[2020-03-14] MEDS ORDERED: Insulin Glargine 20 UNITS in Pre-Filled Syringe 1 EACH SC SCH (09:45)
--- NOTE | 2020-03-14 10:01 | PRG ---
DATE OF SERVICE: 03/14/2020 SUBJECTIVE: Ms. Vargas had a variable day. Dobutamine 2.5 mcg/kg was started. It was not enough to sustain systolic blood pressure above 90. Dobutamine was titrated to 5 mcg/kg per minute. With dobutamine at 5 mcg/kg/min, her systolic blood pressure was in high 90s and low 100s. She had difficult to control glucose. Her glucose is 300 to 400. Increasing doses of glargine and regular insulin was not able to bring it back down to control. She felt nauseated and has a bad taste in her mouth. These symptoms suggests that she may be starting to heading toward lactic acidosis. She is a type 1 diabetic and this could be a very real possibility. Later on, then she had one run 10-beat of ventricular tachycardia. Consequently, insulin drip was initiated to get her blood sugar under control and amiodarone IV was used to prevent further ventricular tachycardia. She was moved from telemetry floor to [facility]. She had a low blood pressure overnight. She received one bolus of 250 mL of fluid. This morning, her blood pressure is in the high 90s and low 100s again. Her heart rate has dropped from 100s down to the mid 80s. However, she developed new symptoms of left- sided pleuritic chest pain. It came on suddenly and then it hurts like a stabbing sensation with inspiration. However, gradual movement would make her feel better. She also feels edematous. She feels like there is fluid buildup around her abdomen and fluid buildup on her legs. This is how she experienced with her heart failure exacerbation. She believes this is coming again. REVIEW OF SYSTEMS: GENERAL: There is no fever, chills, or productive cough. HEENT: There is no change in vision, hearing, or swallowing. PULMONARY: Please see HPI. CARDIAC: Please see HPI. GI: Please see HPI. : She is still able to urinate on her own. MUSCULOSKELETAL: There is no muscle or joint pain. INTEGUMENT: There is no new skin breakdown. NEUROLOGIC: There are no focal deficits or weaknesses. ALLERGIES: CLARITHROMYCIN, IODINE, AND MEPERIDINE. MEDICATIONS: Her active medications include; 1. Amiodarone drip, currently at 0.5 mg/minute. 2. Aspirin 81 mg daily. 3. Atorvastatin 80 mg at bedtime. 4. Plavix 75 mg daily. 5. Dobutamine currently at 5 mcg/kg per minute. 6. Enoxaparin at 40 mg subcutaneously daily. 7. Fludrocortisone 0.1 mg daily. 8. Hydrocortisone 10 mg q.a.m. and 5 mg q.p.m. 9. Insulin glargine 30 units daily. 10. Lispro insulin 5 units t.i.d. a.c. with sliding scale. 11. Ivabradine 2.5 mg b.i.d., I do not think that has been given. 12. Levothyroxine 100 mcg daily. 13. Liothyronine at 5 mcg daily. 14. Toprol-XL 12.5 p.o. q.12 hours, I do not think that was given. 15. Protonix 40 mg daily. 16. Sucralfate 1 g q.6 hours. 17. Effexor 37.5 mg daily. PHYSICAL EXAMINATION: Telemetry was reviewed. She is currently in sinus rhythm. Since been in the [facility], there was no more arrhythmia. VITAL SIGNS: Heart rate 84, blood pressure 99/66. GENERAL: She is alert and conversational, reclining and relaxed in bed. She said that since her glucose was brought under 200, she felt much much better. HEENT: Showed EOMI. Oropharynx is benign with moist mucosa. NECK: JVP is more elevated today at about 14 cm. PULMONARY: There is good air movement bilaterally. However, there is slight crackle on the left base. CARDIAC. There is regular rate and rhythm, rate about 80. Besides S1/Se, there are S3 and S4 near the apex; therefore, she exhibited summation gallop. There is also 2/6 holosystolic murmur. She has severe cardiomyopathy and mitral regurgitation. ABDOMEN: Soft, nontender, more distended. EXTREMITIES: Lower extremity has about 1 cm pitting edema from feet toward her knee. This pitting edema has increased since yesterday. LABORATORY DATA: Her sodium is 131, potassium 3.7, chloride 94, BUN 25, creatinine 1.05, glucose 133. Her CBC shows white cell count 9.8, hemoglobin 8, platelets 303. ASSESSMENT: A 35-year-old lady, has multitude of problems. She has heart failure with reduced ejection fraction with both systolic and diastolic dysfunctions. She is requiring at least dobutamine at 5 mcg/kg to augment her heart to support her physiology. She also has paroxysmal ventricular tachycardia, now we are using amiodarone to prevent recurrence. She also has a right ventricular failure/cor pulmonale, the dobutamine is helping this. Her tachycardia has gone away with initiation of amiodarone, so this would suggest there are cardiomyopathy components to it. She had hyperglycemia due to type 1 diabetes. With initiation of the insulin drip, this has been corrected, so we need to aim to keep the blood glucose below 200. We also need to keep her electrolytes under control. Her pleuritic chest pains could be just her more fluid overload. However, there is a slight chance that could be a pulmonary embolus. However, she is already on enoxaparin for deep venous thrombosis prophylaxis, so there is less chance of this happening, but we need to carefully check this out. RECOMMENDATIONS: 1. Please give her Lasix 40 mg IV one dose now. 2. Please provide potassium 20 mEq p.o. daily, first dose now. 3. Please give magnesium sulfate 2 g IV one dose now. 4. Please do chest x-ray to look for pulmonary edema. 5. Please do D-dimer, type and screen and transfuse to keep hemoglobin above 9. This will help with the blood pressure and cardiac condition. 6. Please increase dobutamine to 6 mcg/kg per minute. 7. It is okay to transfer her from ICU to a telemetry bed today. She does not require insulin drip anymore and that her systolic blood pressure has returned to normal range. This is to make bed available for the patient who is intubated in the ER. 8. We will continue to work on successful transfer to [facility]. It has been a pleasure taking care of Ms. Macie Vargas. If you have any questions, please give me a call. The total ICU time today is 45 minutes. Job ID: [id number] MTDD
[2020-03-14 10:14] LABS: Magnesium 1.6 mg/dL (1.6-2.6)
[2020-03-14] MEDS ORDERED: Ondansetron PF 4 MG/2 ML Vial ONE (10:44)
--- NOTE | 2020-03-14 11:29 | PRG ---
DATE OF SERVICE: 03/14/2020 SUBJECTIVE: The patient is sitting up at the bedside comfortably. She reports her upper abdominal pain has improved with pantoprazole. She still has some regurgitation and other dyspeptic symptoms. No nausea, but one episode of emesis this morning. PHYSICAL EXAMINATION: VITAL SIGNS: Temperature is 99.4, blood pressure 123/95, pulse 104. GENERAL: She is alert without distress. HEENT: Shows anicteric sclerae. CV: Shows normal S1, S2. Regular rate and rhythm. CHEST: Shows her breath sounds clear to auscultation. ABDOMEN: Protuberant, but soft. No distention. No tympany. There is no tenderness to deep palpation. EXTREMITIES: Show no edema. LABORATORY DATA: Hemoglobin 8.0, white blood count 9.8, platelet count of 303. Electrolytes stable. Creatinine 1.05. ASSESSMENT: 1. Epigastric burning pain with reflux-type dyspepsia, subjectively improved with pantoprazole. The patient could have a component of gastric dysmotility given her long history of type 1 diabetes. Polypharmacy is also likely contributing factor. 2. Severe ischemic cardiomyopathy with 3-vessel disease. RECOMMENDATIONS: 1. Continue with pantoprazole. We will increase from daily to b.i.d. 2. We will obtain abdominal ultrasound. 3. We will follow conservative therapy. We will continue observation. No indication for endoscopy at the present time. Job ID: [id number]
--- NOTE | 2020-03-14 12:33 | PDOC.HOSPP ---
- Subjective Encounter Date: 03/14/20 Encounter Time: 08:15 Subjective: Ms. Vargas is a 35 y old female with combine systolic and diastolic heart with a past medical history of coronary artery disease, type I diabetes mellitus, and hypothyroidism. Her condition is stable and we are waiting for her transfer to [facility] for advanced cardiac care. - Objective Vital Signs & Weight: Vital Signs (12 hours) Pulse Ox 03/14/20 08:03 91 L 03/14/20 07:53 95 Weight Admit Weight 85.1 kg Weight 84.8 kg Most Recent Monitor Data Heart Rate from ECG 82 NIBP 123/95 NIBP BP-Mean 104 Respiration from ECG 21 SpO2 99 I&O: 03/13/20 03/14/20 03/15/20 06:59 06:59 06:59 Intake Total 1800 100 0 Output Total 1050 0 850 Balance 750 100 -850 Result Diagrams: 03/15/20 04:40 03/15/20 04:40 Additional Labs: Accuchecks 03/14/20 03/14/20 03/14/20 10:31 08:23 01:54 POC Glucose 155 H 133 H 122 H 03/14/20 03/13/20 03/13/20 00:45 23:55 23:01 POC Glucose 171 H 238 H 327 H 03/13/20 03/13/20 03/13/20 22:12 21:37 19:55 POC Glucose 365 H 363 H 356 H 03/13/20 16:31 POC Glucose 422 H Hospitalist ROS - Review of Systems Constitutional: denies: fever, chills, sweats Eyes: denies: vision change Respiratory: reports: shortness of breath, pleuritic pain. denies: cough Cardiovascular: reports: chest pain, palpitations Gastrointestinal: denies: nausea, vomiting, abdominal pain, diarrhea - Medication Medications: Active Medications Generic Name Dose Route Start Last Admin Trade Name Freq PRN Reason Stop Dose Admin Acetaminophen 650 mg 03/13/20 23:29 03/13/20 23:58 Acetaminophen 325 Mg Tab PO 650 mg Q6H PRN Administration Headache/Fever or Pain Albumin Human 25 gm 03/14/20 09:00 03/14/20 09:25 Albumin 25% 25 Gm/100 Ml Bot IVPB 03/15/20 09:01 25 gm Q12HR EDMOND Administration Aspirin 81 mg 03/11/20 09:00 03/14/20 08:33 Aspirin 81 Mg Enteric Coated Tablet PO 81 mg DAILY EDMOND Administration Atorvastatin Calcium 80 mg 03/11/20 09:00 03/14/20 08:33 Atorvastatin Calcium 40 Mg Tab PO 80 mg DAILY EDMOND Administration Calcium Carbonate 1,000 mg 03/11/20 19:36 03/13/20 23:58 Calcium Carbonate 500 Mg Chewtab PO 1,000 mg Q4H PRN Administration Heartburn or Indigestion Clopidogrel Bisulfate 75 mg 03/11/20 09:00 03/14/20 08:33 Clopidogrel Bisulfate 75 Mg Tab PO 75 mg DAILY EDMOND Administration Cosyntropin 250 mcg 03/12/20 13:00 03/12/20 13:16 Cosyntropin 250 Mcg Vial SLOW IVP 250 mcg WILLCALL [facility] Administration Enoxaparin Sodium 40 mg 03/11/20 09:00 03/14/20 08:45 Enoxaparin Sodium 40 Mg/0.4 Ml Syringe SC 40 mg 0900 EDMOND Administration Fludrocortisone Acetate 0.1 mg 03/13/20 09:00 03/14/20 08:41 Fludrocortisone Acetate 0.1 Mg Tab PO 0.1 mg DAILY [facility] Administration Furosemide 40 mg 03/11/20 06:00 03/14/20 09:22 Furosemide 40 Mg/4 Ml Vial SLOW IVP Not Given 0600,1400 [facility] Hydrocortisone 10 mg 03/13/20 09:00 03/14/20 08:41 Hydrocortisone 10 Mg Tablet PO 10 mg QAM EDMOND Administration Hydrocortisone 5 mg 03/12/20 21:00 03/13/20 21:31 Hydrocortisone 10 Mg Tablet PO 5 mg QPM EDMOND Administration Amiodarone HCl 450 mg/ 259 mls @ 0 mls/hr 03/13/20 19:30 03/13/20 21:46 Miscellaneous Medication 1 IVPB 03/14/20 19:31 259 mls each/ Dextrose/Water INF EDMOND Administration Protocol As Directed Insulin Human Lispro 5 units 03/14/20 08:00 03/14/20 11:33 Humalog 300 Units/3 Ml Vial SC Not Given TID-WM [facility] Ivabradine 2.5 mg 03/11/20 21:00 03/14/20 08:40 Ivabradine 5 Mg Tab PO 2.5 mg BID EDMOND Administration Levothyroxine Sodium 100 mcg 03/13/20 06:00 03/14/20 08:34 Levothyroxine Sodium 100 Mcg Tab PO 100 mcg 0600 EDMOND Administration Liothyronine Sodium 5 mcg 03/13/20 09:00 03/14/20 08:33 Liothyronine Sodium 5 Mcg Tab PO 5 mcg DAILY EDMOND Administration Metoprolol Succinate 12.5 mg 03/12/20 21:00 03/14/20 08:52 Metoprolol Succinate Xl 25 Mg Tab PO Not Given Q12HR EDMOND Potassium Chloride 20 meq 03/14/20 09:00 03/14/20 09:25 Potassium Chloride 20 Meq Tab PO 20 meq DAILY EDMOND Administration Sodium Chloride 10 ml 03/12/20 21:00 03/14/20 08:52 Flush - Normal Saline 10 Ml Syringe IVF 10 ml Q12HR EDMOND Administration Sucralfate 1 gm 03/12/20 13:42 03/12/20 14:44 Sucralfate 1 Gm/10 Ml Udcup PO 1 gm Q6H PRN Administration Dyspepsia Venlafaxine HCl 37.5 mg 03/12/20 09:00 03/14/20 08:40 Venlafaxine Hcl 37.5 Mg Tab PO 37.5 mg DAILY EDMOND Administration Hospitalist Exam Vitals: Vital Signs (12 hours) Pulse Ox 03/14/20 08:03 91 L 03/14/20 07:53 95 Weight Admit Weight 85.1 kg Weight 84.8 kg Most Recent Monitor Data Heart Rate from ECG 82 NIBP 123/95 NIBP BP-Mean 104 Respiration from ECG 21 SpO2 99 General Appearance: NAD Eye: PERRL ENT: normocephalic atraumatic Neck: supple Heart: murmur present Heart - other findings: S3 and S4 (gallop) present. Other murmur present. Respiratory: normal chest expansion Respiratory - other findings: auscultation to left lower lung produced some crackles Gastrointestinal: soft, non-tender, non-distended, normal bowel sounds, no palpable masses, no guarding, no rigidity Extremities: no cyanosis, no clubbing, 1+ LE edema Psychiatric: normal affect Hosp A/P (1) Acute on chronic combined systolic (congestive) and diastolic (congestive) heart failure Code(s): I50.43 - ACUTE ON CHRONIC COMBINED SYSTOLIC AND DIASTOLIC HRT FAIL Status: Acute Plan: Dr. Painting is following. Currently has on Amiodarone for cardiac arrythmia and Dobutamine. Waiting to see if GI symptoms improve with PPIs. (2) Hyponatremia Code(s): E87.1 - HYPO-OSMOLALITY AND HYPONATREMIA Status: Acute
--- NOTE | 2020-03-14 14:11 | ULT ---
ABDOMINAL ULTRASOUND: Date: 03/14/2020 COMPARISON: None. HISTORY: Upper abdominal pain. TECHNIQUE: Multiplanar grayscale sonographic imaging of the abdomen provided. FINDINGS: Visualized portions of the pancreas appear grossly unremarkable. The distal body and tail of the panc reas are obscured by bowel gas. Imaged portions of the IVC and aorta appear grossly unremarkable. The mid and distal abdominal aorta are obscured by bowel gas. The hepatic parenchyma is mildly heterogeneous. There is phasic blood flow within the main portal vei n which is hepatopetal in direction. There is a probable small right pleural effusion. There is proba ble trace free fluid adjacent to the left lobe of the liver. The gallbladder wall is markedly thicken ed; however, the gallbladder is completely contracted, markedly limiting assessment. The common bile duct measures 4.0 mm, within normal limits. The right kidney measures 11.6 cm in craniocaudal dimension and demonstrates no stone, hydronephrosis , or mass. Minimal fluid is suspected in Morison's pouch. Left kidney measures approximately 12.0 cm in craniocaudal dimension and demonstrates no stone, hydro nephrosis, or mass. Detailed assessment of the left kidney is limited by bowel gas. The spleen could not be visualized secondary to bowel gas. IMPRESSION: Technically limited examination demonstrating no acute findings. Incidental findings as described abo ve. POS: H
[2020-03-14 17:09] LABS: Anion Gap 20 mmol/L (10-20); BUN (Urea Nitrogen) 22 mg/dL (7.0-18.7); Calc. Creatinine Clearance 93 mL/min (70-130); Calcium 8.7 mg/dL (7.8-10.44); Carbon Dioxide 23 mmol/L (22-29); Chloride 91 mmol/L (98-107); Glucose 281 mg/dL (70-105); Potassium 4.6 mmol/L (3.5-5.1); Sodium 129 mmol/L (136-145)
[2020-03-14] MEDS: Ondansetron PF 4 MG/2 ML Vial SLOW IVP PRN (17:27)
--- NOTE | 2020-03-14 18:50 | PDOC.BPN ---
- Brief Progress Note Encounter Date: 03/14/20 Encounter Time: 18:49 I returned to discuss the patient's D-Dimer results and the possibility of obtaining a CTA of the chest. She informed me that the pain had completely resolved. She denies feeling short of breath. Will therefore hold off on the CTA at this time.
[2020-03-14] MEDS: Amiodarone 200 MG TAB PO SCH (20:35)
[2020-03-14] MEDS: HumaLOG 300 UNITS/3 ML VIAL SC PRN (20:35)
[2020-03-14] MEDS: DOBUTamine 500 mg/250 ml 250 ML IVPB SCH (23:30)
[2020-03-14] MEDS: Calcium Carbonate 500 MG ChewTAB PO PRN (23:30)
[2020-03-15 05:49] LABS: Anion Gap 18 mmol/L (10-20); BUN (Urea Nitrogen) 21 mg/dL (7.0-18.7); Calc. Creatinine Clearance 92 mL/min (70-130); Calcium 8.8 mg/dL (7.8-10.44); Carbon Dioxide 25 mmol/L (22-29); Chloride 92 mmol/L (98-107); Glucose 181 mg/dL (70-105); Magnesium 1.9 mg/dL (1.6-2.6); Potassium 4.7 mmol/L (3.5-5.1); Sodium 130 mmol/L (136-145)
[2020-03-15 06:00] LABS: #Basophils 0.2 thou/uL (0.0-0.2); #Eosinphils 0.8 thou/uL (0.0-0.7); #Lymphocytes 2.8 thou/uL (1.20-3.40); #Monocytes 1.1 thou/uL (0.11-0.59); %Basophils 1.7 % (0.0-1.0); %Eosinophils 7.6 % (0.0-10.0); %Lymphocytes 28.4 % (21.0-51.0); %Monocytes 11.3 % (0.0-10.0); %Neutrophils 50.9 % (42.0-75.0); Elliptocytes SLIGHT = 2-5 cells (100X) (0-1/hpf); MDiff Complete? YES; Mean Corpuscular HGB CONC 30.2 g/dL (32.0-36.0); Mean Corpuscular Hemoglobin 24.8 pg (27.0-31.0); Mean Corpuscular Volume 82.4 fL (78.0-98.0); Mean Platelet Volume 9.8 fL (7.4-10.4); Platelet Count 269 thou/uL (130-400); Poikilocytosis SLIGHT = 6-15 cells (100X) (0-5/hpf); RBC Distribution Width 16.5 % (11.5-14.5); Schistocytes SLIGHT = 2-5 cells (100X) (0-1/hpf); Target Cells SLIGHT = 2-5 cells (100X) (0-1/hpf); White Blood Cell (WBC) Count 9.8 thou/uL (4.8-10.8)
[2020-03-15] MEDS: Ondansetron PF 4 MG/2 ML Vial SLOW IVP PRN (06:08)
[2020-03-15] MEDS: Levothyroxine Sodium 100 MCG TAB PO SCH (06:08)
[2020-03-15] MEDS: Enoxaparin Sodium 40 MG/0.4 ML SYRINGE SC SCH (07:43)
[2020-03-15] MEDS: Aspirin 81 mg Enteric Coated Tablet PO SCH (07:44)
[2020-03-15] MEDS: Atorvastatin Calcium 40 MG TAB PO SCH (07:45)
[2020-03-15] MEDS: Hydrocortisone 10 mg Tablet PO SCH ×2 (07:46→20:34)
[2020-03-15] MEDS: Liothyronine Sodium 5 MCG TAB PO SCH (07:46)
[2020-03-15] MEDS: Fludrocortisone Acetate 0.1 MG TAB PO SCH (07:47)
[2020-03-15] MEDS: Clopidogrel Bisulfate 75 MG TAB PO SCH (07:47)
[2020-03-15] MEDS: HumaLOG 300 UNITS/3 ML VIAL SC SCH ×3 (07:47→17:48)
[2020-03-15] MEDS: Albumin 25% 25 GM/100 ML BOT IVPB SCH (07:48)
[2020-03-15] MEDS: Ivabradine 5 MG TAB PO SCH ×2 (08:29→20:37)
[2020-03-15] MEDS: Venlafaxine HCl 37.5 MG TAB PO SCH (08:30)
[2020-03-15] MEDS ORDERED: Ondansetron PF 4 MG/2 ML Vial SLOW IVP PRN (08:30)
[2020-03-15] MEDS ORDERED: Furosemide 100 MG/10 ML VIAL SLOW IVP SCH (08:30)
[2020-03-15] MEDS: Amiodarone 200 MG TAB PO SCH ×2 (08:30→20:33)
[2020-03-15] MEDS ORDERED: Magnesium 2 GM/50 ML 2 GM in Premix Bag 1 BAG IVPB SCH (08:30)
[2020-03-15] MEDS: Insulin Glargine 20 UNITS in Pre-Filled Syringe 1 EACH SC SCH (08:31)
[2020-03-15] MEDS: Calcium Carbonate 500 MG ChewTAB PO PRN ×2 (08:48→20:39)
--- NOTE | 2020-03-15 10:27 | PRG ---
DATE OF SERVICE: 03/15/2020 SERVICE: Advanced Heart Failure Transplant Cardiology Consult Service. SUBJECTIVE: Ms. Vargsa had a variable day. Yesterday morning, insulin drip was able to be turned off because her glucose went down to about 150 range. She was transferred from ICU down to the telemetry bed. However, she had persistent nausea and vomiting. She believes that she became very sick after swallowing a pill of potassium, that is the worst offender for nausea and vomiting. She said the Zofran did not help that much. Last night sometime approximately 1-2 hours after the IV Zofran 8 mg, she felt palpitation, was uncomfortable. Reviewing her telemetry showed that she had several short runs of nonsustained ventricular tachycardia, the longest was 7 beats. Since then, it has been quiet, there was no more ventricular tachycardia. This morning, she says she is breathing easier. She felt like the IV Lasix did help, but she is still nauseated. She said the Tums does help. REVIEW OF SYSTEMS: GENERAL: There is no fever, chills, or productive cough. HEENT: There is no change in vision, hearing, or swallowing. PULMONARY: Please see HPI. CARDIAC: Please see HPI. GI: Please see HPI. : She can urinate on her own without difficulty. MUSCULOSKELETAL: There is no joint pain or muscle pain. INTEGUMENT: There is no new skin breakdown. NEUROLOGIC: There are no focal deficits or weaknesses. CURRENT MEDICATIONS: 1. Albumin 25 g q.12 hours. 2. Amiodarone 400 mg p.o. b.i.d. for a 10 g load. 3. Aspirin 81 mg daily. 4. Atorvastatin 80 mg daily. 5. Tums 1 g every 4 hours p.r.n. 6. Clopidogrel 75 mg daily. 7. Dobutamine currently at 6 mcg/kg/minute. 8. Enoxaparin 40 mg daily. 9. Fludrocortisone 0.1 mg daily. 10. Hydrocortisone 10 mg in the morning and 5 mg in the afternoon. 11. Insulin glargine 20 units in the morning. 12. Insulin lispro 6 units t.i.d. a.c. and also sliding scale insulin 13. Ivabradine 2.5 mg b.i.d. 14. Levothyroxine 100 mcg daily. 15. Zofran 4 mg IV q.8 hours p.r.n. 16. Protonix 40 mg p.o. b.i.d. 17. Sucralfate 1 g p.o. q.6 hours p.r.n. We probably are going to need to make that on a more regular basis. Telemetry was reviewed. Between 10 and midnight, she had 4 runs of nonsustained ventricular tachycardia, the longest was 7 beats, the shortest was 3. Her current telemetry shows sinus rhythm, rate about 85. PHYSICAL EXAMINATION: CURRENT VITALS: Blood pressure 102/58. GENERAL: She is alert and conversational, sitting comfortably in bed. She is not short of breath. HEENT: Shows EOMI. Oropharynx is benign with moist mucosa. NECK: JVP is very elevated, about 14 cm right at the earlobe. PULMONARY: There is good air movement bilaterally. There are no crackles bilaterally. CARDIAC EXAM: Regular rate and rhythm with S1, S2, and distinct S3 gallop at the apex and also the left upper sternal border. There is 2/6 holosystolic murmur at left upper sternal border and 2/6 holosystolic murmur at the apex. She also has mitral regurgitation and tricuspid regurgitation. ABDOMEN: Soft, nontender. Positive bowel sounds. EXTREMITIES: There is about 0.5 cm pitting edema from feet to two-thirds of the way up towards knee. LABORATORY VALUES: Include sodium 130, potassium 4.7, chloride 92, bicarb 25, BUN 21, creatinine 1.12, magnesium at 1.9. White cell count 8, hemoglobin 8, and platelets 269. Her in's and out's yesterday 812 in and 1150 out. ASSESSMENT: 35-year-old lady, resides in [place] [employer] likely stage D, [place] [employer] class IV heart failure with reduced ejection fraction. She has both systolic and diastolic dysfunction. She also has right ventricular failure/cor pulmonale. She has paroxysmal ventricular tachycardia. All of these point to a very poor prognosis. Currently, she is dependent on dobutamine 6 mcg/kg/minute. She will need an intervention to correct the situation. She cannot survive very long on dobutamine and antiarrhythmics. She also has adrenal insufficiency that is currently being supplemented. She also has hypothyroidism with insufficient supplementation that is being corrected. She has a duodenal ulcer that also needs to be investigated. We will try to make a balance of all of these situations. Please see the following for my recommendation. RECOMMENDATIONS: 1. Continue dobutamine at 6 mcg/kg/minute, reduce down to 5 mcg/kg/min if 2. Reduce Zofran down to 4 mg IV q.8 hours p.r.n., and use this sparingly as possible because this will cause torsades. It might have been one of the triggers of her paroxysmal ventricular tachycardia last night. If one more episode occurs, discontinue it. 3. Continue amiodarone at 400 mg p.o. b.i.d., for 10 g load. She needs this to suppress her ventricular tachycardia. 4. Discontinue oral potassium since this making her very sick and throwing up. 5. Replace oral potassium with potassium 10 mEq IV daily at noon time. 6. Please provide furosemide 60 mg IV one dose now. She is volume overloaded. Monitor output. I will come back and check later on and provide a second dose today if needed. In her case, she has demonstrated vemtroci;ar tachycardia, so we have to be very careful with her fluid management that can shift her electrolytes 7. We will continue to work with staff to ensure that she is transferred to [facility] for potential advanced heart failure therapy evaluation. 8. I also changed the Sucralfate to scheduled basis instead of p.r.n. This will also help her with the GI situation. It has been a pleasure taking care of Ms. Vargas. Please give me a call if you need help. Total visitation time today is 50 minutes. Job ID: [id number] MTDD
[2020-03-15] MEDS ORDERED: Sucralfate 1 GM/10 ML UDCUP PO SCH (10:45)
[2020-03-15] MEDS ORDERED: Potassium Chloride 10 MEQ in Premix Bag 1 BAG IVPB SCH (12:00)
--- NOTE | 2020-03-15 17:43 | PDOC.HOSPP ---
- Subjective Encounter Date: 03/15/20 Encounter Time: 17:41 Subjective: Ms. Vargas was seen today in follow-up of CHF exacerbation. She continues to have some nausea, fairly constant. She notes a little shortness of breath as well. She denies any chest pain. - Objective Vital Signs & Weight: Vital Signs (12 hours) Temp Pulse Pulse Resp BP BP Pulse Ox 03/15/20 16:00 97.7 F 86 84 16 121/80 114/80 97 03/15/20 14:10 97.7 F 87 16 118/70 96 03/15/20 14:07 97.8 F 16 117/72 97 03/15/20 12:01 97.6 F 88 16 122/74 94 L 03/15/20 11:00 97.6 F 88 16 122/74 94 L 03/15/20 08:00 97.7 F 89 16 102/58 L 95 Weight Admit Weight 187 lb 9.814 oz Weight 186 lb Most Recent Monitor Data Heart Rate from ECG 83 NIBP 116/76 NIBP BP-Mean 89 Respiration from ECG 20 SpO2 99 I&O: 03/14/20 03/15/20 03/16/20 06:59 06:59 06:59 Intake Total 100 812 350 Output Total 0 1150 Balance 100 -338 350 Result Diagrams: 03/15/20 04:40 03/15/20 04:40 Additional Labs: Accuchecks 03/15/20 03/15/20 03/15/20 16:34 11:14 09:57 POC Glucose 180 H 92 97 03/15/20 03/14/20 03/14/20 05:51 22:57 20:34 POC Glucose 163 H 182 H 280 H Hospitalist ROS - Medication Medications: Active Medications Generic Name Dose Route Start Last Admin Trade Name Freq PRN Reason Stop Dose Admin Acetaminophen 650 mg 03/13/20 23:29 03/13/20 23:58 Acetaminophen 325 Mg Tab PO 650 mg Q6H PRN Administration Headache/Fever or Pain Amiodarone HCl 400 mg 03/14/20 21:00 03/15/20 08:30 Amiodarone 200 Mg Tab PO 400 mg BID EDMOND Administration Aspirin 81 mg 03/11/20 09:00 03/15/20 07:44 Aspirin 81 Mg Enteric Coated Tablet PO 81 mg DAILY EDMOND Administration Atorvastatin Calcium 80 mg 03/11/20 09:00 03/15/20 07:45 Atorvastatin Calcium 40 Mg Tab PO 80 mg DAILY EDMOND Administration Calcium Carbonate 1,000 mg 03/11/20 19:36 03/15/20 08:48 Calcium Carbonate 500 Mg Chewtab PO 1,000 mg Q4H PRN Administration Heartburn or Indigestion Clopidogrel Bisulfate 75 mg 03/11/20 09:00 03/15/20 07:47 Clopidogrel Bisulfate 75 Mg Tab PO 75 mg DAILY EDMOND Administration Cosyntropin 250 mcg 03/12/20 13:00 03/12/20 13:16 Cosyntropin 250 Mcg Vial SLOW IVP 250 mcg WILLCALL EDMOND Administration Enoxaparin Sodium 40 mg 03/11/20 09:00 03/15/20 07:43 Enoxaparin Sodium 40 Mg/0.4 Ml Syringe SC 40 mg 0900 EDMOND Administration Fludrocortisone Acetate 0.1 mg 03/13/20 09:00 03/15/20 07:47 Fludrocortisone Acetate 0.1 Mg Tab PO 0.1 mg DAILY EDMOND Administration Hydrocortisone 10 mg 03/13/20 09:00 03/15/20 07:46 Hydrocortisone 10 Mg Tablet PO 10 mg QAM EDMOND Administration Hydrocortisone 5 mg 03/12/20 21:00 03/14/20 20:35 Hydrocortisone 10 Mg Tablet PO 5 mg QPM EDMOND Administration Dobutamine HCl/Dextrose 250 mls @ 12.72 mls/hr 03/14/20 09:30 03/14/20 23:30 Dobutamine 500 Mg/250 Ml IVPB 250 mls INF EDMOND Administration 5 MCG/KG/MIN Insulin Glargine 20 units/ 0.2 mls @ 0 mls/hr 03/15/20 09:00 03/15/20 08:31 Miscellaneous Medication SC 0.2 mls QAM EDMOND Administration Potassium Chloride 10 meq/ 100 mls @ 100 mls/hr 03/15/20 12:00 03/15/20 11:14 Device IVPB 100 mls 1200 EDMOND Administration Insulin Human Lispro 0 units 03/14/20 07:28 03/15/20 06:09 Humalog 300 Units/3 Ml Vial SC 3 unit .AGGRESSIVE SLIDING PRN Administration Aggressive [employer] Scale Insulin Human Lispro 0 units 03/14/20 07:28 03/14/20 20:35 Humalog 300 Units/3 Ml Vial SC 3 unit .BEDTIME SLIDING SC PRN Administration Bedtime Correctional Scale Insulin Human Lispro 6 units 03/15/20 08:00 03/15/20 11:14 Humalog 300 Units/3 Ml Vial SC Not Given TID-WM EDMOND Ivabradine 2.5 mg 03/11/20 21:00 03/15/20 08:29 Ivabradine 5 Mg Tab PO 2.5 mg BID EDMOND Administration Levothyroxine Sodium 100 mcg 03/13/20 06:00 03/15/20 06:08 Levothyroxine Sodium 100 Mcg Tab PO 100 mcg 0600 EDMOND Administration Pantoprazole Sodium 40 mg 03/14/20 21:00 03/15/20 07:46 Pantoprazole 40 Mg Tab PO 40 mg BID EDMOND Administration Sodium Chloride 10 ml 03/12/20 21:00 03/15/20 08:30 Flush - Normal Saline 10 Ml Syringe IVF 10 ml Q12HR EDMOND Administration Venlafaxine HCl 37.5 mg 03/12/20 09:00 03/15/20 08:30 Venlafaxine Hcl 37.5 Mg Tab PO 37.5 mg DAILY EDMOND Administration Hospitalist Exam Vitals: Vital Signs (12 hours) Temp Pulse Pulse Resp BP BP Pulse Ox 03/15/20 16:00 97.7 F 86 84 16 121/80 114/80 97 03/15/20 14:10 97.7 F 87 16 118/70 96 03/15/20 14:07 97.8 F 16 117/72 97 03/15/20 12:01 97.6 F 88 16 122/74 94 L 03/15/20 11:00 97.6 F 88 16 122/74 94 L 03/15/20 08:00 97.7 F 89 16 102/58 L 95 Weight Admit Weight 187 lb 9.814 oz Weight 186 lb Most Recent Monitor Data Heart Rate from ECG 83 NIBP 116/76 NIBP BP-Mean 89 Respiration from ECG 20 SpO2 99 General Appearance: NAD, awake alert Eye: PERRL, anicteric sclera Heart: RRR, no murmur, no gallops, no rubs, normal peripheral pulses Respiratory: CTAB, no wheezes, no rales, no ronchi, normal chest expansion Gastrointestinal: soft, non-tender, non-distended, normal bowel sounds, no palpable masses, no hepatomegaly Extremities: no cyanosis, no edema Hosp A/P (1) Acute on chronic combined systolic (congestive) and diastolic (congestive) heart failure Code(s): I50.43 - ACUTE ON CHRONIC COMBINED SYSTOLIC AND DIASTOLIC HRT FAIL Status: Acute (2) CAD (coronary artery disease) Code(s): I25.10 - ATHSCL HEART DISEASE OF [place] CORONARY ARTERY W/O ANG PCTRS Status: Acute (3) Diabetes mellitus type 1 Status: Acute (4) Hypothyroidism Code(s): E03.9 - HYPOTHYROIDISM, UNSPECIFIED Status: Chronic (5) Hyponatremia Code(s): E87.1 - HYPO-OSMOLALITY AND HYPONATREMIA Status: Acute (6) Hypomagnesemia Code(s): E83.42 - HYPOMAGNESEMIA Status: Acute - Plan * Acute on chronic systolic and diastolic heart failure- She is stable on the Dobuatime drip * Continue Metoprolol * Nausea- this could be medication side effects- Amiodarone, Cytomel ect. Will discontinue Cytomel, as it may not be adding much to thyroid replacement. * Will defer changes in heart failure medication to Cardiology * Episodes of Ventricular Tachycardia- will consult EP- due to the low EF- consideration for Defibrillator * DM- blood glucose- has improved * Hypothyroidism-Continue Levothyroxine * Hyponatremia- improved * Hypotension- continue Florinef * CAD- as above- she may need evaluation for re-vascularization * Chest pain- resolved * Abdominal pain and anemia-resolved * Awaiting transfer to [facility]
[2020-03-15] MEDS: DOBUTamine 500 mg/250 ml 250 ML IVPB SCH (19:45)
[2020-03-15] MEDS: Sucralfate 1 GM/10 ML UDCUP PO SCH (20:38)
--- NOTE | 2020-03-15 20:43 | PRG ---
DATE OF SERVICE: 03/15/2020 SUBJECTIVE: The patient is having more epigastric pain and is not able to keep anything down. She had a small cup of broth today and that is the only thing she has had. She has had no bowel movement. OBJECTIVE: VITAL SIGNS: Temperature 97.7, pulse 86, respiratory rate 16, blood pressure 114/80. CHEST: Clear. CARDIOVASCULAR: Regular rate and rhythm. ABDOMEN: Soft, tender in the epigastric area without rebound or guarding. LABORATORY DATA: Shows a white blood cell count of 9.8, hemoglobin of 8.0, hematocrit 26.4. Chemistry: Sodium 130, chloride 92, BUN 21, creatinine 1.12, glucose 181. Abdominal ultrasound showed no significant abnormalities. ASSESSMENT: 1. Significant epigastric pain, which sounds peptic in nature that is not responsive to proton pump inhibitors. 2. Severe cardiomyopathy and three-vessel coronary artery disease. RECOMMENDATIONS: 1. Continue PPI. 2. We will discuss with Cardiology in the a.m. as far as ability to do endoscopy safely. Job ID: [id number]
--- NOTE | 2020-03-15 23:54 | CON ---
DATE OF CONSULTATION: 03/15/2020 HISTORY OF PRESENT ILLNESS: I am seeing Mrs. Vargas at our [facility] for electrophysiology consultation. Her problems are: 1. Nonsustained ventricular tachycardia. 2. Acute on chronic systolic congestive heart failure with ischemic cardiomyopathy. a. Severely reduced LVEF at 10% to 25% on most recent echo on 03/12/2020 with reduced right ventricle systolic function as well as mild to moderate left atrial enlargement, marked right atrial enlargement, mild MR, mild to moderate TR, moderate pulmonary hypertension. 3. Coronary artery disease. a. Left heart catheterization from 01/23/2020 shows 80% LAD, 50% circ, and 50% RCA with EF 40% to 45%, on medical management. 4. Type 1 diabetes. 5. Hypothyroidism. 6. History of depression. ALLERGIES: CLARITHROMYCIN, IODINE, MEPERIDINE. MEDICATIONS AT HOME: Included: 1. Effexor. 2. Feosol. 3. Calcium. 4. Coreg 3.125 mg twice a day. 5. Aspirin. 6. Corlanor 2.5 mg twice a day. 7. Entresto 24/26 mg one tablet twice a day. 8. Insulin glargine. 9. Clopidogrel. 10. Levothyroxine. 11. Furosemide. SUBJECTIVE: Ms. Vargas was admitted on the 11 of March with progressive dyspnea, CHF exacerbation. She was evaluated by Dr. Correa and Dr. Painting and now she is being treated with dobutamine. She seems to be doing fair with some diuresis also, although still not fully recovered. She has still mild PND and orthopnea besides continued IV dobutamine therapy. She was also started on p.o. amiodarone taper at 400 mg twice a day with Dr. Painting. While on this therapy, she developed more frequent runs of ventricular tachyarrhythmias and IV dobutamine was reduced. Since then, the palpitation has improved. She also had some nausea. She has received some Zofran. Currently, denies acute chest pains. No fever, chills, or cough. No stroke-like symptoms. No neurological deficits. REVIEW OF SYSTEMS: Rest of 12-point review of system otherwise unremarkable. PAST HISTORY: As above. She has initial diagnosis of acute heart failure in the mid January. At that point, Cardiovascular Surgery recommended medical therapy. Now, she is being considered for transfer to [facility] possibly for bypass surgery. SOCIAL HISTORY: Prior smoker, quit many years back. Denies EtOH or drug abuse. FAMILY HISTORY: Significant for coronary artery disease of the father in the 50s. Mother has stroke in the 60s. OBJECTIVE DATA: VITAL SIGNS: Blood pressure is 114/80, heart rate 86, respiratory rate is 16, temperature 97.7 degrees Fahrenheit. GENERAL: Alert and oriented young woman, in no apparent distress with elevated BMI of 34. NECK: Supple. Jugular veins are slightly distended. CHEST: Coarse without crackles. HEART: Sounds are regular to rate and rhythm. No murmur or gallop. ABDOMEN: Benign. Bowel sounds positive. EXTREMITIES: Lower extremities, 1+ edema bilaterally. NEUROLOGIC: The patient is nonfocal. MUSCULOSKELETAL: Without joint swelling or deformity. SKIN: Without rash. DATABASE: Reviewed the EKGs, it reveal right bundle-branch block pattern, normal axis, QTc is 148 milliseconds. Telemetry strips reviewed, revealing sinus rhythm with episodic wide-complex runs. It has become more frequent today, but has improved after using dobutamine. The wide-complex runs are monomorphic and clearly ventricular tachycardia in origin. LABORATORY DATA: White cell count is 9.8, hemoglobin 8, platelet count is 269. D-dimer 1.37. Sodium 130, potassium 4.7, BUN is 21, creatinine 1.12. ASSESSMENT AND PLAN: Mrs. Vargas is a pleasant 35-year-old woman with type 1 diabetes, advanced coronary artery disease and ischemic cardiomyopathy with severely reduced left ventricular ejection fraction, who is now on IV Dobutrex in an effort to improve her cardiac output and improve her fluid overload. She is still class 3 to 4 functional class. On the other hand, she developed a nonsustained wide-complex tachycardia while on significant IV inotrope, Dobutrex. This seems to have improved with decreasing the dose. Electrolytes seems to be in good range. She is also on p.o. amiodarone taper. QT is not severely prolonged on telemetry strips. The VT runs are more monomorphic, does not appear to be polymorphic in nature. Overall, I think she is high risk for usp ventricular arrhythmia recurrences. Short term, though adjusting IV inotropes likely will make her ventricular arrhythmias less frequent. Agree with continued short-term amiodarone use to suppress the ventricular arrhythmias. 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 She is going to be evaluated for that in [facility]. If that fails after adequate medical therapy completed, she may be considered for ICD implantation. In view of her baseline right bundle-branch block and widened QRS I personally review recent 2 D ECHO: no severe LV dyssynchrony seen. Doubt, that she would benefit from resynchronization therapy. For now, I agree with the current management. Thank you again for allowing me to participate in the care of this patient. Job ID: [id number] [facility]
[2020-03-16 04:53] LABS: Lactic Acid 1.9 mmol/L (0.5-2.2)
[2020-03-16 04:59] LABS: Anion Gap 16 mmol/L (10-20); BUN (Urea Nitrogen) 19 mg/dL (7.0-18.7); Calc. Creatinine Clearance 98 mL/min (70-130); Calcium 8.5 mg/dL (7.8-10.44); Carbon Dioxide 26 mmol/L (22-29); Chloride 93 mmol/L (98-107); Glucose 117 mg/dL (70-105); Magnesium 2.2 mg/dL (1.6-2.6); Potassium 4.4 mmol/L (3.5-5.1); Sodium 131 mmol/L (136-145)
[2020-03-16 05:00] LABS: Band 9 % (5-11); Burr Cells MODERATE= 6-15 cells (100X) (0-1/hpf); Eosinophils 8 % (0-10); Lymphocytes 16 % (21-51); MDiff Complete? YES; Mean Corpuscular HGB CONC 30.3 g/dL (32.0-36.0); Mean Corpuscular Hemoglobin 24.8 pg (27.0-31.0); Mean Platelet Volume 9.9 fL (7.4-10.4); Monocytes 8 % (0-10); Neutrophil 59 % (42-75); Ovalocytes SLIGHT = 2-5 cells (100X) (0-1/hpf); Platelet Count 279 thou/uL (130-400); Platelet Morphology Comment Appears Adequate; RBC Distribution Width 16.1 % (11.5-14.5); Red Blood Cell (RBC) Count 3.62 mill/uL (4.20-5.40); Target Cells MODERATE= 6-15 cells (100X) (0-1/hpf); White Blood Cell (WBC) Count 9.8 thou/uL (4.8-10.8)
[2020-03-16] MEDS: Levothyroxine Sodium 100 MCG TAB PO SCH (05:08)
[2020-03-16 08:43] VITALS: BP 110/55
[2020-03-16] MEDS: Potassium Chloride 10 MEQ in Premix Bag 1 BAG IVPB SCH ×2 (08:56→20:59)
[2020-03-16] MEDS: Sucralfate 1 GM/10 ML UDCUP PO SCH ×2 (08:56→21:02)
[2020-03-16] MEDS ORDERED: Potassium Chloride 10 MEQ in Premix Bag 1 BAG IVPB SCH (09:00)
[2020-03-16] MEDS: Albumin 25% 25 GM/100 ML BOT IVPB SCH ×2 (09:02→20:57)
--- NOTE | 2020-03-16 09:04 | PDOC.HOSPP ---
- Subjective Encounter Date: 03/16/20 Encounter Time: 08:30 Subjective: Ms. Vargas is a 35 y old female with a past medical history of 3 vessel ischemic cardiomyopathy Type I DM, hypothyroidism that is being monitored post decompensation of systolic/diastolic heart failure and ventricular tachycardia. Her labs and vitals are currently stable. She is currently unable to eat due to excessive nausea and vomiting. - Objective Vital Signs & Weight: Vital Signs (12 hours) Temp Pulse Resp BP Pulse Ox 03/16/20 08:28 98.0 F 95 16 110/55 L 100 03/16/20 03:43 95 03/16/20 03:19 98.6 F 90 16 114/61 95 03/16/20 00:00 136/73 Weight Admit Weight 85.1 kg Weight 83.461 kg Most Recent Monitor Data Heart Rate from ECG 83 NIBP 116/76 NIBP BP-Mean 89 Respiration from ECG 20 SpO2 99 I&O: 03/15/20 03/16/20 03/17/20 06:59 06:59 06:59 Intake Total 812 900 Output Total 1150 1250 Balance -338 -350 Result Diagrams: 03/16/20 04:07 03/16/20 04:07 Additional Labs: Accuchecks 03/16/20 03/15/20 03/15/20 06:15 20:53 16:34 POC Glucose 100 113 H 180 H 03/15/20 03/15/20 11:14 09:57 POC Glucose 92 97 Hospitalist ROS - Review of Systems Constitutional: reports: weakness. denies: fever, chills Respiratory: denies: shortness of breath, pleuritic pain Cardiovascular: reports: palpitations (off an on), edema. denies: chest pain, light headedness Gastrointestinal: reports: nausea, vomiting, abdominal pain. denies: diarrhea Genitourinary: reports: retention - Medication Medications: Active Medications Generic Name Dose Route Start Last Admin Trade Name Freq PRN Reason Stop Dose Admin Acetaminophen 650 mg 03/13/20 23:29 03/13/20 23:58 Acetaminophen 325 Mg Tab PO 650 mg Q6H PRN Administration Headache/Fever or Pain Amiodarone HCl 400 mg 03/14/20 21:00 03/15/20 20:33 Amiodarone 200 Mg Tab PO 400 mg BID EDMOND Administration Aspirin 81 mg 03/11/20 09:00 03/15/20 07:44 Aspirin 81 Mg Enteric Coated Tablet PO 81 mg DAILY EDMOND Administration Atorvastatin Calcium 80 mg 03/11/20 09:00 03/15/20 07:45 Atorvastatin Calcium 40 Mg Tab PO 80 mg DAILY EDMOND Administration Calcium Carbonate 1,000 mg 03/11/20 19:36 03/15/20 20:39 Calcium Carbonate 500 Mg Chewtab PO 1,000 mg Q4H PRN Administration Heartburn or Indigestion Clopidogrel Bisulfate 75 mg 03/11/20 09:00 03/15/20 07:47 Clopidogrel Bisulfate 75 Mg Tab PO 75 mg DAILY EDMOND Administration Cosyntropin 250 mcg 03/12/20 13:00 03/12/20 13:16 Cosyntropin 250 Mcg Vial SLOW IVP 250 mcg WILLCALL EDMOND Administration Enoxaparin Sodium 40 mg 03/11/20 09:00 03/15/20 07:43 Enoxaparin Sodium 40 Mg/0.4 Ml Syringe SC 40 mg 0900 EDMOND Administration Fludrocortisone Acetate 0.1 mg 03/13/20 09:00 03/15/20 07:47 Fludrocortisone Acetate 0.1 Mg Tab PO 0.1 mg DAILY EDMOND Administration Hydrocortisone 10 mg 03/13/20 09:00 03/15/20 07:46 Hydrocortisone 10 Mg Tablet PO 10 mg QAM EDMOND Administration Hydrocortisone 5 mg 03/12/20 21:00 03/15/20 20:34 Hydrocortisone 10 Mg Tablet PO 5 mg QPM EDMOND Administration Dobutamine HCl/Dextrose 250 mls @ 12.72 mls/hr 03/14/20 09:30 03/15/20 19:45 Dobutamine 500 Mg/250 Ml IVPB 250 mls INF EDMOND Administration 5 MCG/KG/MIN Insulin Glargine 20 units/ 0.2 mls @ 0 mls/hr 03/15/20 09:00 03/15/20 08:31 Miscellaneous Medication SC 0.2 mls QAM EDMOND Administration Insulin Human Lispro 0 units 03/14/20 07:28 03/15/20 06:09 Humalog 300 Units/3 Ml Vial SC 3 unit .AGGRESSIVE SLIDING PRN Administration Aggressive Correctional Scale Insulin Human Lispro 0 units 03/14/20 07:28 03/14/20 20:35 Humalog 300 Units/3 Ml Vial SC 3 unit .BEDTIME SLIDING SC PRN Administration Bedtime Correctional Scale Insulin Human Lispro 6 units 03/15/20 08:00 03/15/20 17:48 Humalog 300 Units/3 Ml Vial SC 6 unit TID-WM EDMOND Administration Ivabradine 2.5 mg 03/11/20 21:00 03/15/20 20:37 Ivabradine 5 Mg Tab PO 2.5 mg BID EDMOND Administration Levothyroxine Sodium 100 mcg 03/13/20 06:00 03/16/20 05:08 Levothyroxine Sodium 100 Mcg Tab PO 100 mcg 0600 EDMOND Administration Pantoprazole Sodium 40 mg 03/14/20 21:00 03/15/20 20:37 Pantoprazole 40 Mg Tab PO 40 mg BID EDMOND Administration Sodium Chloride 10 ml 03/12/20 21:00 03/15/20 20:38 Flush - Normal Saline 10 Ml Syringe IVF 10 ml Q12HR EDMOND Administration Sucralfate 1 gm 03/15/20 21:00 03/15/20 20:38 Sucralfate 1 Gm/10 Ml Udcup PO 1 gm BID EDMOND Administration Venlafaxine HCl 37.5 mg 03/12/20 09:00 03/15/20 08:30 Venlafaxine Hcl 37.5 Mg Tab PO 37.5 mg DAILY EDMOND Administration Hospitalist Exam Vitals: Vital Signs (12 hours) Temp Pulse Resp BP Pulse Ox 03/16/20 08:28 98.0 F 95 16 110/55 L 100 03/16/20 03:43 95 03/16/20 03:19 98.6 F 90 16 114/61 95 03/16/20 00:00 136/73 Weight Admit Weight 85.1 kg Weight 83.461 kg Most Recent Monitor Data Heart Rate from ECG 83 NIBP 116/76 NIBP BP-Mean 89 Respiration from ECG 20 SpO2 99 General Appearance: NAD, awake alert Eye: PERRL, anicteric sclera ENT: normocephalic atraumatic, dry oral mucosa Neck: supple, JVD Neck - other findings: not measure but seen half way up sternocleidomastoid muscle. Heart: diminshed peripheral pulses Heart - other findings: S3 and S4 heard on auscultation Respiratory: CTAB, no wheezes, no rales, no ronchi, normal chest expansion Gastrointestinal: soft, non-tender, non-distended, normal bowel sounds, no palpable masses, no hepatomegaly, no splenomegaly Extremities: no cyanosis, no clubbing Psychiatric: normal affect, normal behavior, lethargic Hosp A/P (1) Acute on chronic combined systolic (congestive) and diastolic (congestive) heart failure Code(s): I50.43 - ACUTE ON CHRONIC COMBINED SYSTOLIC AND DIASTOLIC HRT FAIL Status: Acute (2) Hyponatremia Code(s): E87.1 - HYPO-OSMOLALITY AND HYPONATREMIA Status: Acute (3) CAD (coronary artery disease) Code(s): I25.10 - ATHSCL HEART DISEASE OF [place] CORONARY ARTERY W/O ANG PCTRS Status: Acute Plan: Continue Statin and Lisinopril. Control arrythmias and maintian status of heart failure. (4) Diabetes mellitus type 1 Status: Acute Plan: COntinue with insulin. Further medication control. (5) Hypothyroidism Code(s): E03.9 - HYPOTHYROIDISM, UNSPECIFIED Status: Chronic (6) Hypomagnesemia Code(s): E83.42 - HYPOMAGNESEMIA Status: Acute
[2020-03-16] MEDS ORDERED: PROPOFOL 200 MG/20 ML VIAL ONE (09:08)
[2020-03-16] MEDS ORDERED: Lidocaine 1% PF 5 ML VIAL ONE (09:08)
[2020-03-16] MEDS ORDERED: EPINEPHrine 1 MG/10 ML Abboject SYRINGE ONE (09:22)
[2020-03-16] MEDS ORDERED: Sodium Bicarb 50 MEQ/50 ML Abboject 8.4% SYRINGE ONE ×4 (09:22→23:33)
[2020-03-16] MEDS ORDERED: Calcium Chloride 1 GM/10 ML Abboject SYRINGE ONE (09:22)
[2020-03-16] MEDS ORDERED: Furosemide 100 MG/10 ML VIAL SLOW IVP SCH (10:00)
[2020-03-16] MEDS ORDERED: Ketamine 50 MG/ML (10ML VIAL) ONE (10:19)
[2020-03-16] MEDS ORDERED: Furosemide 20 MG/2 ML VIAL ONE ×2 (11:08→11:52)
--- NOTE | 2020-03-16 11:16 | PRG ---
DATE OF SERVICE: 03/16/2020 SUBJECTIVE: Ms. Macie Vargas had a variable day. She had continued nausea. She did not feel good during the mid day. Taking liothyronine, it caused her more GI upset and then afterwards she had several bouts of nonsustained ventricular tachycardia with monomorphic in pattern with the longest being 13 beats, so liothyronine was stopped. Due to her hemoglobin at 8 and known ischemia and also ventricular tachycardia, she received blood transfusion of 1 unit. After receiving a blood transfusion of 1 unit, her blood pressure increased. Since then, there has been no more ventricular tachycardia. However, her GI symptoms persisted. She still had persistent nausea and persistent pain in her mid abdominal region. In fact, this is the pain that caused her to sit up. If she lays down, that is where the pain occurs. She is actually not short of breath. She is breathing well. REVIEW OF SYSTEMS: GENERAL: There are no fever, chills, productive cough. HEENT: Shows no change in vision, hearing, or swallowing. PULMONARY: Please see HPI. CARDIAC: She did have a nonsustained ventricular tachycardia yesterday. However overnight she was quiet, there was no ventricular tachycardia. GI: Please see HPI. : She is able to urinate on her own. MUSCULOSKELETAL: There is no complaint of muscle or joint pains. INTEGUMENT: There is no skin breakdown. NEUROLOGIC: There are no focal weaknesses or deficits. CURRENT MEDICATIONS: 1. Amiodarone 400 mg b.i.d. for 10 g load. 2. Aspirin 81 mg daily. 3. Atorvastatin 80 mg at bedtime. 4. Tums 1 g q.4 hours as needed. 5. Plavix 75 mg daily. 6. Dobutamine currently at 5 mcg/kg/minute. 7. Enoxaparin 40 mg subcutaneous daily. 8. Fludrocortisone 0.1 mg daily. 9. Hydrocortisone 10 mg in the morning and 5 mg in the afternoon. 10. 20 units of glargine per day. 11. 6 units of lispro insulin t.i.d. a.c. and plus a sliding scale insulin. 12. Ivabradine 2.5 mg b.i.d. 13. Levothyroxine 100 mcg daily. 14. Protonix 40 mg b.i.d. 15. Potassium chloride 10 mEq IV once daily. 16. Sucralfate 1 g b.i.d. 17. Effexor at 37.5 mg daily. PHYSICAL EXAMINATION: Telemetry was reviewed. Since yesterday afternoon, she is in sinus rhythm with right bundle branch block. There was no more ventricular tachycardia after blood transfusion. VITAL SIGNS: Her most current vital signs are; heart rate 84, blood pressure 114/61. GENERAL: She is alert and conversational, reclining comfortably in bed. She is not short of breath. However, she is wearing oxygen. HEENT: Show EOMI. Oropharynx is benign with moist mucosa. NECK: Necks veins little bit lower than yesterday at about 13 cm. PULMONARY: There is good air movement bilaterally. However, there is slight crackle at the right base. CARDIAC: Normal rate and rhythm. There is S1, S2. There is S4 gallop at the left upper sternal border. There is also S3 gallop at the apex. There is 2/6 holosystolic murmur at the apex with radiation to the left axilla. There is also 2/6 holosystolic murmur at the left upper sternal border. She has tricuspid regurgitation and mitral regurgitation along with stiff and dilated ventricle. ABDOMEN: Soft. Positive bowel sounds. Mild tenderness in the mid gastric region. EXTREMITIES: Lower extremity has about 0.5 cm or more from her feet almost towards her knee is about the same as yesterday. LABORATORY DATA: Her inputs and outputs from yesterday were 900 mL in and 1250 mL out, so she is net negative though there is one dose of Lasix. ASSESSMENT: This 35-year-old lady has stabilized from a cardiac perspective. However, her GI symptoms persists. She most likely resides [place] [employer] stage D and [place] Heart Association class 4 heart failure with reduced ejection fraction. Her LVEF is only 20%. She also has a right heart dysfunction/cor pulmonale. She has paroxysmal ventricular tachycardia. Currently dobutamine 5 mcg/kg/minute seemed to be sufficient. Combination of amiodarone and ivabradine seemed to be keeping her heart rate and ventricular tachycardia under control. Also amiodarone can cause nausea, but with her ventricular tachycardia, this is something that needs to be continued; the alternative is mexiletine. Mexiletine has known severe side effects of causing abdominal pain. So that may not be a good idea on her. It will be excellent idea if the EGD is done to find out the pathology in her stomach and duodenal region before anything else is pursued. Currently this is her main complaint. I have spoken with [facility] again last night, their hospital is still full. They will get her in as soon as possible. They offered consideration of transferring to [facility]. At this point, we will stay with [facility] because with going to [facility], there will be another set of changes and the waiting time may not be any better. Please see the following for my recommendation. RECOMMENDATION: 1. Continue dobutamine at 5 mcg/kg/minute. Please change the KCl 10 mEq to twice a day with 1st dose now. 2. Please give Lasix 60 mg IV one dose sometime after the 10 mEq KCl is given. I will inform Dr. Nicholas Knight it is acceptable to proceed with EGD because this would decide on how to treat her. 3. We will need to watch her hemoglobin. We will keep her hemoglobin 9 or higher. Apparently, increased oxygen delivery will decrease chances of arrhythmia also. 4. We will decide on the use of mexiletine in place of amiodarone after EGD has been done. It has been a pleasure taking care of Ms. Macie Vargas. If you have any questions, please give me a call. The total visitation time today is 40 minutes. Job ID: [id number] MTDD
[2020-03-16] MEDS ORDERED: Norepinephrine 4 MG/4 ML VIAL ONE (11:26)
[2020-03-16] MEDS ORDERED: Furosemide 40 MG/4 ML VIAL ONE (11:52)
[2020-03-16 12:45] LABS: #Basophils 0.1 thou/uL (0.0-0.2); #Eosinphils 0.8 thou/uL (0.0-0.7); #Monocytes 0.4 thou/uL (0.11-0.59); #Neutrophils 6.3 thou/uL (1.40-6.50); %Basophils 0.5 % (0.0-1.0); %Eosinophils 6.7 % (0.0-10.0); %Lymphocytes 34.8 % (21.0-51.0); %Monocytes 3.7 % (0.0-10.0); %Neutrophils 54.3 % (42.0-75.0); Hemoglobin 8.6 g/dL (12.0-16.0); Mean Corpuscular HGB CONC 30.1 g/dL (32.0-36.0); Mean Corpuscular Hemoglobin 25.3 pg (27.0-31.0); Mean Platelet Volume 10.4 fL (7.4-10.4); Platelet Count 190 thou/uL (130-400); White Blood Cell (WBC) Count 11.6 thou/uL (4.8-10.8)
[2020-03-16] MEDS ORDERED: Vasopressin 20 UNIT, Admixture Fee 1 EACH in Sodium Chloride 0.9% 50 ML IV SCH (12:45)
--- NOTE | 2020-03-16 12:51 | PDOC.HOSPP ---
- Subjective Encounter Date: 03/16/20 Encounter Time: 12:48 Subjective: Patient seen due to code while in Endoscopy. She had an episode of laryngeal spasm, and this resulted in a hypoxic episode and cardiac arrest. - Objective Vital Signs & Weight: Vital Signs (12 hours) Temp Pulse Resp BP Pulse Ox 03/16/20 12:29 125 H 03/16/20 08:28 98.0 F 95 16 110/55 L 100 03/16/20 03:43 95 03/16/20 03:19 98.6 F 90 16 114/61 95 Weight Admit Weight 187 lb 9.814 oz Weight 184 lb Most Recent Monitor Data Heart Rate from ECG 83 NIBP 116/76 NIBP BP-Mean 89 Respiration from ECG 20 SpO2 99 I&O: 03/15/20 03/16/20 03/17/20 06:59 06:59 06:59 Intake Total 812 900 Output Total 1150 1250 Balance -338 -350 Result Diagrams: 03/16/20 15:37 03/16/20 15:37 Additional Labs: Accuchecks 03/16/20 03/16/20 03/15/20 11:01 06:15 20:53 POC Glucose 175 H 100 113 H 03/15/20 16:34 POC Glucose 180 H Hospitalist ROS - Medication Medications: Active Medications Generic Name Dose Route Start Last Admin Trade Name Freq PRN Reason Stop Dose Admin Acetaminophen 650 mg 03/13/20 23:29 03/13/20 23:58 Acetaminophen 325 Mg Tab PO 650 mg Q6H PRN Administration Headache/Fever or Pain Albumin Human 25 gm 03/16/20 09:00 03/16/20 09:02 Albumin 25% 25 Gm/100 Ml Bot IVPB 03/17/20 09:01 25 gm Q12HR EDMOND Administration Amiodarone HCl 400 mg 03/14/20 21:00 03/15/20 20:33 Amiodarone 200 Mg Tab PO 400 mg BID EDMOND Administration Aspirin 81 mg 03/11/20 09:00 03/15/20 07:44 Aspirin 81 Mg Enteric Coated Tablet PO 81 mg DAILY EDMOND Administration Atorvastatin Calcium 80 mg 03/11/20 09:00 03/15/20 07:45 Atorvastatin Calcium 40 Mg Tab PO 80 mg DAILY EDMOND Administration Calcium Carbonate 1,000 mg 03/11/20 19:36 03/15/20 20:39 Calcium Carbonate 500 Mg Chewtab PO 1,000 mg Q4H PRN Administration Heartburn or Indigestion Clopidogrel Bisulfate 75 mg 03/11/20 09:00 03/15/20 07:47 Clopidogrel Bisulfate 75 Mg Tab PO 75 mg DAILY EDMOND Administration Cosyntropin 250 mcg 03/12/20 13:00 03/12/20 13:16 Cosyntropin 250 Mcg Vial SLOW IVP 250 mcg WILLCALL EDMOND Administration Enoxaparin Sodium 40 mg 03/11/20 09:00 03/15/20 07:43 Enoxaparin Sodium 40 Mg/0.4 Ml Syringe SC 40 mg 0900 EDMOND Administration Fludrocortisone Acetate 0.1 mg 03/13/20 09:00 03/15/20 07:47 Fludrocortisone Acetate 0.1 Mg Tab PO 0.1 mg DAILY EDMOND Administration Hydrocortisone 10 mg 03/13/20 09:00 03/15/20 07:46 Hydrocortisone 10 Mg Tablet PO 10 mg QAM EDMOND Administration Hydrocortisone 5 mg 03/12/20 21:00 03/15/20 20:34 Hydrocortisone 10 Mg Tablet PO 5 mg QPM EDMOND Administration Dobutamine HCl/Dextrose 250 mls @ 12.72 mls/hr 03/14/20 09:30 03/15/20 19:45 Dobutamine 500 Mg/250 Ml IVPB 250 mls INF EDMOND Administration 5 MCG/KG/MIN Insulin Glargine 20 units/ 0.2 mls @ 0 mls/hr 03/15/20 09:00 03/15/20 08:31 Miscellaneous Medication SC 0.2 mls QAM EDMOND Administration Potassium Chloride 10 meq/ 100 mls @ 100 mls/hr 03/16/20 09:00 03/16/20 08:56 Device IVPB 100 mls Q12HR EDMOND Administration Insulin Human Lispro 0 units 03/14/20 07:28 03/15/20 06:09 Humalog 300 Units/3 Ml Vial SC 3 unit .AGGRESSIVE SLIDING PRN Administration Aggressive Correctional Scale Insulin Human Lispro 0 units 03/14/20 07:28 03/14/20 20:35 Humalog 300 Units/3 Ml Vial SC 3 unit .BEDTIME SLIDING SC PRN Administration Bedtime Correctional Scale Insulin Human Lispro 6 units 03/15/20 08:00 03/15/20 17:48 Humalog 300 Units/3 Ml Vial SC 6 unit TID-WM EDMOND Administration Ivabradine 2.5 mg 03/11/20 21:00 03/15/20 20:37 Ivabradine 5 Mg Tab PO 2.5 mg BID EDMOND Administration Levothyroxine Sodium 100 mcg 03/13/20 06:00 03/16/20 05:08 Levothyroxine Sodium 100 Mcg Tab PO 100 mcg 0600 EDMOND Administration Pantoprazole Sodium 40 mg 03/14/20 21:00 03/15/20 20:37 Pantoprazole 40 Mg Tab PO 40 mg BID EDMOND Administration Sodium Chloride 10 ml 03/12/20 21:00 03/15/20 20:38 Flush - Normal Saline 10 Ml Syringe IVF 10 ml Q12HR EDMOND Administration Sucralfate 1 gm 03/15/20 21:00 03/16/20 08:56 Sucralfate 1 Gm/10 Ml Udcup PO 1 gm BID EDMOND Administration Venlafaxine HCl 37.5 mg 03/12/20 09:00 03/15/20 08:30 Venlafaxine Hcl 37.5 Mg Tab PO 37.5 mg DAILY EDMOND Administration Hospitalist Exam Vitals: Vital Signs (12 hours) Temp Pulse Resp BP Pulse Ox 03/16/20 12:29 125 H 03/16/20 08:28 98.0 F 95 16 110/55 L 100 03/16/20 03:43 95 03/16/20 03:19 98.6 F 90 16 114/61 95 Weight Admit Weight 187 lb 9.814 oz Weight 184 lb Most Recent Monitor Data Heart Rate from ECG 83 NIBP 116/76 NIBP BP-Mean 89 Respiration from ECG 20 SpO2 99 Eye: PERRL, anicteric sclera Heart: RRR, no murmur, no gallops, no rubs, normal peripheral pulses Respiratory: rales Extremities: 1+ LE edema Hosp A/P (1) Cardiac arrest Code(s): I46.9 - CARDIAC ARREST, CAUSE UNSPECIFIED Status: Acute (2) Acute on chronic combined systolic (congestive) and diastolic (congestive) heart failure Code(s): I50.43 - ACUTE ON CHRONIC COMBINED SYSTOLIC AND DIASTOLIC HRT FAIL Status: Acute (3) CAD (coronary artery disease) Code(s): I25.10 - ATHSCL HEART DISEASE OF [place] CORONARY ARTERY W/O ANG PCTRS Status: Acute (4) Diabetes mellitus type 1 Status: Acute (5) Hypothyroidism Code(s): E03.9 - HYPOTHYROIDISM, UNSPECIFIED Status: Chronic (6) Hyponatremia Code(s): E87.1 - HYPO-OSMOLALITY AND HYPONATREMIA Status: Acute (7) Hypomagnesemia Code(s): E83.42 - HYPOMAGNESEMIA Status: Acute - Plan * Arrest during Endoscopy- apparently induced by laryngeal spasm * Dr. Painting is at the bedside giving the orders * She is intubated and has been moved to the ICU * Critical care consult has been obtain * She has been resuscitated, acidosis has been corrected, and she has been placed on Levophed, Vasopressin, Epinephrine, and Dobutamine drips * Will place her on a low dose Lantus, given she has type 1 diabetes, as well as a SSI- check her blood glucose frequently q2hr. If her blood glucose rises, then will have a low threshold to place her on an insulin drip * Hypothyroidism- levothyroxine can be transitioned to IV at 2/3 -3/4 the original dose * Change Protonix to IV * She is on stress dose steroids * Nutritional need to be assessed in the AM * The patient mother was at bedsideDr. Painting has spoken to her and I have also spoken with her regarding the patient condition. Her mother affirms that she would like her daughter to remain a full code.
[2020-03-16] MEDS ORDERED: Norepinephrine 8 MG/0.9% NS 250 ML ONE (13:02)
[2020-03-16 13:05] LABS: Actual Bicarbonate (HCO3a) 19.9 mEq/L (22-28); Base Excess (BEa) -8.1 mEq/L (-2.0 to +3.0); CO2 Tension 52.6 mmHg (35.0-45.0); Calcium, Ionized (arterial) 1.54 mmol/L (1.12-1.30); Carboxyhemoglobin (COHb) 0.6 gm% (0.0-3.0); Hemoglobin (Hb) 9.8 g/dL (12.0-16.0); Potassium - ABG Lab 3.68 mmol/L (3.70-5.30)
[2020-03-16 13:13] LABS: Anion Gap 22 mmol/L (10-20); BUN (Urea Nitrogen) 18 mg/dL (7.0-18.7); Calc. Creatinine Clearance 85 mL/min (70-130); Calcium 11.1 mg/dL (7.8-10.44); Carbon Dioxide 28 mmol/L (22-29); Chloride 93 mmol/L (98-107); Glucose 173 mg/dL (70-105); Potassium 3.7 mmol/L (3.5-5.1); Sodium 139 mmol/L (136-145)
--- NOTE | 2020-03-16 13:47 | PDOC.EP ---
- Subjective Date: 03/16/20 Time: 13:41 Interval History: Developed cardiorespiratory arrest during Endoscopy. Now intubated in ICU. - Review of Systems ROS unobtainable: due to endotracheal tube - Objective Allergies/Adverse Reactions: Allergies Allergy/AdvReac Type Severity Reaction Status Date / Time clarithromycin [From Biaxin] Allergy Verified 03/11/20 02:31 iodine Allergy Verified 03/11/20 02:31 meperidine [From Demerol] Allergy Verified 03/11/20 02:31 Current Medications Acetaminophen (Acetaminophen 325 Mg Tab) 650 mg PO Q6H PRN PRN Reason: Headache/Fever or Pain Last Admin: 03/13/20 23:58 Dose: 650 mg Documented by: Albumin Human (Albumin 25% 25 Gm/100 Ml Bot) 25 gm IVPB Q12HR [facility] Stop: 03/17/20 09:01 Last Admin: 03/16/20 09:02 Dose: 25 gm Documented by: Amiodarone HCl (Amiodarone 200 Mg Tab) 400 mg PO BID [facility] Last Admin: 03/15/20 20:33 Dose: 400 mg Documented by: Aspirin (Aspirin 81 Mg Enteric Coated Tablet) 81 mg PO DAILY [facility] Last Admin: 03/15/20 07:44 Dose: 81 mg Documented by: Atorvastatin Calcium (Atorvastatin Calcium 40 Mg Tab) 80 mg PO DAILY [facility] Last Admin: 03/15/20 07:45 Dose: 80 mg Documented by: Calcium Carbonate (Calcium Carbonate 500 Mg Chewtab) 1,000 mg PO Q4H PRN PRN Reason: Heartburn or Indigestion Last Admin: 03/15/20 20:39 Dose: 1,000 mg Documented by: Clopidogrel Bisulfate (Clopidogrel Bisulfate 75 Mg Tab) 75 mg PO DAILY [facility] Last Admin: 03/15/20 07:47 Dose: 75 mg Documented by: Cosyntropin (Cosyntropin 250 Mcg Vial) 250 mcg SLOW IVP WILLCALL [facility] Last Admin: 03/12/20 13:16 Dose: 250 mcg Documented by: Dextrose/Water (Dextrose 50% Abboject 50 Ml Syringe) 25 gm SLOW IVP PRN PRN PRN Reason: Hypoglycemia Enoxaparin Sodium (Enoxaparin Sodium 40 Mg/0.4 Ml Syringe) 40 mg SC 0900 [facility] Last Admin: 03/15/20 07:43 Dose: 40 mg Documented by: Fludrocortisone Acetate (Fludrocortisone Acetate 0.1 Mg Tab) 0.1 mg PO DAILY [facility] Last Admin: 03/15/20 07:47 Dose: 0.1 mg Documented by: Glucagon (Glucagon 1 Mg/Ml Vial) 1 mg IM PRN PRN PRN Reason: Hypoglycemia Hydrocortisone (Hydrocortisone 10 Mg Tablet) 10 mg PO QAM [facility] Last Admin: 03/15/20 07:46 Dose: 10 mg Documented by: Hydrocortisone (Hydrocortisone 10 Mg Tablet) 5 mg PO QPM [facility] Last Admin: 03/15/20 20:34 Dose: 5 mg Documented by: Dextrose/Water (D5w) 1,000 mls @ 0 mls/hr IV .Q0M PRN PRN Reason: Hypoglycemia Dobutamine HCl/Dextrose (Dobutamine 500 Mg/250 Ml) 250 mls @ 12.72 mls/hr IVPB INF [facility] Last Admin: 03/15/20 19:45 Dose: 250 mls Documented by: Insulin Glargine 20 units/ (Miscellaneous Medication) 0.2 mls @ 0 mls[facility] [place] Last Admin: 03/15/20 08:31 Dose: 0.2 mls Documented by: Potassium Chloride 10 meq/ (Device) 100 mls @ 100 mls/hr IVPB Q12HR [facility] Last Admin: 03/16/20 08:56 Dose: 100 mls Documented by: Vasopressin 20 unit/Miscellaneous Medication 1 each/ Sodium Chloride 51 mls @ 0 mls/hr IV INF [facility]; Protocol Epinephrine 4 mg/ Dextrose/ (Water) 254 mls @ 0 mls/hr IV INF [facility]; Protocol Insulin Human Lispro (Humalog 300 Units/3 Ml Vial) 0 units SC .AGGRESSIVE SLIDING PRN PRN Reason: Aggressive Correctional Scale Last Admin: 03/15/20 06:09 Dose: 3 unit Documented by: Insulin Human Lispro (Humalog 300 Units/3 Ml Vial) 0 units SC .BEDTIME SLIDING SC PRN PRN Reason: Bedtime Correctional Scale Last Admin: 03/14/20 20:35 Dose: 3 unit Documented by: Insulin Human Lispro (Humalog 300 Units/3 Ml Vial) 6 units SC TID-WM [facility] Last Admin: 03/15/20 17:48 Dose: 6 unit Documented by: Ivabradine (Ivabradine 5 Mg Tab) 2.5 mg PO BID [facility] Last Admin: 03/15/20 20:37 Dose: 2.5 mg Documented by: Levothyroxine Sodium (Levothyroxine Sodium 100 Mcg Tab) 100 mcg PO 0600 [facility] Last Admin: 03/16/20 05:08 Dose: 100 mcg Documented by: Ondansetron HCl (Ondansetron Pf 4 Mg/2 Ml Vial) 4 mg SLOW IVP Q8H PRN PRN Reason: Nausea/Vomiting Pantoprazole Sodium (Pantoprazole 40 Mg Tab) 40 mg PO BID [facility] Last Admin: 03/15/20 20:37 Dose: 40 mg Documented by: Sodium Chloride (Flush - Normal Saline 10 Ml Syringe) 10 ml IVF Q12HR [facility] Last Admin: 03/15/20 20:38 Dose: 10 ml Documented by: Sodium Chloride (Flush - Normal Saline 10 Ml Syringe) 10 ml IVF PRN PRN PRN Reason: Saline Flush Sodium Chloride (Flush - Normal Saline 10 Ml Syringe) 10 ml IVF PRN PRN PRN Reason: Saline Flush Sucralfate (Sucralfate 1 Gm/10 Ml Udcup) 1 gm PO BID [facility] Last Admin: 03/16/20 08:56 Dose: 1 gm Documented by: Venlafaxine HCl (Venlafaxine Hcl 37.5 Mg Tab) 37.5 mg PO DAILY [facility] Last Admin: 03/15/20 08:30 Dose: 37.5 mg Documented by: Vital Signs & Weight: Vital Signs Temp Pulse Resp BP Pulse Ox 03/16/20 12:29 125 H 03/16/20 08:28 98.0 F 95 16 110/55 L 100 03/16/20 03:43 95 03/16/20 03:19 98.6 F 90 16 114/61 95 Admit Weight 187 lb 9.814 oz Weight 184 lb I/O: I/O 03/15/20 03/16/20 03/17/20 06:59 06:59 06:59 Intake Total 812 900 Output Total 1150 1250 0 Balance -338 -350 0 - Physical Exam General: other (Imntubated, poorly responsive.) HEENT: pallor Neck: JVD/HJR Cardiology: regular rate, tachycardia Lungs: clear to auscultation, no wheezes, no rales Neurology: no lateralizing findings Abdomen: unremarkable, soft, non-tender Extremities: weak pulses - Labs Result Diagrams: 03/16/20 12:00 03/16/20 12:00 - EKG Interpretation EKG Method: Telemetry (SR. RBBB, less VT runs- pre procedure. EKG post arrest w RBBB, wide QRS 184ms, QTc 580ms. .) EKG shows: Sinus rhythm - Assessment/Plan Assessment/Plan: Mrs. Vargas is a pleasant 35-year-old woman with type 1 diabetes, advanced coronary artery disease and ischemic cardiomyopathy with severely reduced left ventricular ejection fraction, who is now on IV Dobutrex in an effort to improve her cardiac output and improve her fluid overload. She is still class 3 to 4 functional class. On the other hand, she developed a nonsustained wide-complex tachycardia while on significant IV inotrope, Dobutrex. Impression: 1. Nonsustained ventricular tachycardia. 2. Acute on chronic systolic congestive heart failure with ischemic card iomyopathy. a. Severely reduced LVEF at 10% to 25% on most recent echo on 03/12/2020 with reduced right ventricle systolic function as well as mild to moderate left atrial enlargement, marked right atrial enlargement, mild MR, mild to moderate TR, moderate pulmonary hypertension. 3. Coronary artery disease. a. Left heart catheterization from 01/23/2020 shows 80% LAD, 50% circ, and 50% RCA with EF 40% to 45%, on medical management. 4. Type 1 diabetes. 5. Hypothyroidism. 6. History of depression. 7. Cardiresp arresrt during EGD/sedation on 03/16/20. ASSESSMENT AND PLAN: NS-VT seems to have improved with decreasing the dobutrex dose. Electrolytes seems to be in good range. Continue IV/p.o. amiodarone taper. Momnitor QT for now it is not severely prolonged on telemetry strips. Overall, I think she is high risk for shot coat tender ventricular arrhythmia recurrences. Short term, though adjusting IV inotropes likely will make her ventricular arrhythmias less frequent. Agree with continued short-term amiodarone use to suppress the ventricular arrhythmias. care home, likely she would be best served by revascularization if that is even feasible. She is planned to be evaluated for heart transplant in [facility]. She may be considered for ICD implantation after 3 months of optimized medical therapy if she improves from class 4 HF status. In view of her baseline right bundle-branch block and widened QRS I personally review recent 2 D ECHO: no severe LV dyssynchrony seen. Doubt, that she would benefit from resynchronization therapy. 03/16/20: Acute cardio pulmomnary arrest during EGD requiring repeted resuscitation, intubation, high dose epi/norpei/dobutrex drip for pressure support. Episodic bradycardia responding to epi drip. Acidosis is being corrected with IV bicarb. No VT so far. Poor prognosis. Continue supportive care. Discussed with RN/ family I agree with the current management. No new EP intervention is planned.
[2020-03-16] MEDS: HumaLOG 300 UNITS/3 ML VIAL SC SCH ×3 (13:50→23:42)
[2020-03-16] MEDS: Enoxaparin Sodium 40 MG/0.4 ML SYRINGE SC SCH (13:51)
[2020-03-16] MEDS: Amiodarone 200 MG TAB PO SCH ×2 (13:51→20:57)
[2020-03-16] MEDS: Aspirin 81 mg Enteric Coated Tablet PO SCH (13:51)
[2020-03-16] MEDS: Fludrocortisone Acetate 0.1 MG TAB PO SCH (13:51)
[2020-03-16] MEDS: Clopidogrel Bisulfate 75 MG TAB PO SCH (13:51)
[2020-03-16] MEDS: Atorvastatin Calcium 40 MG TAB PO SCH (13:51)
--- NOTE | 2020-03-16 13:51 | RAD ---
PORTABLE SUPINE CHEST: 03/16/20 INDICATIONS: Code blue. COMPARISON: 03/10/20. ET tube has been placed with tip just above the anahy. Diffuse bilateral hazy infiltrates are seen throughout both lungs. Heart size appears stable but is p oorly evaluated. I cannot exclude small effusions. IMPRESSION: Diffuse bilateral hazy infiltrates. POS: [facility]
[2020-03-16] MEDS: Ivabradine 5 MG TAB PO SCH ×2 (13:52→21:01)
[2020-03-16] MEDS: Hydrocortisone 10 mg Tablet PO SCH ×2 (13:52→21:03)
[2020-03-16] MEDS: Insulin Glargine 20 UNITS in Pre-Filled Syringe 1 EACH SC SCH (13:52)
[2020-03-16] MEDS: Venlafaxine HCl 37.5 MG TAB PO SCH (13:53)
[2020-03-16] MEDS: EPINEPHrine 4 MG in Dextrose 5% in Water 250 ML IV SCH ×2 (13:55→19:54)
[2020-03-16] MEDS: DOBUTamine 500 mg/250 ml 250 ML IVPB SCH ×3 (13:55→23:42)
[2020-03-16] MEDS ORDERED: Sodium Bicarb 50 MEQ/50 ML Abboject 8.4% SYRINGE IVP SCH ×2 (14:15→23:45)
[2020-03-16 14:19] LABS: O2 Tension (PaO2), arterial 45.2 mmHg (80.0-100.0)
[2020-03-16 14:20] LABS: Puncture Site Arterial Line
[2020-03-16] MEDS ORDERED: Amiodarone 450 MG, Admixture Fee 1 EACH in Dextrose 5% in Water 250 ML IVPB SCH (15:30)
--- NOTE | 2020-03-16 15:30 | CON ---
DATE OF CONSULTATION: 03/16/2020 HISTORY OF PRESENT ILLNESS: Macie Vargas is a 35-year-old with severe cardiomyopathy. Attempts were made to transfer to [facility]. She was complaining of severe epigastric pain, underwent an endoscopy today. Talking to Anesthesia, it sounds like she had laryngospasm during the brief procedure, which led to intubation, which eventually led to multiple codes. She has been resuscitated. PAST MEDICAL HISTORY: Remarkable for: 1. Severe cardiomyopathy. Her ejection fraction is around 20%. She is apparently on the transplant list. 2. History of diabetes. 3. History of multivessel coronary artery disease with a cardiac catheterization in January of last year, showing 3-vessel disease in this 35-year-old. 4. History of hypothyroidism. 5. History of depression. 6. History of 1 . 7. History of wrist surgery. SOCIAL HISTORY: She smoked 2 packs a day, but quit smoking. She has not been used drugs or drank. FAMILY HISTORY: Positive for vascular disease. Negative for lung disease in early age. REVIEW OF SYSTEMS: Ten-point is not obtainable. PHYSICAL EXAMINATION: VITAL SIGNS: Heart rate is 120, she is afebrile, oximetry is in the 90s, blood pressure is in the 90s. HEENT: Pupils sluggish. NECK: Supple. LUNGS: Remarkable for equal breath sounds. HEART: Regular rhythm. ABDOMEN: Soft. EXTREMITIES: Without asymmetry. LABORATORY DATA: White count 11.6, hemoglobin 8.6, and platelets 190. Sodium 139, potassium 3.7, chloride 93, bicarb 28, BUN 18, and creatinine 1.19. IMPRESSION: 1. Respiratory failure after code during the endoscopy, triggered by laryngospasm apparently. 2. Severe ischemic cardiomyopathy, tentatively on the transplant list apparently. 3. Tbsrs-kw-[id number] kidney disease. 4. Type 1 diabetes. 5. History of tobacco use, that was heavy, but at her age, unlikely to have led to chronic obstructive pulmonary disease. PLAN: We will follow everything hinges around whether or not she recovers neurologically. Critical care time 30 min. Job ID: [id number] MTDD
[2020-03-16 15:55] LABS: Actual Bicarbonate (HCO3a) 15.6 mEq/L (22-28); CO2 Tension 37.4 mmHg (35.0-45.0); Calcium, Ionized (arterial) 1.46 mmol/L (1.12-1.30); Carboxyhemoglobin (COHb) 0.8 gm% (0.0-3.0); Hemoglobin (Hb) 10.1 g/dL (12.0-16.0); Potassium - ABG Lab 3.48 mmol/L (3.70-5.30)
[2020-03-16 15:57] LABS: O2 Tension (PaO2), arterial 51.9 mmHg (80.0-100.0); Puncture Site Arterial Line; pH, Arterial 7.24 (7.35-7.45)
--- NOTE | 2020-03-16 16:06 | RAD ---
ABDOMEN 1 VIEW: Date: 03/16/2020 HISTORY: Tense abdomen without bowel sounds. FINDINGS: There are mildly prominent air-filled small bowel loops. No evidence of distention with regards to th e colon. No evidence of pneumoperitoneum on this supine projection. There are two vascular catheters projecting over the right hemipelvis. IMPRESSION: No evidence of pneumoperitoneum on this supine projection. Given patient's history, better evaluation with abdomen and pelvis with abdomen and pelvic CT is recommended. Consider utilizing IV contrast. POS: [facility]
[2020-03-16 16:18] LABS: Hemoglobin 9.3 g/dL (12.0-16.0); Mean Corpuscular HGB CONC 29.8 g/dL (32.0-36.0); Mean Corpuscular Hemoglobin 25.4 pg (27.0-31.0); Mean Corpuscular Volume 85.3 fL (78.0-98.0); Mean Platelet Volume 9.9 fL (7.4-10.4); Platelet Count 246 thou/uL (130-400); RBC Distribution Width 16.2 % (11.5-14.5); Red Blood Cell (RBC) Count 3.67 mill/uL (4.20-5.40); White Blood Cell (WBC) Count 23.9 thou/uL (4.8-10.8)
[2020-03-16 16:29] LABS: ALT (SGPT) 177 U/L (8-55); AST (SGOT) 353 U/L (5-34); Albumin 3.4 g/dL (3.5-5.0); Alkaline Phosphatase 176 U/L (40-110); Anion Gap 34 mmol/L (10-20); BUN (Urea Nitrogen) 22 mg/dL (7.0-18.7); Calc. Creatinine Clearance 70 mL/min (70-130); Calcium 11.7 mg/dL (7.8-10.44); Carbon Dioxide 14 mmol/L (22-29); Chloride 95 mmol/L (98-107); Globulin 2.3 g/dL (2.4-3.5); Glucose 174 mg/dL (70-105); Magnesium 2.2 mg/dL (1.6-2.6); Potassium 3.6 mmol/L (3.5-5.1); Protein, Total 5.7 g/dL (6.0-8.3); Sodium 139 mmol/L (136-145)
[2020-03-16 16:40] LABS: Anisocytosis SLIGHT = 6-15 cells (100X) (0-5/hpf); Band 10 % (5-11); Burr Cells SLIGHT = 2-5 cells (100X) (0-1/hpf); Eosinophils 1 % (0-10); Hypochromia SLIGHT = 6-15 cells (100X) (0-5/hpf); MDiff Complete? YES; Monocytes 4 % (0-10); Neutrophil 85 % (42-75); Platelet Morphology Comment Appears Adequate; Poikilocytosis SLIGHT = 6-15 cells (100X) (0-5/hpf); Polychromasia SLIGHT = 2-3 cells (100X) (0-2/hpf); Spherocytes SLIGHT = 1-5 cells (100X) (None Seen); Target Cells SLIGHT = 2-5 cells (100X) (0-1/hpf)
[2020-03-16] MEDS ORDERED: DISCONTINUE PREVIOUS NARCOTIC PAIN MEDICATIONS AND BENZODIAZEPINES FS SCH (16:45)
[2020-03-16] MEDS ORDERED: Fentanyl BOLUS 250 ML IVPB PRN (16:45)
[2020-03-16] MEDS ORDERED: Fentanyl CADD 100 ML IV SCH (16:45)
[2020-03-16] MEDS ORDERED: Propofol BOLUS 1,000 MG/100 ML VIAL IV PRN (16:45)
[2020-03-16] MEDS ORDERED: Propofol 1,000 MG/100 ML VIAL IV PRN (16:45)
[2020-03-16] MEDS ORDERED: Morphine 2 MG/ML VIAL SLOW IVP PRN (16:45)
--- NOTE | 2020-03-16 17:14 | OP ---
DATE OF PROCEDURE: 03/16/2020 PREOPERATIVE DIAGNOSIS: Epigastric pain. DESCRIPTION OF PROCEDURE: After informed consent was obtained, the patient was placed in a left lateral decubitus position. Anesthesia administered per the Anesthesia Department. Forward-viewing endoscope was inserted in the esophagus under direct visualization with ease and passed to the second portion of the duodenum with ease. Second portion of the duodenum was normal. The duodenal bulb was normal. The pylorus was normal. In the antrum, 2 small little nodules were noted and biopsied. The remainder of the stomach, body, fundus were all normal. The esophagus showed no significant abnormalities. The procedure had to be terminated because of the patient's difficulty with oxygenation. ASSESSMENT: 1. Two small antral nodules-status post biopsy. 2. Otherwise, normal esophagogastroduodenoscopy. RECOMMENDATIONS: CT abdomen and pelvis when the patient is stable from cardiac standpoint. Job ID: [id number]
[2020-03-16] MEDS ORDERED: Potassium Chloride 20 MEQ in Premix Bag 1 BAG IVPB SCH (17:15)
[2020-03-16] MEDS: Norepinephrine 8 MG/0.9% NS 250 ML IVPB SCH (18:28)
[2020-03-16] MEDS: Hydrocortisone Sod Succ/PF 100 mg/2 ml Vial IVP SCH (19:53)
[2020-03-16] MEDS: Lorazepam 2 MG/ML VIAL SLOW IVP PRN ×2 (19:53→23:44)
[2020-03-16] MEDS: Pantoprazole 40 MG VIAL IVP SCH (20:58)
[2020-03-16] MEDS ORDERED: Insulin Glargine 8 UNITS in Pre-Filled Syringe 1 EACH SC SCH (21:00)
[2020-03-16 23:08] LABS: Actual Bicarbonate (HCO3a) 11.2 mEq/L (22-28); Base Excess (BEa) -15.6 mEq/L (-2.0 to +3.0); CO2 Tension 29.7 mmHg (35.0-45.0); Calcium, Ionized (arterial) 1.34 mmol/L (1.12-1.30); Carboxyhemoglobin (COHb) 0.7 gm% (0.0-3.0); Hemoglobin (Hb) 9.4 g/dL (12.0-16.0); O2 Tension (PaO2), arterial 67.6 mmHg (80.0-100.0); Potassium - ABG Lab 4.01 mmol/L (3.70-5.30)
[2020-03-16 23:08] LABS: Hemoglobin 8.8 g/dL (12.0-16.0); Mean Corpuscular Volume 86.6 fL (78.0-98.0); Mean Platelet Volume 10.1 fL (7.4-10.4); Platelet Count 230 thou/uL (130-400); RBC Distribution Width 16.4 % (11.5-14.5); Red Blood Cell (RBC) Count 3.38 mill/uL (4.20-5.40); White Blood Cell (WBC) Count 23.9 thou/uL (4.8-10.8)
[2020-03-16 23:09] LABS: pH, Arterial 7.19 (7.35-7.45)
[2020-03-16 23:10] LABS: ALV-art Gradient 608.275 mmHg (0-20); Puncture Site Arterial Line
[2020-03-16 23:14] LABS: Band 31 % (5-11); Elliptocytes SLIGHT = 2-5 cells (100X) (0-1/hpf); Hypochromia SLIGHT = 6-15 cells (100X) (0-5/hpf); Lymphocytes 1 % (21-51); MDiff Complete? YES; Monocytes 2 % (0-10); Neutrophil 66 % (42-75); Platelet Morphology Comment Appears Adequate; Target Cells SLIGHT = 2-5 cells (100X) (0-1/hpf)
[2020-03-16 23:19] LABS: Anion Gap 35 mmol/L (10-20); BUN (Urea Nitrogen) 26 mg/dL (7.0-18.7); Calc. Creatinine Clearance 51 mL/min (70-130); Calcium 10.7 mg/dL (7.8-10.44); Carbon Dioxide 10 mmol/L (22-29); Chloride 94 mmol/L (98-107); Glucose 324 mg/dL (70-105); Potassium 4.3 mmol/L (3.5-5.1); Sodium 135 mmol/L (136-145)
[2020-03-16 23:37] LABS: Lactic Acid 18.9 mmol/L (0.5-2.2)
[2020-03-16] MEDS: HumaLOG 300 UNITS/3 ML VIAL SC PRN (23:43)
[2020-03-17] MEDS: Norepinephrine 8 MG/0.9% NS 250 ML IVPB SCH ×2 (00:07→05:20)
[2020-03-17 00:43] LABS: Actual Bicarbonate (HCO3a) 11.7 mEq/L (22-28); Base Excess (BEa) -14.2 mEq/L (-2.0 to +3.0); CO2 Tension 27.4 mmHg (35.0-45.0); Calcium, Ionized (arterial) 1.24 mmol/L (1.12-1.30); Carboxyhemoglobin (COHb) 0.8 gm% (0.0-3.0); Hemoglobin (Hb) 8.7 g/dL (12.0-16.0); O2 Tension (PaO2), arterial 79.2 mmHg (80.0-100.0); Potassium - ABG Lab 3.74 mmol/L (3.70-5.30); pH, Arterial 7.25 (7.35-7.45)
[2020-03-17 00:44] LABS: Puncture Site Arterial Line
[2020-03-17] MEDS ORDERED: Sodium Bicarb 50 MEQ/50 ML Abboject 8.4% SYRINGE IVP SCH ×2 (01:00→07:45)
[2020-03-17] MEDS: Lorazepam 2 MG/ML VIAL SLOW IVP PRN (01:13)
[2020-03-17] MEDS ORDERED: Insulin Regular 300 UNITS/3 ML VIAL IVP SCH (01:15)
--- NOTE | 2020-03-17 01:55 | PDOC.BPN ---
- Brief Progress Note Encounter Date: 03/17/20 Code stefanie was call while patient was being prepared for transport ECMO Dr. Painting was present and run the code and directed further management.
[2020-03-17 01:58] LABS: Actual Bicarbonate (HCO3a) 23.5 mEq/L (22-28); Base Excess (BEa) -1.3 mEq/L (-2.0 to +3.0); CO2 Tension 39.3 mmHg (35.0-45.0); Carboxyhemoglobin (COHb) 0.4 gm% (0.0-3.0); Hemoglobin (Hb) 8.8 g/dL (12.0-16.0); O2 Tension (PaO2), arterial 105.2 mmHg (80.0-100.0); Potassium - ABG Lab 3.57 mmol/L (3.70-5.30); pH, Arterial 7.39 (7.35-7.45)
[2020-03-17 02:02] LABS: ALV-art Gradient 558.675 mmHg (0-20)
[2020-03-17] MEDS ORDERED: Albumin 25% 100 ML ONE (02:14)
[2020-03-17 02:20] LABS: Hemoglobin 8.9 g/dL (12.0-16.0); Mean Corpuscular HGB CONC 29.2 g/dL (32.0-36.0); Mean Corpuscular Hemoglobin 25.2 pg (27.0-31.0); Mean Corpuscular Volume 86.2 fL (78.0-98.0); Mean Platelet Volume 10.4 fL (7.4-10.4); Platelet Count 241 thou/uL (130-400); RBC Distribution Width 16.3 % (11.5-14.5); Red Blood Cell (RBC) Count 3.53 mill/uL (4.20-5.40); White Blood Cell (WBC) Count 26.1 thou/uL (4.8-10.8)
[2020-03-17 02:37] LABS: Band 35 % (5-11); Elliptocytes SLIGHT = 2-5 cells (100X) (0-1/hpf); Hypochromia SLIGHT = 6-15 cells (100X) (0-5/hpf); Lymphocytes 6 % (21-51); MDiff Complete? YES; Monocytes 6 % (0-10); Neutrophil 53 % (42-75); Platelet Morphology Comment Appears Adequate; Target Cells SLIGHT = 2-5 cells (100X) (0-1/hpf)
[2020-03-17 02:38] LABS: ALT (SGPT) 222 U/L (8-55); AST (SGOT) 391 U/L (5-34); Albumin 3.5 g/dL (3.5-5.0); Alkaline Phosphatase 142 U/L (40-110); Anion Gap 40 mmol/L (10-20); BUN (Urea Nitrogen) 28 mg/dL (7.0-18.7); Bilirubin, Total 1.5 mg/dL (0.2-1.2); Calc. Creatinine Clearance 47 mL/min (70-130); Carbon Dioxide 10 mmol/L (22-29); Chloride 93 mmol/L (98-107); Glucose 358 mg/dL (70-105); Magnesium 2.2 mg/dL (1.6-2.6); Potassium 4.5 mmol/L (3.5-5.1); Protein, Total 5.5 g/dL (6.0-8.3); Sodium 138 mmol/L (136-145)
[2020-03-17] MEDS: EPINEPHrine 4 MG in Dextrose 5% in Water 250 ML IV SCH ×4 (02:38→13:57)
[2020-03-17 02:47] LABS: Troponin I 0.468 ng/mL (< 0.028)
[2020-03-17] MEDS: HUMULIN R 100 UNITS in Sodium Chloride 0.9% 100 ML IVPB SCH ×2 (02:48→09:25)
[2020-03-17] MEDS: Hydrocortisone Sod Succ/PF 100 mg/2 ml Vial IVP SCH ×2 (03:27→11:18)
[2020-03-17 04:09] VITALS: TEMP 98
--- NOTE | 2020-03-17 04:09 | PRG ---
DATE OF SERVICE: 03/16/2020 EVENT CODE NOTE The event took place on March 16, 2020, between 11:30 a.m. until about 2:00 p.m. This is a code blue note. HISTORY OF PRESENT ILLNESS: The patient underwent EGD for potential gastric or duodenal ulcer. Toward the end of procedure, it was reported the patient went into laryngal spasm. Then, she became very hypoxic. It was reported that there was difficulty intubating. Afterwards, she went into bradycardia and went into PEA arrest. CPR was started. Epinephrine 1 mg IV was given. She seemed to have spontaneous return of circulation for a little while. Line placement was done. However, she remained unstable. She had bradycardia and then she went into PEA arrest again. CPR was restarted. It was a long and difficult code. The CPR time took about 20 minutes with combination of epinephrine 1 mg times at least 7 times. Sodium bicarb about 6 amps and calcium chloride 1 g twice were given. Furthermore, dobutamine was titrated up to 20 mcg/kg per minute. Norepinephrine was also added and titrated up to 20 mcg/minute. Since she has adrenal insufficiency, a stressed dose steroid of 100 mg of hydrocortisone also given. With this combination, she had spontaneous return of circulation and then she was able to maintain heart rate about 110-120 and systolic blood pressure about mid 90s to low 100s. Afterwards, she was transported to the ICU. Upon reaching ICU, she went bradycardia into again to the point where she became pulseless. CPR was started. 1 mg of epinephrine was given twice 3 minutes apart. Then, she achieved return of spontaneous circulation again. Afterwards, she was stable. Post code exam showed her oxygen saturations only about 60-70%. Her FiO2 was set up to 100%. Ventilation rate was increased to 30 per minute and PEEP was set as 10 to ensure maximum oxygenation. PHYSICAL EXAMINATION: VITAL SIGNS: Post code vitals, her heart rate is about 122, blood pressure 96/55, and oxygen saturation about 78 to 82 but was increasing. GENERAL: She is nonresponsive. HEENT: Her pupils are dilated with ETT tube in place. LUNGS: She has crackles bilateral. She has large amount of pulmonary edema. HEART: Tachycardic, 2/6 holosystolic murmur near the apex. ABDOMEN: Distended. EXTREMITIES: Lower extremities, there is about 1 cm pitting edema from the feet to about her knees, is cool to touch. LABORATORY DATA: Her post code labs are white cell count 23.9, hemoglobin at 9.3, platelet at 246. Post code chemistries are sodium 139, potassium 3.6, chloride 95, bicarb of 14, and creatinine of 1.46. Her total bilirubin is two. AST was 253 and ALT was 177. ASSESSMENT: Probable negative pressure pulmonary edema caused severe hypoxia, the hypoxia caused undue stress to her heart failure condition where her LVEF was only 20%. She also has right RV dysfunction, then she went into cardiopulmonary collapse. At this point, we are fortunate to have her back. We would need to immediately finding a center that can provide mechanical circulatory support such as V-A ECMO along with probable peripheral ventricular assist device (PVAD). RECOMMENDATIONS: 1. Continue combination of dobutamine, norepinephrine and epinephrine drips to keep her MAP above 70. 2. Restart low-dose amiodarone 0.5 mg/minute because she has ventricular tachycardia in the past. This should prevent from recurring. 3. We will follow her ABG and supplement her bicarb as needed. 4. We will contact family and inform the situation. 5. We will contact all hospitals that can do V-A ECMO with PVAD and eventual left ventricular assist device support. This includes [facility], continue interaction with [facility], [facility], and [facility]. 6. The family came and her situation was discussed. They do want to proceed to full code and with all measures possible. She is only 35, they wanted to give life for her. 7. [facility] do not have ICU bed. However, they will attempt to transfer as soon as possible. [facility] has also verbally accepted her. They are also waiting for an ICU bed to open. [facility] declined because they do not have any ICU bed. [facility] showed interest but want to discuss the case internally first. It has been a pleasure to help out with Ms. Vargas. This was a long series of event. The total ICU time is 120 minutes. This is a code with subsequent ICU care. Job ID: [id number] MTDD
[2020-03-17] MEDS: DOBUTamine 500 mg/250 ml 250 ML IVPB SCH ×2 (04:26→15:54)
[2020-03-17] MEDS: HumaLOG 300 UNITS/3 ML VIAL SC SCH ×2 (05:40→11:18)
[2020-03-17] MEDS ORDERED: Levothyroxine Sodium 200 MCG VIAL IVP SCH (06:00)
--- NOTE | 2020-03-17 06:13 | PRG ---
DATE OF SERVICE: 03/17/2020 Event note for code that took place about 1 a.m. on March 17, 2020. Summary of the Code Blue Event: The patient was being prepared for transport to [facility]. She is scheduled to be flown by helicopter from [facility] to [facility] to have OR schedule for immediate placement of ECMO. She was stable with heart rate about 110 to 120, systolic blood pressure in the mid 90s, signaling her needs and wants. After all her pumps has been reorganized, she was moved to the [facility]. All of pumps were on her abdomen and chest. She was then switched from the ventilator in the ICU bed to travel ventilator. Then, she quickly desaturated and then she went to bradycardia down to the 30s and became pulseless. Thus, a code was called. She required three rounds of CPRs and four rounds of epinephrine 1 mg IV. 1-Amp of sodium bicarbonate was also given. Eventually, she had a return of her spontaneous circulation. Her O2 saturations decreased in the 40% to 50%. It was decided that she was too unstable to move even by [facility]. Eventually, she was placed back on the ICU bed with heart rate is about 115 and blood pressure 100/60. She was also placed back on the ICU ventilator with O2 saturation returning to normal range. Dobutamine had to be titrated to 25 mcg/kg/min Norepinephrine had to be titrated to 25 mcg/min Epinephrine had to be titrated to 20 mcg/min POST CODE PHYSICAL EXAMINATION: VITAL SIGNS: Her oxygen saturation improved to 92%. Heart rate 114, blood pressure 101/59. GENERAL: She is now nonresponsive again. HEENT: Showed pupils are dilated. PULMONARY: She has coarse breath sounds with bilateral crackles. ABDOMEN: Soft. EXTREMITIES: Lower extremity, cool to touch, about 1 cm pitting edema from feet about assisted towards knees. ASSESSMENT: The patient is too unstable to be moved without VA ECMO in place. The act of moving and switching the ICU bed ventilator to travel ventilator and the positioning combined to make intolerable state for the patient. This was discussed with [facility] who accepted her. At first, they were going to fly a surgeon and also fork lift technician down to do emergent insertion of VA ECMO cannula and transport by ECMO. However, due to weather they could not fly down. After hearing what happened and reviewed the case, [facility], cardiothoracic surgeon believed that this is a lost cause, they chose not to take her any more. They believe the patient has become nonsalvageable. PLAN: 1. Keep her in the ICU. Continue with combination of dobutamine and norepinephrine and epinephrine. We will adjust to maintain MAP > 70 mmHg 2. I talked to the family and explained the situation and told them about the poor prognosis. The patient may not live very long. 3. We will continue to support her for now and correct her pH by following ABGs and replace with BiCarbonate 4. Her glucose is over 300. We will also start on insulin drip. This will also lower diabetic contribution to her high lactic acid level. 5. It is likely that she will pass with family at bedside. 6. In the event that she pulls through the night and the other centers are still willing, we may pursue other avenues. For now, we will see how she does for next several hours. We will follow her lactic acid level to indicate progress. It has been pleasure taking care of Ms. Macie Vargas. If you have any questions, please give me a call. Total ICU time is 90 minutes. Job ID: [id number] MTDD
[2020-03-17 07:27] LABS: Actual Bicarbonate (HCO3a) 16.6 mEq/L (22-28); Base Excess (BEa) -9.1 mEq/L (-2.0 to +3.0); CO2 Tension 35.4 mmHg (35.0-45.0); Calcium, Ionized (arterial) 1.28 mmol/L (1.12-1.30); Carboxyhemoglobin (COHb) 0.5 gm% (0.0-3.0); Hemoglobin (Hb) 9.1 g/dL (12.0-16.0); O2 Tension (PaO2), arterial 67.7 mmHg (80.0-100.0); Potassium - ABG Lab 3.44 mmol/L (3.70-5.30); pH, Arterial 7.29 (7.35-7.45)
[2020-03-17 07:29] LABS: Puncture Site Arterial Line
[2020-03-17] MEDS ORDERED: Potassium Chloride 10 MEQ in Premix Bag 1 BAG IVPB SCH (07:45)
--- NOTE | 2020-03-17 08:10 | RAD ---
CHEST 1 VIEW: Date: 03/17/2020 INDICATION: History of code Blue. COMPARISON: Prior exam dated 03/16/2020. IMPRESSION: Diffuse air space opacity persists. Gastric catheter and ET tube tip is unchanged. Cardiomegaly is st able. No pneumothorax is evident. Pacer pad overlies the left chest wall. POS: [facility]
[2020-03-17 08:16] LABS: Anion Gap 31 mmol/L (10-20); BUN (Urea Nitrogen) 30 mg/dL (7.0-18.7); Calc. Creatinine Clearance 47 mL/min (70-130); Calcium 10.3 mg/dL (7.8-10.44); Carbon Dioxide 15 mmol/L (22-29); Chloride 94 mmol/L (98-107); Glucose 278 mg/dL (70-105); Magnesium 1.9 mg/dL (1.6-2.6); Potassium 3.5 mmol/L (3.5-5.1); Sodium 136 mmol/L (136-145)
[2020-03-17] MEDS: Potassium Chloride 10 MEQ in Premix Bag 1 BAG IVPB SCH (08:30)
[2020-03-17 08:37] LABS: Lactic Acid 16.1 mmol/L (0.5-2.2)
[2020-03-17 09:12] VITALS: BMI 37.9
[2020-03-17] MEDS: Ivabradine 5 MG TAB PO SCH (09:13)
[2020-03-17] MEDS: Venlafaxine HCl 37.5 MG TAB PO SCH (09:13)
[2020-03-17] MEDS: Atorvastatin Calcium 40 MG TAB PO SCH (09:13)
[2020-03-17] MEDS: Amiodarone 200 MG TAB PO SCH (09:17)
[2020-03-17] MEDS: Enoxaparin Sodium 40 MG/0.4 ML SYRINGE SC SCH (09:18)
[2020-03-17] MEDS: Aspirin 81 mg Enteric Coated Tablet PO SCH (09:18)
[2020-03-17] MEDS: Clopidogrel Bisulfate 75 MG TAB PO SCH (09:18)
[2020-03-17] MEDS: Pantoprazole 40 MG VIAL IVP SCH (09:18)
[2020-03-17] MEDS: Albumin 25% 25 GM/100 ML BOT IVPB SCH (09:18)
[2020-03-17] MEDS ORDERED: Sodium Bicarb 50 MEQ/50 ML Abboject 8.4% SYRINGE ONE (09:23)
[2020-03-17] MEDS ORDERED: EPINEPHrine 1 MG/10 ML Abboject SYRINGE ONE (09:23)
[2020-03-17] MEDS: Hydrocortisone 10 mg Tablet PO SCH (09:57)
[2020-03-17] MEDS: Fludrocortisone Acetate 0.1 MG TAB PO SCH (09:57)
[2020-03-17] MEDS: Sucralfate 1 GM/10 ML UDCUP PO SCH (10:30)
--- NOTE | 2020-03-17 11:06 | PRG ---
DATE OF SERVICE: SUBJECTIVE: The patient is intubated. The events of the last 24 hours were noted. OBJECTIVE: VITAL SIGNS: Temperature is 98, heart rate 115, blood pressure 101/60. CHEST: Clear. CARDIOVASCULAR: Regular rate and rhythm. ABDOMEN: Benign. LABORATORY DATA: Shows white blood cell count of 23.9, hemoglobin 8.8, hematocrit 29.2, platelet count 230. Chemistries significant for BUN of 30, creatinine 2.41, glucose 278. ASSESSMENT: 1. Cardiomyopathy. 2. Dyspepsia. 3. Respiratory failure. RECOMMENDATIONS: 1. At some point, if the patient's cardiac status stabilizes, consider CT abdomen. 2. Begin tube feedings if the patient is not to be transferred. Job ID: [id number]
[2020-03-17] MEDS ORDERED: Magnesium 2 GM/50 ML 2 GM in Premix Bag 1 BAG IVPB SCH (11:30)
[2020-03-17 12:56] LABS: Base Excess (BEa) -2.6 mEq/L (-2.0 to +3.0); CO2 Tension 31.7 mmHg (35.0-45.0); Calcium, Ionized (arterial) 1.22 mmol/L (1.12-1.30); Carboxyhemoglobin (COHb) 0.6 gm% (0.0-3.0); Hemoglobin (Hb) 8.6 g/dL (12.0-16.0); O2 Tension (PaO2), arterial 88.5 mmHg (80.0-100.0); Potassium - ABG Lab 3.65 mmol/L (3.70-5.30); pH, Arterial 7.44 (7.35-7.45)
[2020-03-17 13:03] LABS: ALV-art Gradient 584.875 mmHg (0-20); Puncture Site Arterial Line
[2020-03-17 13:07] LABS: Hemoglobin 7.9 g/dL (12.0-16.0); Mean Corpuscular HGB CONC 30.2 g/dL (32.0-36.0); Mean Corpuscular Hemoglobin 25.5 pg (27.0-31.0); Mean Corpuscular Volume 84.2 fL (78.0-98.0); Mean Platelet Volume 10.4 fL (7.4-10.4); Platelet Count 225 thou/uL (130-400); RBC Distribution Width 16.4 % (11.5-14.5); Red Blood Cell (RBC) Count 3.09 mill/uL (4.20-5.40); White Blood Cell (WBC) Count 28.6 thou/uL (4.8-10.8)
[2020-03-17 13:22] LABS: Lactic Acid 12.4 mmol/L (0.5-2.2)
[2020-03-17 13:23] LABS: ALT (SGPT) 338 U/L (8-55); AST (SGOT) 658 U/L (5-34); Albumin 4.2 g/dL (3.5-5.0); Alkaline Phosphatase 115 U/L (40-110); Anion Gap 28 mmol/L (10-20); BUN (Urea Nitrogen) 32 mg/dL (7.0-18.7); Bilirubin, Total 1.4 mg/dL (0.2-1.2); Calc. Creatinine Clearance 46 mL/min (70-130); Calcium 10.4 mg/dL (7.8-10.44); Carbon Dioxide 20 mmol/L (22-29); Chloride 91 mmol/L (98-107); Globulin 1.9 g/dL (2.4-3.5); Glucose 167 mg/dL (70-105); Potassium 3.6 mmol/L (3.5-5.1); Protein, Total 6.1 g/dL (6.0-8.3); Sodium 135 mmol/L (136-145)
[2020-03-17 13:29] LABS: Anisocytosis SLIGHT = 6-15 cells (100X) (0-5/hpf); Band 23 % (5-11); Burr Cells SLIGHT = 2-5 cells (100X) (0-1/hpf); Hypochromia SLIGHT = 6-15 cells (100X) (0-5/hpf); Lymphocytes 7 % (21-51); MDiff Complete? YES; Monocytes 1 % (0-10); Neutrophil 69 % (42-75); Nucleated RBC 1 % (0); Ovalocytes SLIGHT = 2-5 cells (100X) (0-1/hpf); Platelet Morphology Comment Appears Adequate; Poikilocytosis SLIGHT = 6-15 cells (100X) (0-5/hpf); Polychromasia MODERATE = 3-4 cells (100X) (0-2/hpf); Schistocytes SLIGHT = 2-5 cells (100X) (0-1/hpf); Spherocytes SLIGHT = 1-5 cells (100X) (None Seen); Target Cells SLIGHT = 2-5 cells (100X) (0-1/hpf)
[2020-03-17] MEDS ORDERED: Midazolam HCl 2 mg/2 ml Vial ONE (14:26)
[2020-03-17] MEDS ORDERED: Fentanyl 100 MCG/2 ML VIAL ONE (14:26)
[2020-03-17] MEDS ORDERED: Rocuronium Bromide 10 MG/ML (10ML VIAL) ONE (14:26)
[2020-03-17] MEDS ORDERED: Lidocaine 1% (PF) 30 ML VIAL ONE (14:41)
[2020-03-17 15:14] LABS: Actual Bicarbonate (HCO3a) 17.4 mEq/L (22-28); Base Excess (BEa) -4.8 mEq/L (-2.0 to +3.0); Calcium, Ionized (arterial) 0.94 mmol/L (1.12-1.30); Carboxyhemoglobin (COHb) 0.6 gm% (0.0-3.0); Hemoglobin (Hb) 7.4 g/dL (12.0-16.0); pH, Arterial 7.51 (7.35-7.45)
[2020-03-17 15:20] LABS: CO2 Tension 22.4 mmHg (35.0-45.0); O2 Tension (PaO2), arterial 561.9 mmHg (80.0-100.0); Puncture Site Arterial Line
--- NOTE | 2020-03-17 18:20 | PRG ---
DATE OF SERVICE: 03/17/2020 SUBJECTIVE: Ms. Vargas had a very difficult day. She went down to EGD due to abdominal pain, dropping hemoglobin, suspicion for bleeding ulcer, or other esophageal-gastric problems. She became hypoxic, likely due to laryngospasm. She was not able to be intubated for a while resulting in severe hypoxia. Afterwards, she went into PEA cardiac arrest. There were two codes done and the second one was long and is extensive. She was able to achieve spontaneous return of circulation. She was coded again upon arriving in the ICU. That code was much shorter. Please see the prior progress code notes for details. Afterwards, she was able to recover consciousness. She became interactive, this is demonstrating she has intact neurologic status. She was accepted by [facility]. First, they wanted to send a mobile ECMO team to cannulate at [place]. However, the weather prevented them to come in. An attempt was made to fly her by helicopter from [place] to [facility]. The transfer process did not go well. She became very hypoxic on the gurney and she was bradycardic down completely to asystole. She immediately required CPR and epinephrine three rounds again. She has successfully survived that code. Afterwards, she was able to maintain steady blood pressure. She woke up this morning and is interactive again. REVIEW OF SYSTEMS: Review of systems cannot be done as the patient is intubated. ACTIVE MEDICATIONS: Include: 1. Amiodarone 400 mg b.i.d. 2. Aspirin 81 mg daily. 3. Atorvastatin 80 mg at bedtime. 4. Plavix 75 mg daily. 5. Dobutamine currently at 25 mcg/kg per minute. 6. Enoxaparin 40 mg subcutaneous daily. We will hold this for the upcoming procedure. 7. Epinephrine currently at 20 mcg/minute. 8. Sodium bicargonate boluses. 9. Fludrocortisone 0.1 mg daily. 10. Hydrocortisone 10 mg in the morning and 5 mg in the afternoon. However, this has been superseded by hydrocortisone 100 mg IV q.8 hours for stress dose. 11. She is currently on insulin drip. 12. Ivabradine 2.5 mg b.i.d. This is being held. 13. Levothyroxine 75 mcg IV at 6 o'clock in the morning. 14. Norepinephrine currently at 20 mcg/minute. 15. Protonix 40 mg IV q.12 hours. 16. Potassium 10 mEq IV daily. She will receive an extra supplement of potassium. 17. Vasopressin 0.04 units, currently not being used and standby as needed. PHYSICAL EXAMINATION: VITAL SIGNS: Heart rate about 115 to 116. Her art-line is dampened. Her cuff pressure measures at 125/63, we undamped art-line, it will be closer to correlate with the cuff pressure. If you move her abdomen, her art-line, pulses will increase significantly. GENERAL: The patient is intubated, but looks fatigued. She will open her eyes spontaneous, follow directions. HEENT: EOMI with ET tube in place. PULMONARY: There is good air movement bilateral. There are crackles bilateral, this is a lot less crackles than last night. CARDIAC: Tachycardia S1, S2. There is S3 present with 2/6 holosystolic murmur at the apex. ABDOMEN: Soft, nontender. Positive bowel sounds. EXTREMITIES: She has about 1 cm pitting edema from feet about intermediate toward knees that is her usual. LABORATORY VALUES: Her white cell count is 23.9. Her hemoglobin is 8.9. Her platelets are 241. Her lactic acid has decreased from 24 over the last night down to 16.1 this morning. Her electrolytes show sodium 136, potassium 3.5, chloride 94, bicarb of 15, BUN of 30, creatinine of 2.41, and glucose at 278 that is a 7:40 this morning, but glucose at 9 o'clock this morning 166. Her latest ABG drawn at 7:20 this morning, pH 7.29, pCO2 of 35, and PO2 of 67.7. She received one amp of bicarb this morning for this already, but she has minimal urine output, however, looking the bag, there is about 100 mL urine in the bag. ASSESSMENT: 35-year-old lady is in cardiogenic shock and pulmonary edema. She will need mechanical circulatory support to survive. She is nearly maxed out on all categories of medications. She has heart failure with reduced ejection fraction. Her LVEF 20%. She also has a right ventricular dysfunction/cor pulmonale. She has paroxysmal ventricular tachycardia. She also has an adrenal insufficiency that required supplementation. She has a brittle type 1 diabetes. She has hypothyroidism. She has self-reported duodenal ulcer, but was not seen on the EGD, but then she is also anemic with low iron. At this point, we will need to find a center that can take care her. [facility] accepted her for transfer. After discussing the case with Dr. Gray, they will assemble a mobile ECMO team. They will perform a cannulation here - [facility] and transfer back to [place], [place]. This seems like the best option. RECOMMENDATIONS: 1. Continue current regimen of dobutamine, epinephrine, and norepinephrine; titrate as we have been doing to keep MAP >70 mmHg. 2. Please provide second amp of bicarb. 3. Please supplement total of potassium of 20 mEq by IV. 4. Please hold enoxaparin this morning in anticipation of ECMO cannulation. 5. I was going to give her IV Lasix. However, since ECMO is coming and she is stable in terms of hemodynamics, I will not give her any IV Lasix. She may need volume for cannulation. After the ECMO, she will be on oxygen, thus, her pulmonary status will not be as important. 6. We will continue to work with [facility] team to ensure that the patient is safely transferred to [facility] for mechanical circulatory support with possibly following LVAD in a potential heart transplant in the future. 7. Complete labs of ABG, CBC, CMP, and magnesium at 1-hour before [facility] team arrival. We will supplement before cannulation. It is anticipated that she may need transfusion of 1-unit of blood. Multiple meetings occur besides taking care of the patient. The total ICU time is 90 minutes. This includes personally performing history and physical, titrating multiple drips, meeting with [facility] personal and also meeting with family members. It has been a pleasure taking care of Ms. Macie Vargas. If any questions, please give me a call. Job ID: [id number] [facility]
--- NOTE | 2020-03-17 19:35 | DIS ---
DATE OF ADMISSION: 03/12/2020 DATE OF DISCHARGE: 03/17/2020 DISCHARGE DIAGNOSIS: 1. Acute on chronic systolic congestive heart failure exacerbation with ejection fraction of 20% to 25%. 2. Ischemic cardiomyopathy with depressed ejection fraction of 20% to 25%. 3. Cardiac arrest with return of spontaneous circulation x2. 4. Multivessel coronary artery disease, medically managed. 5. Diabetes mellitus type 1. 6. Hypothyroidism. 7. Hyponatremia. 8. Acute on chronic normocytic anemia, likely multifactorial. CONSULTATIONS: 1. Dr. George Painting with Advanced Heart Failure service. 2. Dr. Nicholas Knight with GI Service. 3. Dr. Jeronimo Astudillo with Pulmonary Critical Care Service. 4. Dr. Rodriguez with Electrophysiology Service. PERTINENT LABORATORY AND X-RAY FINDINGS: Sodium ranged between 126 to 139, potassium ranged between 3.6 to 5.3, creatinine ranged between 1.02 to 2.49. Lactic acid level ranged between 1.9 to 24.0. Magnesium level ranged between 1.3 to 2.2. Serum iron level 23, ferritin 56. AST ranged between 73 to 658, ALT ranged between 61 to 338. Troponin I ranged between 0.145 to 0.468. BNP ranged between 831 to 1480. TSH 12.31, free T3 at 1.52, free T4 at 0.77. CBC showed a white blood cell count ranging between 7.7 to 28.6, hemoglobin ranged between 8.0 to 9.3, MCV 84. D-dimer 1.37. COVID-19 PCR not detected, 03/11/2020. Stool Hemoccult dated 03/13/2020 negative x1. H. pylori antigen dated 03/14/2020 negative. 2D transthoracic echocardiogram dated 03/12/2020 showed ejection fraction of 20% to 25%, decreased from 30% to 35% in January 2020. Global hypokinesis. Moderately enlarged right ventricle cavity. Kgal-cy-yttnrtmg left atrial enlargement. Markedly enlarged right atrium. Qixh-ke-yssfmzhl tricuspid regurgitation. Abdominal ultrasound dated 03/14/2020 showed negative findings. Abdominal radiographs dated 03/16/2020 showed no acute process. Portable chest x-ray dated 03/16/2020 showed diffuse bilateral infiltrates. HOSPITAL COURSE: The patient was initially admitted after presenting with increasing shortness of breath with associated weight gain and lower extremity edema consistent with acute systolic congestive heart failure exacerbation in the context of known chronic systolic heart failure with prior ejection fraction of 35% in January 2020. The patient also with a recent diagnosis of multivessel coronary artery disease by cardiac catheterization with recommendations for medical management due to the diffuse nature and small caliber vessels. The patient initially received IV Lasix and monitored for clinical response. 2D transthoracic echocardiogram was repeated showing a decreased ejection fraction in the 20% to 25% range prompting Cardiology and Advanced Heart Failure specialty consultation. Due to patient's advanced coronary artery disease and decreased ejection fraction, Advanced Heart Failure speciality consultation was obtained with recommendations for inotropic support and diuretic therapy. The patient was also being considered for transfer to a higher level of care for potential left ventricular assist device and potential cardiac transplant consideration. The patient was also evaluated due to worsening anemia with serial hemoglobins showing overall decreased trend in the mid 8 range. GI consultation was obtained, at which point, the patient was deemed appropriate candidate to undergo EGD evaluation. No specific findings were noted on the EGD to explain the anemia as the anemia likely was multifactorial given overall heart failure and likely dilutional effect from volume overload. After the EGD procedure, patient had pulseless electrical activity, undergoing Code Blue. The patient had successful return of circulation after cardiac arrest and was monitored in the critical care unit on mechanical ventilation. Coordination was being made to transfer the patient to a higher level of care including [facility], however, as patient was prepping for air evacuation and transported to the [facility] for [employer], the patient had another episode of asystole and cardiac arrest requiring CPR and ACLS protocol. The patient received multiple pressor agents and the air evacuation was canceled. The patient stabilized on multiple pressor agents including norepinephrine, epinephrine, and dobutamine with additional infusions of albumin and Lasix. Due to the patient's tenuous clinical state, coordination was successful for obtaining an ECMO Transport Team from [facility], who presented to [facility] in [place] undergoing initiation of ECMO and emergent transport to [facility] for further evaluation to consider left ventricular assist device and potential cardiac transplant. The patient was discharged with the ECMO Transport Team on 03/17/2020. DISCHARGE MEDICATIONS: 1. Aspirin 81 mg daily. 2. Lipitor 80 mg daily. 3. Plavix 75 mg daily. 4. Ferrous sulfate 325 mg p.o. q.48 hours. 5. Florinef 0.1 mg p.o. daily. 6. Lasix 20 mg p.o. b.i.d. 7. Lantus Solostar 23 units subcutaneously q.a.m. 8. Corlanor 2.5 mg p.o. b.i.d. 9. Levothyroxine 100 mcg p.o. daily. 10. Cytomel 5 mcg p.o. daily. 11. Metoprolol succinate 12.5 mg p.o. q.12 hours. 12. Protonix 40 mg p.o. daily. 13. Effexor 37.5 mg p.o. daily. FOLLOWUP: The patient may follow up with [place], [place], with Cardiology and Advanced Heart Failure Team at [facility], 03/17/2020. CONDITION ON DISCHARGE: Guarded. ACTIVITY: Bedrest. DIET: N.p.o. status. CODE STATUS: Full. DISPOSITION: Transferred to [facility], 03/17/2020. TIME SPENT: Total time preparing and coordinating discharge is 38 minutes. Job ID: [id number]
--- NOTE | 2020-03-19 02:46 | PQF ---
CLINICAL DOCUMENTATION CLARIFICATION FORM: Dear : Vernon Marte Date / Time: 03/19/2020 9507 Please exercise your independent, professional judgment in responding to the clarification form. Clinical indicators are provided on the bottom of this form for your review In your clinical opinion based on clinical findings below, can you please specify acuity of Respiratory failure if: Please check appropriate box(es): [ x ] Acute Respiratory Failure [ ] Chronic Respiratory Failure [ ] Other diagnosis [ ] Unable to determine Physician Signature: Date/Time: For continuity of documentation, please document condition throughout progress notes and discharge summary. Thank You To be completed by CDI/Coding staff for physician review: Present Clinical Indicators - Signs / Symptoms / Labs Results and Location in Medical Record [x] Code blue was call while patient was being prepared for transport ECMO PN p1 03/17 Dr Sanders [x] She became hypoxic PN 03/16 Dr Painting [x] Probable negative pressure pulmonary edema caused severe hypoxic, the hypoxic caused undue stress to her heart failure PN p1 03/16 Dr Painting [x] Respiratory failure PN p1 03/17 DR Knight Present Risk Factors Results and Location in Medical Record [x] CHF exacerbation PN 03/16 Dr Painting [x] SVT PN p1 03/16 Dr Painting [x] Cardiomyopathy PN p1 03/16 Dr Painting [x] CAD PN 03/16 Dr Painting Present Treatments Results and Location in Medical Record [x] Mechanical ventilation Respiratory panel [x] Admitted to ICU Order 03/16 [x] Monitor O2 sat Order 03/16 [x] ABG and Bicardonate Order 03/16 CDS/Cable Machine Operator Signature: Edilia Singh Phone #: [phone] Date/Time: 03/19/20 Acute Respiratory Failure: ABG pH < 7.35 or > 7.45; Decreased oxygen saturation (<90% room air or < 95% on oxygen); PCO2 > 50 mm Hg; PO2 < 60 mm Hg; Labored or rapid respirations ARDS: Dx Criteria [Minto ARDS]: Respiratory symptoms within one week of a known clinical insult (e.g. shock, infection, surgery, trauma) Bilateral opacities in CXR/Chest CT not due to CHF or fluid This is a permanent part of the Medical Record [facility]
[2020-03-20 13:38] LABS: Actual Bicarbonate (HCO3a) 21.6 mEq/L (22-28); Analyzer IN Cardio OR; Base Excess (BEa) -4.3 mEq/L (-2.0 to +3.0); CO2 Tension 42.9 mmHg (35.0-45.0); Calcium, Ionized (arterial) 1.34 mmol/L (1.12-1.30); Carboxyhemoglobin (COHb) 0.8 gm% (0.0-3.0); Hemoglobin (Hb) 9.5 g/dL (12.0-16.0); O2 Tension (PaO2), arterial 110.9 mmHg (80.0-100.0); Potassium - ABG Lab 3.54 mmol/L (3.70-5.30); pH, Arterial 7.32 (7.35-7.45)
[2020-03-20 13:38] LABS: Actual Bicarbonate (HCO3a) 23.5 mEq/L (22-28); Analyzer IN Cardio OR; Base Excess (BEa) -6.8 mEq/L (-2.0 to +3.0); Calcium, Ionized (arterial) 1.17 mmol/L (1.12-1.30); Carboxyhemoglobin (COHb) 0.7 gm% (0.0-3.0); Hemoglobin (Hb) 10.1 g/dL (12.0-16.0); Potassium - ABG Lab 4.93 mmol/L (3.70-5.30)
[2020-03-20 13:38] LABS: Actual Bicarbonate (HCO3a) 17.5 mEq/L (22-28); Analyzer IN Cardio OR; Base Excess (BEa) -14.5 mEq/L (-2.0 to +3.0); Calcium, Ionized (arterial) 2.15 mmol/L (1.12-1.30); Carboxyhemoglobin (COHb) 0.3 gm% (0.0-3.0); O2 Tension (PaO2), arterial 62.8 mmHg (80.0-100.0); Potassium - ABG Lab 4.15 mmol/L (3.70-5.30)
[2020-03-20 13:39] LABS: CO2 Tension 77.2 mmHg (35.0-45.0)
[2020-03-20 13:40] LABS: O2 Tension (PaO2), arterial 55.3 mmHg (80.0-100.0)
[2020-03-20 13:41] LABS: Puncture Site Arterial Line
[2020-03-20 13:44] LABS: Puncture Site Arterial Line
[2020-03-20 13:45] LABS: pH, Arterial 6.97 (7.35-7.45)
[2020-03-20 13:46] LABS: CO2 Tension 78.7 mmHg (35.0-45.0)
[2020-03-20 13:47] LABS: Puncture Site Arterial Line
== END 2020-03-17 15:50 | disposition short-term general hospital (02) | DRG 291 ==
LOC: ERS 23:54 → 2NO 03-11 00:36 → OBSVTOIN 03-12 13:46 → IMCU/EMU 03-13 22:34 → 2NO 03-14 14:20 → CCU 03-16 12:48
PROVIDERS: ADMIT Student in an Organized Health Care Education/Training Program; ATTEND Family Medicine
PROC: 02H633Z Insertion of Infusion Device into Right Atrium, Percutaneous Approach (ICD-10-PCS; 2020-03-13)
PROC: B548ZZA Ultrasonography of Superior Vena Cava, Guidance (ICD-10-PCS; 2020-03-13)
PROC: B518ZZA Fluoroscopy of Superior Vena Cava, Guidance (ICD-10-PCS; 2020-03-13)
PROC: 30233N1 Transfusion of Nonautologous Red Blood Cells into Peripheral Vein, Percutaneous Approach (ICD-10-PCS; 2020-03-15)
PROC: 3E033XZ Introduction of Vasopressor into Peripheral Vein, Percutaneous Approach (ICD-10-PCS; principal; 2020-03-16)
PROC: 5A12012 Performance of Cardiac Output, Single, Manual (ICD-10-PCS; 2020-03-16)
PROC: 5A1935Z Respiratory Ventilation, Less than 24 Consecutive Hours (ICD-10-PCS; 2020-03-16)
PROC: 0BH17EZ Insertion of Endotracheal Airway into Trachea, Via Natural or Artificial Opening (ICD-10-PCS; 2020-03-16)
PROC: 0DB78ZX Excision of Stomach, Pylorus, Via Natural or Artificial Opening Endoscopic, Diagnostic (ICD-10-PCS; 2020-03-16)
DX: I50.43 Acute on chronic combined systolic (congestive) and diastolic (congestive) heart failure (principal); I46.8 Cardiac arrest due to other underlying condition; J96.01 Acute respiratory failure with hypoxia; R57.0 Cardiogenic shock; E87.1 Hypo-osmolality and hyponatremia; E27.40 Unspecified adrenocortical insufficiency; I47.2 Ventricular tachycardia; E87.2 Acidosis; I25.5 Ischemic cardiomyopathy; I25.10 Atherosclerotic heart disease of native coronary artery without angina pectoris; E03.9 Hypothyroidism, unspecified; E87.5 Hyperkalemia; F32.9 Major depressive disorder, single episode, unspecified; E78.5 Hyperlipidemia, unspecified; E78.00 Pure hypercholesterolemia, unspecified; I50.82 Biventricular heart failure; I50.810 Right heart failure, unspecified; I27.81 Cor pulmonale (chronic); K21.9 Gastro-esophageal reflux disease without esophagitis; I08.1 Rheumatic disorders of both mitral and tricuspid valves; I27.20 Pulmonary hypertension, unspecified; N18.9 Chronic kidney disease, unspecified; D63.1 Anemia in chronic kidney disease; E10.22 Type 1 diabetes mellitus with diabetic chronic kidney disease; R00.1 Bradycardia, unspecified; E83.42 Hypomagnesemia; I95.9 Hypotension, unspecified; Z88.8 Allergy status to other drugs, medicaments and biological substances; Z88.1 Allergy status to other antibiotic agents; Z91.041 Radiographic dye allergy status; Z79.899 Other long term (current) drug therapy; Z79.4 Long term (current) use of insulin; Z79.890 Hormone replacement therapy; Z79.02 Long term (current) use of antithrombotics/antiplatelets; Z87.891 Personal history of nicotine dependence; Z82.3 Family history of stroke; Z82.49 Family history of ischemic heart disease and other diseases of the circulatory system; Z87.11 Personal history of peptic ulcer disease; Z79.82 Long term (current) use of aspirin; Z78.1 Physical restraint status; I45.10 Unspecified right bundle-branch block; Z20.822 Contact with and (suspected) exposure to COVID-19
CPT/HCPCS: 36415; 36416; 36430; 36569; 71045; 74018; 80048; 80400; 82274; 82728; 82805; 83540; 83550; 83605; 83690; 83735; 83880; 84439; 84443; 84481; 84484; 85025; 85379; 86850; 86900; 86901; 87338; 87635; 88305; 92950; 93005; 93010; 93306; 93798; 93975; 94002; 94003; 96372; 96374; 96375; 96376; 97139; 99285; C1751; C9113; G0378; J0171; J0282; J0834; J1250; J1642; J1644; J1650; J1720; J1815; J1940; J2001; J2060; J2250; J2260; J2405; J2704; J3010; J3475; J3480; J3490; J7070; P9016; P9047; U0003; U0005